=== PATIENT | male | born 1955 | race Caucasian/White ===

== ENCOUNTER → 2018-02-25 | Outpatient (CLI) | payer BC ==
[~2018-02-25] MED LIST: ALBU1AER9 INH; ATV1 PO; CALC-393 PO; CLOP1TAB15 PO; CLR10 PO; COLE1TAB5 PO; DOCU-94 PO; EZET10TA63 PO; FLUT1AER5 INH; LANS30CA12 PO; LOSA1TAB38 PO; MULT-506 PO; NIFE1TAB PO; OMEG10007 PO; PROP1TAB PO; ROSU5TAB PO; RXC5 PO; TRAM-10 PO; VALA500T60 PO
== END | disposition home or self-care (01) ==
LOC: C.RDSM 15:03
PROVIDERS: ATTEND Orthopaedic Surgery Sports Medicine
DX: M25.562 Pain in left knee (principal)

== ENCOUNTER 2021-06-27 05:38 | Observation (INO) ==
--- NOTE | 2021-05-08 14:56 | PAT Medication Instructions ---
Medication Instructions Date of Service May 08, 2021 Home Medications calcium carbonate 500 mg calcium (1,250 mg) tablet 500 mg PO QAM clopidogrel 75 mg tablet (Plavix) 75 mg PO QAM colestipol 1 gram tablet 1 g PO HS tab ezetimibe 10 mg tablet (Zetia) 10 mg PO HS lansoprazole 30 mg capsule,delayed release (Prevacid) 30 mg PO QAM losartan 100 mg tablet (Cozaar) 100 mg PO QAM omega-3 fatty acids 1,000 mg capsule (Fish Oil Concentrate) 1,000 mg PO QAM rosuvastatin 5 mg tablet (Crestor) 5 mg PO HS valacyclovir 500 mg tablet (Valtrex) 500 mg PO QAM albuterol sulfate 90 mcg/actuation aerosol inhaler (Ventolin HFA) 2 puff INHALATION Q4H PRN buspirone 10 mg tablet 10 mg PO BID fluticasone propionate 110 mcg/actuation HFA aerosol inhaler (Flovent HFA) 1 puff INHALATION Q12H hydrochlorothiazide 12.5 mg tablet 12.5 mg PO BID loratadine 10 mg capsule 10 mg PO DAILY PRN mecobalamin (vitamin B12) 1,000 mcg chewable tablet 1,000 mcg PO QAM nifedipine 90 mg tablet,extended release 90 mg PO HS tramadol 50 mg tablet 50 mg PO Q6H PRN propranolol 120 mg capsule,extended release 24 hr 120 mg PO HS ASK your prescriber and surgeon clopidogrel 75 mg tablet (Plavix) 75 mg PO QAM STOP taking 2 weeks before surgery omega-3 fatty acids 1,000 mg capsule (Fish Oil Concentrate) 1,000 mg PO QAM STOP taking 48 hours before surgery colestipol 1 gram tablet 1 g PO HS DO NOT take the morning of surgery calcium carbonate 500 mg calcium (1,250 mg) tablet 500 mg PO QAM losartan 100 mg tablet (Cozaar) 100 mg PO QAM mecobalamin (vitamin B12) 1,000 mcg chewable tablet 1,000 mcg PO QAM hydrochlorothiazide 12.5 mg tablet 12.5 mg PO BID loratadine 10 mg capsule 10 mg PO DAILY PRN Take morning of surgery With a small sip of water, OTHERWISE NOTHING TO EAT OR DRINK AFTER MIDNIGHT: lansoprazole 30 mg capsule,delayed release (Prevacid) 30 mg PO QAM tramadol 50 mg tablet 50 mg PO Q6H PRN (up to 4 hours before surgery) fluticasone propionate 110 mcg/actuation HFA aerosol inhaler (Flovent HFA) 1 puff INHALATION Q12H albuterol sulfate 90 mcg/actuation aerosol inhaler (Ventolin HFA) 2 puff INHALATION Q4H PRN (if needed-bring with you to hospital on day of surgery if able) buspirone 10 mg tablet 10 mg PO BID valacyclovir 500 mg tablet (Valtrex) 500 mg PO QAM Take evening before surgery propranolol 120 mg capsule,extended release 24 hr 120 mg PO HS nifedipine 90 mg tablet,extended release 90 mg PO HS rosuvastatin 5 mg tablet (Crestor) 5 mg PO HS buspirone 10 mg tablet 10 mg PO BID hydrochlorothiazide 12.5 mg tablet 12.5 mg PO BID ezetimibe 10 mg tablet (Zetia) 10 mg PO HS Other Notes If you have any questions please call us at [phone] or [phone] or [phone] or [phone]
--- NOTE | 2021-05-14 11:24 | Anesthesiology Consultation ---
Date of Service May 14, 2021 Assessment & Plan (1) Encounter for pre-operative examination: Chart Review Chart Review: Acceptable Risk for Surgery (pending preop Covid testing results ) and Patient seen in Pre Admission Testing Per PAT appt on 05/14/21, patient denies any recent travel or large group activities. No known Covid positive contacts or Covid related symptoms. No known Covid infection in the past 90 days. Pt is vaccinated for Covid. Preop Covid testing scheduled 05/28/21= will await results. Educated on importance of self quarantining, social distancing and wearing mask in public for the patient one week prior to surgery and after Covid testing done Vascular surgery made aware of upcoming prostatectomy- per vascular surgery response on 05/02/21= "I think it would be reasonable to hold his Plavix for 5-7 days for his procedure. I would suspect that Urology will not allow him to take ASA for the procedure. Should resume Plavix post surgery PRAMOD when Urology deems it safe." Teaching & Discussion Pre-Anesthesia Teaching/Discussion Notes: Instructed NPO after midnight before surgery,except medications with 15 cc of water. Medication instructions provided according to the PAT guidelines. History Surgery Operation Date: 05/30/21 07:30 Proposed Procedures p Laparoscopic Robotic Assisted Radical Retropubic Prostatectomy, Possible Open Possible Pelvic Lymph Node Dissection, Possible Suprapubic Tube Palcement - Ankur Chin, DO Height/Weight Height: 5 ft 10 in Weight: 103.6 kg Allergies Allergy/AdvReac Type Severity Reaction Status Date / Time niacin Allergy upset Verified 05/07/21 11:07 stomach valsartan [From Diovan] Allergy Rash Verified 05/07/21 11:07 hydrocodone AdvReac Mild GI upset Verified 05/14/21 11:22 [id number]-Ntq Reductase AdvReac Mild MYALGIAS Verified 05/07/21 11:07 Inhibitor enalapril AdvReac cough Verified 05/07/21 11:07 fenofibrate AdvReac abdominal Verified 05/07/21 11:07 discomfort gemfibrozil AdvReac abdominal Verified 05/07/21 11:07 discomfort Medications Home Medications Medication Instructions Recorded Confirmed Last Taken calcium carbonate 500 mg calcium 500 mg PO QAM 11/27/20 05/07/21 Unknown (1,250 mg) tablet clopidogrel 75 mg tablet (Plavix) 75 mg PO QAM 11/27/20 05/07/21 Unknown colestipol 1 gram tablet 1 g PO HS tab 11/27/20 05/07/21 Unknown ezetimibe 10 mg tablet (Zetia) 10 mg PO HS 11/27/20 05/07/21 Unknown lansoprazole 30 mg capsule,delayed 30 mg PO QAM 11/27/20 05/07/21 Unknown release (Prevacid) losartan 100 mg tablet (Cozaar) 100 mg PO QAM 11/27/20 05/08/21 Unknown omega-3 fatty acids 1,000 mg 1,000 mg PO QAM 11/27/20 05/07/21 Unknown capsule (Fish Oil Concentrate) rosuvastatin 5 mg tablet (Crestor) 5 mg PO HS 11/27/20 05/07/21 Unknown valacyclovir 500 mg tablet 500 mg PO QAM 11/27/20 05/07/21 Unknown (Valtrex) albuterol sulfate 90 mcg/actuation 2 puff INHALATION Q4H PRN g 04/03/21 05/07/21 Unknown aerosol inhaler (Ventolin HFA) buspirone 10 mg tablet 10 mg PO BID 04/03/21 05/07/21 Unknown fluticasone propionate 110 1 puff INHALATION Q12H 04/03/21 05/07/21 Unknown mcg/actuation HFA aerosol inhaler (Flovent HFA) hydrochlorothiazide 12.5 mg tablet 12.5 mg PO BID 04/03/21 05/07/21 Unknown loratadine 10 mg capsule 10 mg PO DAILY PRN 04/03/21 05/07/21 Unknown mecobalamin (vitamin B12) 1,000 1,000 mcg PO QAM 04/03/21 05/07/21 Unknown mcg chewable tablet nifedipine 90 mg tablet,extended 90 mg PO HS 04/03/21 05/07/21 Unknown release tramadol 50 mg tablet 50 mg PO Q6H PRN 04/03/21 05/07/21 Unknown propranolol 120 mg 120 mg PO HS 05/08/21 05/08/21 Unknown capsule,extended release 24 hr Past Medical History Medical History (Updated 05/14/21 @ 16:24 by Deidre Deleon PA-C) Acid reflux Well controlled and stable Anxiety Asthma Uses albuterol PRN inh 2-3xwk on avg Breathing stable Barretts esophagus Stable Carotid stenosis [facility] Vascular Surgery monitoring- Dr. Anderson Chua S/p left CEA - 2012 (<50% stenosis to left ICA) Right ICA 50-69% stenosis per 02/2020 carotid doppler Chronic anticoagulation Fatty liver History of COVID-19 09/2020; sob, cough, fever, body aches, chills; fully recovered History of TIA (transient ischemic attack) 2012 per records Hypercholesteremia Hypertension Lumbar stenosis with neurogenic claudication PAD (peripheral artery disease) Prediabetes Prostate cancer recently dx Exercise / Class Metabolic Activity II 4-5 Yardwork/Stairs/Walk up hill (one flight of stairs - no chest pain or SOB ) Past Family History Family History Father , 53yo Heart disease Brother Heart disease Status post cardiac surgery Smoker Mother , 62yo Bowel obstruction Sister Accident Sister Diabetes Sister Stroke Daughter No problems noted. Other No family history of adverse response to anesthesia Past Surgical History Surgical History (Updated 05/14/21 @ 11:45 by Deidre Deleon PA-C) H/O adenoidectomy History of endarterectomy Thromboendarterectomy , neck Lt 2012 History of esophagogastroduodenoscopy History of lumbar fusion lumbar hemilaminectomy X 2 History of prostate biopsy Hx of cholecystectomy Hx of colonoscopy Hx of tonsillectomy Past Anesthesia History No Hx of Anesthesia Complications and No Family Hx of Anesthesia Complications History of PONV No Hx of PONV and No Hx of Motion Sickness Social History Smoking Status: Former smoker Smoking cigarettes per day: 1 PPD x 30 yrs Do You Dip or Chew Tobacco: No Smoking End Date: quit 12 years ago Hx Alcohol Use: Yes (6 beers/day;Occasssional wine) Alcohol type: beer alcohol intake frequency: 3 or more drinks per day Hx Substance Use: No substance use type: does not use Review of Systems Occ shortness of breath- weather dependent Hx of snoring- no hx of sleep study Patient denies chest pain, shortness of breath, cough, wheezing, palpitations. No hx of seizures, [place], apnea/snoring. No hx of blood clots or blood transfusions Physical Exam Vital Signs VITALS BP 137/84 P 72 TEMP 97.9 SP02 97% RESP 16 Constitutional no acute distress ENMT Mouth: no TMJ clicking Thyromental Distance: < 3.5 Finger Breadths (3.0) Mallampati Class: II Crowns to molars Neck + limited neck extension (moderate ) Respiratory normal respiratory effort; no respiratory distress Auscultation: lungs clear to auscultation bilaterally and + diminished lung sounds (generalized throughout ); no wheezes Cardiovascular Rate/Rhythm: regular rate and regular rhythm Heart Sounds: no murmur Vessels: no carotid bruit Musculoskeletal Spine: no pain with cervical ROM Extremities: extremities normal to inspection Psychiatric Orientation: alert Lab Results Anesthesia Preop Results Results Anesthesia Widget: WBC 7.12 K/uL (4.8-10.8) 05/14/21 Hgb 14.1 g/dL (14.0-18.0) 05/14/21 Hct 40.6 % (42-52) L 05/14/21 Plt 333 K/uL (130-400) 05/14/21 Na 137 mmol/L (136-145) 05/14/21 K 4.0 mmol/L (3.5-5.1) 05/14/21 Cl 101 mmol/L (98-107) 05/14/21 CO2 29 mmol/L (21-32) 05/14/21 BUN 10 mg/dl (7-18) 05/14/21 Creat 1.01 mg/dl (0.6-1.4) 05/14/21 Glucose Level 127 mg/dl (70-99) H 05/14/21 Blood Type A Positive 05/14/21 Antibody Screen NEGATIVE 05/14/21 Testing Laboratory Results 05/02/21= UA: Negative URINE CULTURE: No growth Electrocardiogram Date: 05/14/21 Findings: + NSR @ (67bpm) and + no change from (from Oct 01, 2015 per cardio ) Normal EKG per cardio. Chest X-Ray Date: 05/14/21 Findings: + NAD Calcified plaque of the thoracic aorta. Mild hyperinflation. No pneumothorax, pleural effusion, airspace consolidation or overt pulmonary edema. Other Testing Carotid doppler 02/21/20= Right carotid artery duplex examination indicates evidence of 50-69% stenosis of the internal carotid artery. Left carotid artery duplex examination indicates evidence of less than 50% stenosis of the internal carotid artery.
[~2021-06-27 05:38] MED LIST changes: -ALBU1AER9 INH; -ATV1 PO; -CALC-393 PO; -CLOP1TAB15 PO; -CLR10 PO; -COLE1TAB5 PO; -DOCU-94 PO; -EZET10TA63 PO; -FLUT1AER5 INH; +HEPARIN SOD 5,000 UNIT/0.5 ML VIAL SQ SCH; +LACTATED RINGER'S 1,000 ML IV SCH; -LANS30CA12 PO; -LOSA1TAB38 PO; -MULT-506 PO; -NIFE1TAB PO; -OMEG10007 PO; -PROP1TAB PO; -ROSU5TAB PO; -RXC5 PO; -TRAM-10 PO; -VALA500T60 PO; +ceFAZolin 2000MG 2,000 MG/15 ML SYR IV SCH
[2021-06-27] MEDS ORDERED: HEPARIN SOD 5,000 UNIT/0.5 ML VIAL SQ SCH (06:00)
[2021-06-27] MEDS ORDERED: ceFAZolin 2000MG 2,000 MG/15 ML SYR IV SCH (06:00)
[2021-06-27] MEDS ORDERED: LACTATED RINGER'S 1,000 ML IV SCH (06:00)
[2021-06-27] MEDS ORDERED: BUPIVACAINE 0.5 % 5 MG/1 ML MPF 30ML VIAL ONE (07:00)
--- NOTE | 2021-06-27 07:04 | History & Physical Report ---
Date of Service June 27, 2021 Assessment & Plan (1) Prostate cancer: Plan: Patient has unfavorable intermediate risk disease with 4+3. Patient is undergone imaging. Prostate MRI had found a lesion abutting the right posterior lateral edge of the prostate. Risks and benefits discussed at length for procedure. These include bleeding, infection, injury to surrounding tissues or organs, and risks associated with anesthesia. Patient states understanding and agrees to proceed. Will sign consent and proceed with Robot Asst Laparoscopic Radical Prostatectomy with bilateral pelvic lymph node dissection History of Present Illness Primary Care Provider: Ryan Woods PA-C Patient here for procedure. No changes in medical issues. No major changes in urinary issues. Continued issues and concerns. No change in pain or discomfort. No severe fevers or chills. No chest pain or shortness of breath. Risks and benefits discussed at length for procedure. These include bleeding, infection, injury to surrounding tissues or organs, and risks associated with anesthesia. Patient and/or family states understanding and agrees to proceed. Consent and supporting information completed. Allergies Allergy/AdvReac Type Severity Reaction Status Date / Time niacin Allergy upset Verified 06/27/21 06:13 stomach valsartan [From Diovan] Allergy Rash Verified 06/27/21 06:13 hydrocodone AdvReac Mild GI upset Verified 06/27/21 06:13 [id number]-CoH Reductase AdvReac Mild MYALGIAS Verified 06/27/21 06:13 Inhibitor [Gmquboz-Rgl-Hld Reductase Inhibitor] enalapril AdvReac cough Verified 06/27/21 06:13 fenofibrate AdvReac abdominal Verified 06/27/21 06:13 discomfort gemfibrozil AdvReac abdominal Verified 06/27/21 06:13 discomfort Home Medications Medication Instructions Recorded Confirmed Type calcium carbonate 500 mg calcium 500 mg PO QAM 11/27/20 06/27/21 History (1,250 mg) tablet clopidogrel 75 mg tablet (Plavix) 75 mg PO QAM 11/27/20 06/27/21 History colestipol 1 gram tablet 1 g PO HS tab 11/27/20 06/27/21 History ezetimibe 10 mg tablet (Zetia) 10 mg PO HS 11/27/20 06/27/21 History lansoprazole 30 mg capsule,delayed 30 mg PO QAM 11/27/20 06/27/21 History release (Prevacid) losartan 100 mg tablet (Cozaar) 100 mg PO QAM 11/27/20 06/27/21 History omega-3 fatty acids 1,000 mg 1,000 mg PO QAM 11/27/20 06/27/21 History capsule (Fish Oil Concentrate) rosuvastatin 5 mg tablet (Crestor) 5 mg PO HS 11/27/20 06/27/21 History valacyclovir 500 mg tablet 500 mg PO QAM 11/27/20 06/27/21 History (Valtrex) albuterol sulfate 90 mcg/actuation 2 puff INHALATION Q4H PRN g 04/03/21 06/27/21 History aerosol inhaler (Ventolin HFA) buspirone 10 mg tablet 10 mg PO BID 04/03/21 06/27/21 History fluticasone propionate 110 1 puff INHALATION Q12H 04/03/21 06/27/21 History mcg/actuation HFA aerosol inhaler (Flovent HFA) hydrochlorothiazide 12.5 mg tablet 12.5 mg PO BID 04/03/21 06/27/21 History loratadine 10 mg capsule 10 mg PO DAILY PRN 04/03/21 06/27/21 History mecobalamin (vitamin B12) 1,000 1,000 mcg PO QAM 04/03/21 06/27/21 History mcg chewable tablet nifedipine 90 mg tablet,extended 90 mg PO HS 04/03/21 06/27/21 History release tramadol 50 mg tablet 50 mg PO Q6H PRN 04/03/21 06/27/21 History propranolol 120 mg 120 mg PO HS 05/08/21 06/27/21 History capsule,extended release 24 hr Past Med/Surg History Medical History Acid reflux Well controlled and stable Anxiety Asthma Uses albuterol PRN inh 2-3xwk on avg Breathing stable Barretts esophagus Stable Carotid stenosis [facility] Vascular Surgery monitoring- Dr. Anderson Chua S/p left CEA - 2012 (<50% stenosis to left ICA) Right ICA 50-69% stenosis per 02/2020 carotid doppler Chronic anticoagulation Fatty liver History of COVID-19 09/2020; sob, cough, fever, body aches, chills; fully recovered History of TIA (transient ischemic attack) 2012 per records Hypercholesteremia Hypertension Lumbar stenosis with neurogenic claudication PAD (peripheral artery disease) Prediabetes Prostate cancer recently dx Surgical History H/O adenoidectomy History of endarterectomy Thromboendarterectomy , neck Lt 2012 History of esophagogastroduodenoscopy History of lumbar fusion lumbar hemilaminectomy X 2 History of prostate biopsy Hx of cholecystectomy Hx of colonoscopy Hx of tonsillectomy Family History Father , 53yo Heart disease Brother Heart disease Status post cardiac surgery Smoker Mother , 62yo Bowel obstruction Sister Accident Sister Diabetes Sister Stroke Daughter No problems noted. Other No family history of adverse response to anesthesia Social History Smoking Status: Former smoker Tobacco Type: Cigarettes Cigarettes Per Day: 1 PPD x 30 yrs; Smoking End Date: quit 12 years ago; Second Hand Exposure: No; Do You Dip or Chew Tobacco: No; Tobacco Cessation Education Requested by Patient: No Hx Alcohol Use: Yes (6 beers/day;Occasssional wine) Alcohol type: beer Hx Substance Use: No Preferred Language: Slovak Communication Ability: Effective Visual Impairment: No Limitations Hearing Ability: Normal Saturation Diver Required: No Beliefs That Will Affect Care: None marital status: Current Living Situation: Spouse current occupational status: employed 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 No Acute illness. . HEENT: Inspection normal. Normal inspection of face. Normal inspection of neck. Psychologic: Normal affect/No change in mentation. Respiratory: No use of accessory muscles. No respiratory changes or exacerbation or changes with tachypnea or dyspnea. Cardiovascular: No tachycardia Skin: [place] and Dry. No new rashes or visible lesions. Abdomen: Normal inspection. No guarding. Results & Data ([facility]) Vital Signs (Past 12 Hours) Vital Signs Temp Pulse Resp BP Pulse Ox 06/27/21 06:25 36.8 C 69 20 192/94 H 96 PG Care Time/CCT Total # of Minutes Spent Total Time Spent with Patient: Total time spent is greater than 50% in coordination of care (as documented) at patient's floor/unit and/or counseling patient: Coding Level of Care Code None Diagnoses Prostate cancer C61
[2021-06-27] MEDS ORDERED: MIDAZOLAM HCL 1 MG/ML 2ML VIAL ONE (07:17)
[2021-06-27] MEDS ORDERED: fentaNYL citrate 100 MCG/2 ML VIAL ONE ×2 (07:17→07:39)
[2021-06-27] MEDS ORDERED: DEXAMETHASONE SOD INJ 4 MG/ML VIAL ONE (08:24)
[2021-06-27] MEDS ORDERED: LARYING-O-JET KIT (LTA) ONE (08:24)
[2021-06-27] MEDS ORDERED: PROPOFOL IV EMULSION 10 MG/ML 20 ML VIAL IV ONE ×3 (08:24→10:31)
[2021-06-27] MEDS ORDERED: NEOSTIGMINE METHYLSULFATE 1 MG/ML 10ML VIAL ONE (08:24)
[2021-06-27] MEDS ORDERED: LIDOCAINE 2% 2 ML VIAL/AMP(20MG/ML) INFIL ONE (08:24)
[2021-06-27] MEDS ORDERED: HYDROmorphone INJ 2 MG/ML SYR/VIAL ONE (08:24)
[2021-06-27] MEDS ORDERED: ROCURONIUM BROMIDE 10 MG/ML 5 ML VIAL IV ONE ×2 (08:24→10:22)
[2021-06-27] MEDS ORDERED: ONDANSETRON INJ 2 MG/ML 2 ML VIAL ONE (08:24)
[2021-06-27] MEDS ORDERED: GLYCOPYRROLATE 0.2 MG/ML VIAL ONE ×2 (08:24→10:24)
[2021-06-27] MEDS ORDERED: ATROPINE SULFATE 0.1 MG/ML 10ML SYR IV PRN (08:47)
[2021-06-27] MEDS ORDERED: ePHEDrine sulfate 50 MG/ML AMP IV PRN (08:47)
[2021-06-27] MEDS ORDERED: FLOSEAL HEMOSTATIC MATRIX 10ML TOP ONE (09:49)
--- NOTE | 2021-06-27 11:05 | Operative Report ---
PG Post Operative Report Pre & Post Diagnosis Operation Date: 06/27/21 07:30 Pre-Op Diagnosis: Prostate Cancer Post-Op Diagnosis: Prostate Cancer I identified the patient and participated in the time-out.: Yes Procedure Operation Date: 06/27/21 07:30 Actual Procedures Laparoscopic Robotic Assisted Radical Retropubic Prostatectomy and bilateral pelvic lymph node dissection Extensive lysis of adhesions - Ankur Chin DO Surgeon Ankur Chin, II, DO Entry Level Sales Consultant Carina ALMANZAR Estimated Blood Loss 20 Findings Consistent with Post-Op Diagnosis Significant adhesions of the sigmoid colon to the pelvic sidewalls. Specimens Prostate and Seminal Vesicle Left Pelvic Lymph Nodes Right Pelvic Lymph Nodes. Drains 18 Silicon Michaud catheter. Anesthesia Type General Complications none Disposition Disposition: Recovery Room Indications Patient with Prostate Cancer. Risk and benefits were discussed at length. Patient elected to undergo robotic assisted laparoscopic Radical Prostatectomy. Description of Procedure The patient was brought to the operative suite and placed under general endotracheal intubation anesthesia in the supine position. The patient was transferred to the dorsal lithotomy position. At this point, the patient prepped and draped in the usual sterile fashion and a timeout was completed. Preoperative antibiotics of Ancef 2 grams had been given. SAMMI's and SCD's were placed on the patient's lower extremities. A catheter was placed using sterile technique. With the time out completed the patient was placed into Trendelenburg and the skin at the umbilicus was anesthetized. A small incision was made superior to the umbilicus. A Varess Needle was placed and confirmed to be in the abdominal cavity. Water drop test passed. The Abdominal cavity was insufflated to 15 mmHG. The camera port was then placed. A laparoscopic camera was placed into the port and the abdominal cavity inspected. No concerning features were noted. At this point, the skin was marked for port placement and 8mm working ports were placed. The skin was anesthetized down to fascia and an approx 1cm incision was made to place the 3 x 8mm ports. A 12 mm and 5 mm electrical assistant ports were also placed in similar fashion under direct visualization. The patient was transferred into steep Trendelenburg position and the legs lowered. The robot was positioned and docked. The camera was placed and all trocars were positioned under direct visualization. Josh ALMANZAR was integral in port placement, camera utilization, and docking procedure. She remained in sterile attire and then proceeded to assist for the majority of the case. Crissy Couch scrubbed in for Barbie Mcdonough for the anastomosis of the urethra to the bladder and assisted with the remainder of the case. At this point, I transitioned to the robotic console. At this point, the sigmoid colon was mobilized superiorly and the pelvis assessed. Adhesions were freed to allow mobilization. Extensive lysis of adhesions with greater than 20 minutes spent lysing these adhesions from the sigmoid colon and the pelvic wall. The peritoneum in the midline was opened between rectum and bladder and the vas deferens and seminal vesicles exposed. These were dissected with blunt technique. The vas was clipped and cut and mobilized. Cautery was used to assist dissection avoiding the tissue posteriorly near the rectum. The tissues lateral to the seminal vesicles were clipped with a hemolock and all bleeding controlled. This was taken as inferior as possible from this position. The medial umbilical ligaments were then identified and the peritoneum directly lateral on the right followed by the left was opened. The tissues were bluntly dissected to free the bladder's lateral attachments. This was taken down to the pubic bone and exposed the endopelvic fascia bilaterally. The medial ligaments were cut and the bladder dropped. The tissues was dissected anterior to the prostate. The endopelvic fascia on each side was then opened and the lateral edges of the prostate dissected. The Dorsal venous complex of the prostate was dissected and assessed. A 2-0 suture was used to ligate the vessels. A suspension stitch was used and clipped. Electrocautery was used to cut the anterior attachments, the puboprostatic ligaments, and venous tissues. The right and left pelvic lymph tissue was identified in relation to the iliac vessels. Distal dissection was taken to the Node of [place]. Inferiorly the obtorator vessels and nerve were identified. Lymphatic tissue within the surround fat tissue was dissected. This packet of tissues were sent for pathologic analysis and lymph node assessment. This was done for each separate side. Hemostatic agent was placed on the exposed vessels. The michaud was manipulated to better visual the bladder neck and dissection was taken using electrocautery. The bladder neck was opened and dissected from the prostate. The UO were identifed and dissection taken in a direction to avoid each side. The vas stump and seminal vesicles were exposed and used to assist in traction to dissect. The prostatic pedicles were better exposed. The posterior prostate was dissected. An attempt was made to limit cautery and utilize cold dissection of the lateral posterior prostate to attempt preservation of the neurovascular bundle bilaterally. Hemolock clips were utilized to clip the prostatic pedicle bilaterally. The dissection was taken to the apex of the prostate. The anterior prostate was released and the urethra exposed. Cold cutting was used to open the anterior portion and expose the catheter. This was removed and the urethra incised. The prostate was further freed and grasped and removed from the field. The entire dissection bed was inspected.Hemostatic agent was placed in the region. No areas of injury or bleeding was noted. Care was taken to examine the perirectal tissues. A probe was placed and no injuries or other issues were observed. At this point, Ceasar agudeloke scrub and the remainder of the case was assisted by Crissy Couch who assisted with all aspects the case until closer of the skin. The bladder neck and urethra were then approximated with a running barbed suture starting at the 5 o'clock position and moving to the 12 o'clock on each side. This was tied at the anterior portion. A leak test was completed without any evidence of issues. The entire dissection space was inspected one final time. No bleeding or injuries or areas of concern were noted. No tumor or other concerning features were noted. At this point, the robot was undocked and moved away from the patient. The patient was taken out of Trendelenberg. The port sites were all assessed laparoscopically. The endoscopic bag was moved into the midline port. The 12 mm port site was closed with the Tyrone Ashley device. The other ports were assessed and no issues observed. The umbilical incision was opened further exposing fascia which was then opened in order to removed the prostate in the bag. The prostate was removed. A running PDS suture was used to close fascia. The skin at each site was closed with yoli. The area was cleaned and glue placed on each incision. The patient was cleaned and bandaged, aroused from anesthesia, and transferred to the pacu in stable condition having tolerated the procedure well with no complications. I was present and participated in all aspects of the procedure. Bharat ALMANZAR was critical in the portions as mentioned above. Will plan to observe postoperatively and monitor. Michaud to be remain in place until followup. We will plan to have yoli removed in approximately week and follow her out in 2 weeks. Can do path review at time of Michaud removal I attest to the content of the Intraoperative Record and any orders documented therein. Any exceptions are noted below.
[2021-06-27] MEDS: fentaNYL citrate 100 MCG/2 ML VIAL IV PRN ×4 (11:10→11:25)
[2021-06-27] MEDS ORDERED: METOCLOPRAMIDE HCL INJ 5 MG/ML 2 ML VIAL IV PRN (11:13)
[2021-06-27] MEDS ORDERED: PROMETHAZINE HCL 12.5 MG in SODIUM CHLORIDE 0.9% 50 ML IV PRN (11:13)
[2021-06-27] MEDS ORDERED: ONDANSETRON INJ 2 MG/ML 2 ML VIAL IV PRN ×2 (11:13→13:04)
[2021-06-27] MEDS ORDERED: METOCLOPRAMIDE HCL INJ 5 MG/ML 2 ML VIAL ONE (11:23)
[2021-06-27] MEDS: HYDROmorphone INJ 2 MG/ML SYR/VIAL IV PRN ×4 (11:33→11:48)
[2021-06-27 11:39] LABS: Basophils # (auto) 0.03 K/uL (0-0.2); Basophils % (auto) 0.2 %; Eosinophils # (auto) 0.07 K/uL (0-0.5); Eosinophils % (auto) 0.5 %; Hematocrit (blood only) 38.8 % (42-52); Hemoglobin 13.3 g/dL (14.0-18.0); Immature Granulocytes # (auto) 0.06 K/uL (0.00-0.02); Immature Granulocytes % (auto) 0.5 %; Lymphocytes % (auto) 6.3 %; Mean Corpuscular Volume 93.5 fL (80-100); Mean Platelet Volume 9.3 fL (7.4-10.4); Monocytes # (auto) 0.47 K/uL (0.11-0.59); Monocytes % (auto) 3.7 %; Neutrophils # (auto) 11.34 K/uL (1.4-6.5); Neutrophils % (auto) 88.8 %; Platelet Count 279 K/uL (130-400); RDW Coefficient of Variation 13.7 % (11.5-14.5); Red Blood Count 4.15 M/uL (4.7-6.1); White Blood Count 12.77 K/uL (4.8-10.8)
[2021-06-27] MEDS ORDERED: PROMETHAZINE HCL INJ 25 MG/ML 1 ML VIAL ONE (11:39)
[2021-06-27] MEDS ORDERED: SODIUM CHLORIDE 0.9% INJ 10 ML VIAL ONE (11:40)
[2021-06-27 11:43] LABS: Mean Corpuscular Hgb Conc 34.3 g/dL (32-36)
[2021-06-27 11:56] LABS: BUN Creatinine Ratio 8.5 (10-20); Calcium 8.9 mg/dl (8.5-10.1); Creatinine Clr Calc Pharmacy 77.1 ml/min; Est GFR (African American) 76.4 ml/min; Potassium 3.9 mmol/L (3.5-5.1)
[2021-06-27] MEDS: LACTATED RINGER'S 1,000 ML IV SCH ×2 (12:55→16:03)
[2021-06-27] MEDS ORDERED: ALBUTEROL HFA 8 GM INHALER INH PRN (13:04)
[2021-06-27] MEDS ORDERED: oxyCODONE HCL IR 5 MG TAB (IMMEDIATE RELEASE) PO PRN ×2 (13:04)
[2021-06-27] MEDS ORDERED: LORATADINE 10 MG TAB PO PRN (13:04)
--- NOTE | 2021-06-27 14:29 | Anesthesiology Progress Note ---
Date of Service June 27, 2021 Anesthesia Post Procedure Vital Signs Vital Signs: Temp Pulse Resp BP Pulse Ox 06/27/21 13:57 36.6 C 100 H 18 140/87 100 06/27/21 13:30 36.5 C 98 H 14 112/79 97 06/27/21 13:00 36.6 C 102 H 16 144/88 H 98 06/27/21 12:15 83 16 112/86 96 06/27/21 12:00 36.4 C L 78 16 117/97 96 06/27/21 11:50 75 16 126/76 99 06/27/21 11:40 84 16 163/82 H 97 06/27/21 11:30 83 16 159/109 H 100 06/27/21 11:20 62 16 179/84 H 98 06/27/21 11:10 78 16 193/95 H 96 06/27/21 11:04 36.3 C L 68 20 182/99 H 96 06/27/21 06:25 36.8 C 69 20 192/94 H 96 Pain Intensity Lower Medial Back: Pain Intensity: 4 Transfer of Care Handoff Completed per policy Notes Mental Status: alert / awake / arousable and participated in evaluation Patient Amnestic to Procedure: Yes Nausea / Vomiting: adequately controlled Pain: adequately controlled Airway Patency, RR, SpO2: stable & adequate BP & HR: stable & adequate Hydration State: stable & adequate Anesthetic Complications: no major complications apparent
[2021-06-27] MEDS: MoRPHine SULFATE 2 MG/ML CARP IV PRN ×3 (14:36→20:33)
[2021-06-27] MEDS: FLUTICASONE HFA 110MCG INHALER INH SCH ×2 (15:29→20:19)
[2021-06-27] MEDS: ceFAZolin 2000MG 2,000 MG/15 ML SYR IV SCH (16:38)
[2021-06-27] MEDS: busPIRone 5 MG TAB PO SCH (20:18)
[2021-06-27] MEDS: HEPARIN SOD 5,000 UNIT/0.5 ML VIAL SQ SCH (20:20)
[2021-06-27] MEDS: hydroCHLOROthiazide 25 MG TAB PO SCH (20:21)
[2021-06-27] MEDS: ACETAMINOPHEN 325 MG TAB PO PRN (20:32)
[2021-06-27] MEDS ORDERED: EZETIMIBE 10 MG TABLET PO SCH (21:00)
[2021-06-27] MEDS ORDERED: PROPRANOLOL HCL 60 MG LA CAP PO SCH (21:00)
[2021-06-27] MEDS ORDERED: NIFEdipine EXTENDED REL 30 MG TABCR PO SCH (21:00)
[2021-06-27] MEDS ORDERED: ROSUVASTATIN CALCIUM 5 MG TAB PO SCH (21:00)
[2021-06-27] MEDS ORDERED: COLESTIPOL HCL 1 GM TAB PO SCH (22:00)
[2021-06-27] MEDS: traMADol HCL 50 MG TABLET PO PRN (22:41)
[2021-06-28] MEDS: ceFAZolin 2000MG 2,000 MG/15 ML SYR IV SCH (00:01)
[2021-06-28] MEDS: MoRPHine SULFATE 2 MG/ML CARP IV PRN ×3 (00:09→08:58)
[2021-06-28] MEDS ORDERED: COUGH DROP (SUGAR FREE) LOZ 24 LOZ/1 BOX BUCCAL ONE (05:31)
[2021-06-28 06:40] LABS: BUN Creatinine Ratio 12.2 (10-20); Calcium 8.3 mg/dl (8.5-10.1); Creatinine Clr Calc Pharmacy 66.3 ml/min; Est GFR (African American) 63.7 ml/min; Potassium 3.6 mmol/L (3.5-5.1)
[2021-06-28 06:53] LABS: Basophils # (auto) 0.02 K/uL (0-0.2); Basophils % (auto) 0.2 %; Eosinophils # (auto) 0.01 K/uL (0-0.5); Eosinophils % (auto) 0.1 %; Hematocrit (blood only) 30.8 % (42-52); Hemoglobin 10.3 g/dL (14.0-18.0); Immature Granulocytes # (auto) 0.03 K/uL (0.00-0.02); Immature Granulocytes % (auto) 0.3 %; Lymphocytes # (auto) 1.37 K/uL (1.2-3.4); Lymphocytes % (auto) 15.6 %; Mean Corpuscular Hemoglobin 31.5 pg (25-34); Mean Corpuscular Hgb Conc 33.4 g/dL (32-36); Mean Corpuscular Volume 94.2 fL (80-100); Mean Platelet Volume 9.6 fL (7.4-10.4); Monocytes # (auto) 1.45 K/uL (0.11-0.59); Monocytes % (auto) 16.5 %; Neutrophils # (auto) 5.89 K/uL (1.4-6.5); Neutrophils % (auto) 67.3 %; Platelet Count 230 K/uL (130-400); RDW Coefficient of Variation 13.9 % (11.5-14.5); RDW Standard Deviation 47.8 fL (36.4-46.3); Red Blood Count 3.27 M/uL (4.7-6.1); White Blood Count 8.77 K/uL (4.8-10.8)
--- NOTE | 2021-06-28 07:58 | Urology Progress Note ---
Date of Service June 28, 2021 Assessment & Plan (1) Prostate cancer: Plan: 65 yo M POD #1 s/p Robotic Laparoscopic-Assisted Radical Retropubic Prostatectomy with Dr. Chin. - Doing well, progressing as expected - Afebrile, post op lab work reviewed and as expected - Tolerating clear liquid diet - advance to full liquids, d/c IV fluids - Encouraged OOB ambulation - Surgical dressing removed - Incisions appropriate - Mejia catheter intact, patent and draining clear concentrated yellow urine - Maintain Mejia catheter upon discharge - Anticipate discharge to home later today if he continues to progress as expected Patient reassessed at 1250. - Ambulated in hallway this am without difficulty - Tolerating diet, no nausea or vomiting - Patient ready for discharge today, will place orders - Home with Mejia catheter - Reviewed with Dr. Chin, patient can resume Plavix tomorrow if urine remains clear to light pink - Expected clinical course reviewed, all questions answered - Follow-up appointments in place Admission and Anticipated Discharge Date Admission Date: June 27, 2021 Subjective Pt POD #1 s/p Laparoscopic Robotic Assisted Radical Retropubic Prostatectomy and bilateral pelvic lymph node dissection Extensive lysis of adhesions with Dr. Chin. Patient seen and examined at bedside this AM. He is awake, alert and sitting up in bed. No acute issues overnight, but reports he did not sleep well. Reports incisional pain, improved with pain medication. Tolerating clear liquid diet, no nausea or vomiting. Has not passed flatus yet. Mejia catheter intact, patent and draining clear concentrated yellow urine. He was out of bed to bedside chair yesterday evening, but has not ambulated yet. No fever or chills. Review of Systems Constitutional: as per Subjective / HPI Gastrointestinal: as per Subjective / HPI Genitourinary: + as per Subjective / HPI Physical Exam Constitutional: well developed and well nourished; no acute distress and not ill appearing Respiratory: normal respiratory effort and able to speak in complete sentences; no respiratory distress and no labored breathing Cardiovascular: Extremities: no pedal edema Gastrointestinal (Abdomen): Inspection/Auscultation: abdomen normal to inspection; abdomen not distended Percussion/Palpation: abdomen soft; abdomen nontender and no guarding Skin: Surgical incisions with dressings C/D/I. Dressings removed. Incisions well approximated with yoli, no surrounding erythema, warmth or drainage. Minimal ecchymosis around midline incision. Neurologic: moves all extremities and awake Psychiatric: Orientation: alert, oriented x 3 and cooperative Genitourinary: Mejia catheter intact, patent and draining clear concentrated yellow urine Results & Data ([facility]) Vital Signs (Past 12 Hours) Vital Signs Temp Pulse Resp BP BP Pulse Ox 06/28/21 07:13 36.8 C 65 16 153/88 H 92 06/28/21 02:14 37.0 C 71 17 147/91 H 96 06/27/21 22:35 36.8 C 79 17 147/85 H 94 PG Care Time/CCT Total # of Minutes Spent Total Time Spent with Patient: Total time spent is greater than 50% in coordination of care (as documented) at patient's floor/unit and/or counseling patient: Coding Level of Care Code 79419 Subseq Hosp Care Lvl 2 Diagnoses Prostate cancer C61
[2021-06-28] MEDS ORDERED: PANTOprazole 40 MG TAB PO SCH (09:00)
[2021-06-28] MEDS ORDERED: CALCIUM CARBONATE 500 MG CHEWABLE TAB PO SCH (09:00)
[2021-06-28] MEDS ORDERED: valACYclovir HCL 500 MG TABLET PO SCH (09:00)
[2021-06-28] MEDS ORDERED: LOSARTAN POTASSIUM 50 MG TAB PO SCH (09:00)
[2021-06-28] MEDS ORDERED: CYANOCOBALAMIN 500 MCG TABLET (VITAMIN B-12) PO SCH (09:00)
[2021-06-28] MEDS: FLUTICASONE HFA 110MCG INHALER INH SCH (09:01)
[2021-06-28] MEDS: hydroCHLOROthiazide 25 MG TAB PO SCH (09:03)
[2021-06-28] MEDS: busPIRone 5 MG TAB PO SCH (09:04)
[2021-06-28] MEDS: HEPARIN SOD 5,000 UNIT/0.5 ML VIAL SQ SCH (09:06)
[2021-06-28] MEDS: traMADol HCL 50 MG TABLET PO PRN (11:22)
[2021-06-28] MEDS: ACETAMINOPHEN 325 MG TAB PO PRN (11:23)
--- NOTE | 2021-07-01 10:20 | Discharge Summary ---
Date of Service July 01, 2021 Admission HPI Per Admitting Provider Patient here for procedure. No changes in medical issues. No major changes in urinary issues. Continued issues and concerns. No change in pain or discomfort. No severe fevers or chills. No chest pain or shortness of breath. Risks and benefits discussed at length for procedure. These include bleeding, infection, injury to surrounding tissues or organs, and risks associated with anesthesia. Patient and/or family states understanding and agrees to proceed. Consent and supporting information completed. Principal Diagnosis Prostate cancer Discharge Exam General: Alert/Arousable. No Acute illness. . HEENT: Inspection normal. Normal inspection of face. Normal inspection of neck. Psychologic: Normal affect/No change in mentation. Respiratory: No use of accessory muscles. No respiratory changes or exacerbation or changes with tachypnea or dyspnea. Cardiovascular: No tachycardia Skin: [place] and Dry. No new rashes or visible lesions. Abdomen: Normal inspection. No guarding. Discharge Data Allergies Allergy/AdvReac Type Severity Reaction Status Date / Time niacin Allergy upset Verified 06/27/21 06:13 stomach valsartan [From Diovan] Allergy Rash Verified 06/27/21 06:13 hydrocodone AdvReac Mild GI upset Verified 06/27/21 06:13 Bolifyv-UAY-KxX Reductase AdvReac Mild MYALGIAS Verified 06/27/21 06:13 Inhibitor [Mqzwkse-Cld-Gul Reductase Inhibitor] enalapril AdvReac cough Verified 06/27/21 06:13 fenofibrate AdvReac abdominal Verified 06/27/21 06:13 discomfort gemfibrozil AdvReac abdominal Verified 06/27/21 06:13 discomfort Procedures Performed Operation Date: 05/30/21 07:30 <No data on this case meets the specified criteria> Operation Date: 06/27/21 07:30 Actual Procedures p Laparoscopic Robotic Assisted Radical Retropubic Prostatectomy with bilateral pelvic lymph node dissection (Not Applicable) - Ankur Chin, Hospital Course (1) Prostate cancer: 65 yo M POD #1 s/p Robotic Laparoscopic-Assisted Radical Retropubic Prostatectomy with Dr. Chin. - Doing well, progressing as expected - Afebrile, post op lab work reviewed and as expected - Tolerating clear liquid diet - advance to full liquids, d/c IV fluids - Encouraged OOB ambulation - Surgical dressing removed - Incisions appropriate - Mejia catheter intact, patent and draining clear concentrated yellow urine - Maintain Mejia catheter upon discharge - Anticipate discharge to home later today if he continues to progress as expected Patient reassessed at 1250. - Ambulated in hallway this am without difficulty - Tolerating diet, no nausea or vomiting - Patient ready for discharge today, will place orders - Home with Mejia catheter - Reviewed with Dr. Chin, patient can resume Plavix tomorrow if urine remains clear to light pink - Expected clinical course reviewed, all questions answered - Follow-up appointments in place Total Time Total Time Spent Total Time Spent (In Minutes): 10 Discharge Plan Discharge Items Patient Disposition: Home - Self-Care Reason For Visit: Prostate Cancer Discharge Diagnosis: Prostate Cancer Activity: Per Instructions section Lifting: No more than 10 pounds Bathing Comment: Okay to shower after discharge, no tub baths or soaking Sexual Activity: Wait until after follow-up appointment Exercise/Sports: Wait until after follow-up appointment Driving/Machine Use: No driving while taking prescription pain medications Non-emergency contact: Surgeon and Urologist Call non-emergency contact if: your symptoms worsen, your pain is not controlled, you have a fever, your temperature is above 101, your wound has increased redness, your wound has increased drainage and your wound pain has increased Follow-up/Referrals: Ankur Chin DO [Physician] - 07/09/21 2:40 pm (Pathology review) Ryan Woods PA-C [Primary Care Provider] - [facility],RN [FAKE FOR SCHEDULES] - 07/03/21 1:00 pm (Staple removal) [facility],Nurse [FAKE FOR SCHEDULES] - 07/09/21 3:00 pm (Catheter removal) Diet: Regular Addtl Attending Provider Instructions: Please take all medications as prescribed and keep all follow-ups as scheduled. Please call our office at [phone] with any questions, concerns or need to reschedule appointments for any reason. We are happy to assist you. We have sent an antibiotic to your pharmacy of choice. Please begin antibiotic as prescribed the day BEFORE your scheduled voiding trial at [facility]. Please continue antibiotic every 12 hours through the day AFTER your voiding trial. *You can resume your Plavix tomorrow if your urine remains clear to clear light pink. Activity: We recommend having someone with you for the first few days after surgery to help care for you. For the first 2 weeks after surgery, we would like you to get up and walk around your house. However, we recommend limit physical activity that would increase your heart rate. This will allow your body to rest and heal. Take naps if you feel tired. Don't lift anything heavier than 10 pounds, mow the law or ride a bicycle until your follow-up appointment. Please avoid long car rides. Home Care: Unless directed otherwise, drink 6 to 8 glasses of water a day (enough to keep your urine light colored). This will also help keep a healthy flow of urine. We recommend using a stool softener for the first two weeks to avoid constipation. Mejia Catheter or Suprapubic Catheter care: Keep the catheter well secured with either a leg back or leg strap with large bag. Empty your bag when it's about half full. You may notice some blood in the bag. This is normal after surgery and while the catheter is in place. Use mild soap (such as Dove or Dial) and water to wash the catheter and the head of your penis daily, or more frequently if needed. Return to your normal diet, we encourage good protein intake to promote healing. You may shower as normal. Please avoid tub baths or soaking until catheter removed and incisions well healed. Wearing sweat pants while you have the catheter is recommended, they will be more comfortable. Follow-up Your follow up appointments for having your catheter removed, and follow up with your physician should already be scheduled. If you have any questions regarding this, please contact our office. Your final pathology report will be discussed at your physician follow-up appointment. Call [facility] at [phone] right away if you have any of the following: Chest pain or trouble breathing (call [phone] or go to the hospital) Fever of 101F or higher, uncontrolled vomiting Heavy bleeding, clots, or bright red blood from the catheter Catheter that falls out or stops draining Foul-smelling discharge from your catheter Redness, swelling, warmth, or increased pain at your incision site Drainage, pus, or bleeding from your incision Pending Studies at Discharge: Yes Studies:: Pathology Stand-Alone Forms: My [facility], Opioid Pain Management, Smoking Cessation Medications and DC Order Prescriptions: New oxycodone-acetaminophen [Percocet] 5-325 mg tablet 1 tab PO TID PRN (Reason: pain) Qty: 10 RF: 0 docusate sodium [Colace] 100 mg capsule 100 mg PO BID Qty: 60 RF: 0 Continued mecobalamin (vitamin B12) 1,000 mcg tablet,chewable 1,000 mcg PO QAM RF: 0 albuterol sulfate [Ventolin HFA] 90 mcg/actuation HFA aerosol inhaler 2 puff inhalation Q4H PRN (Reason: sob) RF: 0 tramadol 50 mg tablet 50 mg PO Q6H PRN (Reason: Pain) RF: 0 hydrochlorothiazide 12.5 mg tablet 12.5 mg PO BID RF: 0 nifedipine 90 mg tablet extended release 90 mg PO HS RF: 0 Flovent HFA 110 mcg/actuation HFA aerosol inhaler 1 puff inhalation Q12H RF: 0 buspirone 10 mg tablet 10 mg PO BID RF: 0 loratadine 10 mg capsule 10 mg PO DAILY PRN (Reason: Allergy Symptoms) RF: 0 calcium carbonate 500 mg calcium (1,250 mg) tablet 500 mg PO QAM RF: 0 clopidogrel [Plavix] 75 mg tablet 75 mg PO QAM RF: 0 colestipol 1 gram tablet 1 g PO HS RF: 0 ezetimibe [Zetia] 10 mg tablet 10 mg PO HS RF: 0 omega-3 fatty acids [Fish Oil Concentrate] 1,000 mg capsule 1,000 mg PO QAM RF: 0 lansoprazole [Prevacid] 30 mg capsule,delayed release(DR/EC) 30 mg PO QAM RF: 0 losartan [Cozaar] 100 mg tablet 100 mg PO QAM RF: 0 rosuvastatin [Crestor] 5 mg tablet 5 mg PO HS RF: 0 valacyclovir [Valtrex] 500 mg tablet 500 mg PO QAM RF: 0 propranolol 120 mg Capsule,Extended Release 24hr 120 mg PO HS RF: 0 Discharge Orders: Discharge Order (Routine); Ordered 06/28/21 Ordered By: Barbie Fuentes/Other Patient Handouts: Emptying and Cleaning Your ..., Indwelling Urinary Catheter Dc, Discharge Instructions Caring for ... Admission Data Admit Date/Time: 06/27/21 10:48 Attending Provider: Ankur Chin Admit Provider: Ankur Chin Primary Care Provider: Ryan Woods Other Interventions: Discharge Summary Assessment (RN) Last Done: 06/28/21 13:40 Coding Level of Care Code D/C DAY MANAGEMENT <30 MINS Diagnoses Prostate cancer C61
== END 2021-06-28 15:25 | disposition home or self-care (01) | DRG 708 ==
LOC: ASU 05:38 → PACUINP 10:48 → INTOOBSV 10:48 → 3E 13:00
DX: Z79.899 Other long term (current) drug therapy; Z79.02 Long term (current) use of antithrombotics/antiplatelets; J45.909 Unspecified asthma, uncomplicated; C61 Malignant neoplasm of prostate; F41.9 Anxiety disorder, unspecified; Z88.8 Allergy status to other drugs, medicaments and biological substances; K66.0 Peritoneal adhesions (postprocedural) (postinfection); Z86.16 Personal history of COVID-19; I10 Essential (primary) hypertension; Z88.5 Allergy status to narcotic agent; Z87.891 Personal history of nicotine dependence; E78.5 Hyperlipidemia, unspecified; Z20.822 Contact with and (suspected) exposure to COVID-19; K21.9 Gastro-esophageal reflux disease without esophagitis; Z79.51 Long term (current) use of inhaled steroids

== ENCOUNTER 2023-01-22 11:03 | Inpatient (IN) ==
[2023-01-22] MEDS ORDERED: ONDANSETRON INJ 2 MG/ML 2 ML VIAL IV STA (11:39)
[2023-01-22] MEDS ORDERED: AMPICILLIN/SULBACTAM SOD 3,000 MG in 0.9 % SODIUM CHLORIDE 100 ML IV STA (11:39)
[2023-01-22] MEDS ORDERED: KETOROLAC TROMETHAMINE 15 MG/ML VIAL IV STA (11:39)
[2023-01-22] MEDS ORDERED: LACTATED RINGER'S 1,000 ML IV ONE (11:39)
[2023-01-22] MEDS ORDERED: ACETAMINOPHEN 1,000 MG/100 ML VIAL IV STA (11:39)
[2023-01-22] MEDS ORDERED: MoRPHine SULFATE 4 MG/ML 1 ML CARP\\VIAL IV STA ×2 (11:39→13:59)
[2023-01-22] MEDS ORDERED: SODIUM CHLORIDE 0.9% 1000ML 1,000 ML IV SCH (11:45)
--- NOTE | 2023-01-22 12:00 | Emergency Department Note ---
Impression & Plan Left sided abdominal pain, ANURADHA (acute kidney injury), Hypokalemia, Dehydration, Failure of outpatient treatment, Hypomagnesemia ED Provider Note NAME: MARIAN ELAINE AGE: 67 SEX: M : 1955 ARRIVES VIA: Walk-In INFORMANT: [Patient] ED PROVIDER(S): [Jacob Patel MD] CHIEF COMPLAINT: Illness HISTORY OF PRESENT ILLNESS: The patient is a 67-year-old male who has had issues for over 2 weeks. He was initially seen at the [facility] on the first of this month, 14 days ag o. He was told that he may have a sigmoid malignancy per the CT reading. The patient then went to see a GI doctor, Dr. Estevez. A colonoscopy was done, there was no malignancy. There was a area of stricture to the sigmoid colon with inflammation and diverticulosis/diverticulitis. Patient was placed on Cipro and Flagyl. He has been on this medication now for 6 days. Today, the patient saw general surgery, Dr. Sifuentes. He was told that he was failing outpatient therapy and that he would require IV hydration, IV antibiotics and admission. He presents for that purpose. The patient does complain of left-sided abdominal pain. He has no appetite, he has lost over 30 pounds in the last few months. He has not noticed a fever, he is still passing stool rectally but a minimal amount. He has not noticed any urinary complaints. He was told by general surgery that he would eventually require surgical resection of this lesion but that antibiotics and control the inflammation was required first. PMHx/PSHx: See Below SOCIAL HISTORY: See Below. PHYSICAL EXAM: GENERAL: Patient is in no acute distress. HEENT: No acute trauma, normocephalic atraumatic, mucous membranes dry, no nasal congestion. NECK: No stridor, no adenopathy, no meningismus, trachea is midline. LUNGS: Clear to auscultation bilaterally, no wheeze, no rhonchi, breath sounds equal. HEART: Without murmurs gallops or rubs, regular rate and rhythm. ABDOMEN: Soft, moderately tender to the left side of the abdomen, bowel sounds positive, no peritonitis. EXTREMITIES: No cyanosis or edema, full range of motion of all the joints without pain or difficulty, no signs for acute trauma. NEUROLOGIC: Oriented x 3, no acute motor or sensory deficits, no focal weakness. SKIN: No rash, no jaundice, no diaphoresis. DIFFERENTIAL DIAGNOSIS: Diverticulitis, colitis, dehydration, electrolyte imbalance, anemia, renal failure, failed outpatient treatment, among others. EMERGENCY DEPARTMENT COURSE/PROCEDURES: Prior/Outside records reviewed: Colonoscopy report, CT imaging report. MEDICAL DECISION MAKING: There is a mild leukocytosis, this would be consistent with infection or possibly just the stress of his presentation. There was a normal hemoglobin. Platelet count slightly elevated. Renal panel testing showed some acute kidney injury with a creatinine of 1.62. There was an anion gap of 14. Potassium is low at 2.8, sodium is low at 133. Magnesium is low at 1.6. No concerning liver enzyme elevation. COVID test returned negative. On exam, the patient did appear dehydrated. He was tender to palpate the left side of the abdomen, no peritonitis. Patient received IV saline, 1 L. He was given 1 L of lactated Ringer's. He received IV Zofran, IV morphine. A second dose of IV morphine was given. He was given IV potassium and IV magnesium. He was given IV Toradol. He received IV Unasyn. He was given IV Tylenol. The patient has acute kidney injury, dehydration, a low potassium. He is failing outpatient treatment for presumed diverticulitis. Hospitalization is indicated. I did speak with the patient and case management, the on-call hospitalist has been consulted. DISPOSITION: Patient presentation and findings warrant a hospital stay. Past Med/Surg History Medical History Acid reflux Well controlled and stable Anxiety Asthma Uses albuterol PRN inh 2-3xwk on avg Breathing stable Barretts esophagus Stable Carotid stenosis [facility] Vascular Surgery monitoring- Dr. Anderson Chua S/p left CEA - 2012 (<50% stenosis to left ICA) Right ICA 50-69% stenosis per 05/28/2021 carotid doppler Chronic anticoagulation Encounter for pre-operative examination Fatty liver History of COVID-19 09/2020; sob, cough, fever, body aches, chills; fully recovered History of TIA (transient ischemic attack) 2012 per records Hypercholesteremia Hypertension Lumbar stenosis with neurogenic claudication PAD (peripheral artery disease) Prediabetes Prostate cancer S/p prostatectomy 05/2021 Surgical History H/O adenoidectomy History of endarterectomy Thromboendarterectomy , neck Lt 2012 History of esophagogastroduodenoscopy History of lumbar fusion lumbar hemilaminectomy X 2 History of prostate biopsy Hx of cholecystectomy Hx of colonoscopy Hx of tonsillectomy Family History Father , 53yo Heart disease Brother Heart disease Status post cardiac surgery Smoker Mother , 62yo Bowel obstruction Sister Accident Sister Diabetes Sister Stroke Daughter No problems noted. Other No family history of adverse response to anesthesia Social History Smoking Status: Former smoker Tobacco Type: Cigarettes Cigarettes Per Day: 1 PPD x 30 yrs; Second Hand Exposure: Yes; Do You Dip or Chew Tobacco: Yes; Hx Alcohol Use: Yes Alcohol type: beer, wine and hard liquor Alcohol Intake Frequency: 4 or More x per/Week Hx Substance Use: No Preferred Language: Israeli Communication Ability: Effective Visual Impairment: No Limitations Hearing Ability: Normal Account Resolution Expert Required: No Beliefs That Will Affect Care: None marital status: Current Living Situation: Spouse current occupational status: employed 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 Feels Safe at Home: Yes Diet: regular caffeine: No during the past year weight has: remained stable Assistive Devices: None Allergies Allergies Allergy/AdvReac Type Severity Reaction Status Date / Time niacin Allergy upset Verified 01/22/23 12:26 stomach valsartan [From Diovan] Allergy Rash Verified 01/22/23 12:26 hydrocodone AdvReac Mild GI upset Verified 01/22/23 12:26 Nogxzub-KIS-ByT Reductase AdvReac Mild MYALGIAS Verified 01/22/23 12:26 Inhibitor [Aouofza-Ujd-Jcn Reductase Inhibitor] enalapril AdvReac cough Verified 01/22/23 12:26 fenofibrate AdvReac abdominal Verified 01/22/23 12:26 discomfort gemfibrozil AdvReac abdominal Verified 01/22/23 12:26 discomfort Home Meds Home Medications Medication Instructions Recorded Confirmed calcium carbonate 500 mg calcium 500 mg PO QAM 11/27/20 01/22/23 (1,250 mg) tablet clopidogrel 75 mg tablet (Plavix) 75 mg PO QAM 11/27/20 01/22/23 colestipol 1 gram tablet 1 g PO HS 11/27/20 01/22/23 ezetimibe 10 mg tablet (Zetia) 10 mg PO HS 11/27/20 01/22/23 lansoprazole 30 mg capsule,delayed 30 mg PO QAM 11/27/20 01/22/23 release (Prevacid) losartan 100 mg tablet (Cozaar) 100 mg PO QAM 11/27/20 01/22/23 omega-3 fatty acids 1,000 mg 1,000 mg PO QAM 11/27/20 01/22/23 capsule (Fish Oil Concentrate) rosuvastatin 5 mg tablet (Crestor) 5 mg PO HS 11/27/20 01/22/23 valacyclovir 500 mg tablet 500 mg PO QAM 11/27/20 01/22/23 (Valtrex) albuterol sulfate 90 mcg/actuation 2 puff inhalation Q4H PRN sob 04/03/21 01/22/23 aerosol inhaler (Ventolin HFA) buspirone 10 mg tablet 10 mg PO BID 04/03/21 01/22/23 fluticasone propionate 110 1 puff inhalation Q12H 04/03/21 01/22/23 mcg/actuation HFA aerosol inhaler (Flovent HFA) loratadine 10 mg capsule 10 mg PO DAILY PRN Allergy Symptoms 04/03/21 01/22/23 mecobalamin (vitamin B12) 1,000 1,000 mcg PO QAM 04/03/21 01/22/23 mcg chewable tablet nifedipine 90 mg tablet,extended 90 mg PO HS 04/03/21 01/22/23 release tramadol 50 mg tablet 50 mg PO Q6H PRN Pain 04/03/21 01/22/23 propranolol 120 mg 120 mg PO HS 05/08/21 01/22/23 capsule,extended release 24 hr ciprofloxacin HCl 500 mg tablet 500 mg PO BID 01/22/23 01/22/23 folic acid 1 mg tablet 1 mg PO QAM 01/22/23 01/22/23 hydrochlorothiazide 25 mg tablet 25 mg PO QAM 01/22/23 01/22/23 metronidazole 500 mg tablet 500 mg PO BID 01/22/23 01/22/23 Previous Rx's Medication Instructions Recorded docusate sodium 100 mg capsule 100 mg PO BID #60 caps 06/28/21 (Colace) Results & Data (ED) Vital Signs Vital Signs - 24 hr 01/22/23 11:05 01/22/23 11:57 Temperature 36.3 C L Temperature Source Oral Pulse Rate 95 H 82 Respiratory Rate 18 Blood Pressure 99/75 L Blood Pressure Mean 83 Pulse Oximetry 97 Oxygen Delivery Method Room Air Sepsis Recent Fever Within 48 Hours No Sepsis New/Unexplained Change in Mental Status No Sepsis Action Taken by Nursing No Action Required Home Medications Current Medication List: was personally reviewed by me Laboratory Data Attestation: I reviewed the patient's lab results. 01/22/23 11:25 01/22/23 11:25 Lab Results 01/22/23 01/22/23 01/22/23 Range/Units 11:25 11:25 12:48 WBC 12.08 H (4.8-10.8) K/ul RBC 4.88 (4.70-6.10) M/uL Hgb 15.2 (14.0-18.0) g/dl Hct 43.4 (42.0-52.0) % MCV 88.9 (80.0-100.0) fL MCH 31.1 (25.0-34.0) pg MCHC 35.0 (32.0-36.0) g/dL RDW Std Deviation 41.7 (36.4-46.3) fL RDW Coeff of Paulette 12.7 (11.5-14.5) % Plt Count 568 H (130-400) K/uL MPV 9.2 L (9.4-12.4) fL Immature Gran % (Auto) 4.2 % Neut % (Auto) 77.6 % Lymph % (Auto) 4.4 % Benton % (Auto) 12.7 % Eos % (Auto) 0.7 % Baso % (Auto) 0.4 % Neut # (Auto) 9.38 H (1.40-6.50) K/uL Lymph # (Auto) 0.53 L (1.2-3.4) K/uL Benton # (Auto) 1.53 H (0.11-0.59) K/uL Eos # (Auto) 0.08 (0-0.50) K/uL Baso # (Auto) 0.05 (0-0.2) K/uL Immature Gran # (Auto) 0.51 H (0.01-0.20) K/uL Sodium 133 L (136-145) mmol/L Potassium 2.8 L (3.5-5.1) mmol/L Chloride 91 L (98-107) mmol/L Carbon Dioxide 28 (21-32) mmol/L Anion Gap 14 H (3-11) BUN 13 (6-23) mg/dl Creatinine 1.62 H (0.6-1.4) mg/dl Est Cr Clr Drug Dosing Not Reportable Est GFR ( Amer) 50.9 ml/min Est GFR (Non-Af Amer) 43.9 ml/min BUN/Creatinine Ratio 8.0 L (10-20) Glucose 138 H (70-99(Fasting)) mg/dl Calcium 9.3 (8.6-10.3) mg/dl Magnesium 1.6 L (1.7-2.4) mg/dl Total Bilirubin 0.6 (0.2-1.0) mg/dl AST 34 (13-39) U/L ALT 27 (7-52) U/L Alkaline Phosphatase 68 (34-104) U/L Total Protein 8.2 (6.0-8.3) gm/dl Albumin 3.7 (3.4-5.0) gm/dl Globulin 4.5 H (2.5-4.0) gm/dl Albumin/Globulin Ratio 0.8 L (0.9-2) SARS-CoV-2, RNA, NAAT NEGATIVE (NEGATIVE) Administered Medications Discontinued Medications Sodium Chloride (Nss 1000ml) 1,000 mls @ 999 mls/hr IV .Q1H1M MIKE Stop: 01/22/23 12:45 Last Infusion: 01/22/23 12:55 Dose: 0 mls/hr Documented By: Admin: 01/22/23 11:53 Dose: 999 mls/hr Documented By: LB Acetaminophen (Ofirmev) 1,000 mg in 100 mls @ 400 mls/hr IV NOW STA Stop: 01/22/23 11:53 Last Infusion: 01/22/23 12:42 Dose: 0 mls/hr Documented By: Admin: 01/22/23 11:53 Dose: 400 mls/hr Documented By: LB Lactated Ringer's (Lr) 1,000 mls @ 999 mls/hr IV .Q1H1M ONE Stop: 01/22/23 12:39 Last Infusion: 01/22/23 12:54 Dose: 0 mls/hr Documented By: Admin: 01/22/23 11:53 Dose: 999 mls/hr Documented By: LB Ampicillin Sodium/Sulbactam Sodium 3,000 mg/ Sodium Chloride 108 mls @ 200 mls/hr IV NOW STA; Protocol Stop: 01/22/23 12:11 Last Infusion: 01/22/23 14:04 Dose: 0 mls/hr Documented By: Admin: 01/22/23 13:15 Dose: 200 mls/hr Documented By: LB Magnesium Sulfate/Dextrose (Magnesium Sulfate / D5w) 1 gm in 100 mls @ 100 mls/hr IV NOW STA Stop: 01/22/23 13:25 Last Infusion: 01/22/23 13:57 Dose: 0 mls/hr Documented By: Admin: 01/22/23 12:55 Dose: 100 mls/hr Documented By: LB Potassium Chloride (K Simone / Wtr) 10 meq in 100 mls @ 100 mls/hr IV Q1H MIKE Stop: 01/22/23 14:29 Last Infusion: 01/22/23 15:05 Dose: 0 mls/hr Documented By: Admin: 01/22/23 14:05 Dose: 100 mls/hr Documented By: Infusion: 01/22/23 13:57 Dose: 0 mls/hr Documented By: Admin: 01/22/23 12:55 Dose: 100 mls/hr Documented By: LB Ketorolac Tromethamine (Ketorolac Tromethamine 15 Mg/Ml Vial) 15 mg IV NOW STA Stop: 01/22/23 11:40 Last Admin: 01/22/23 11:53 Dose: 15 mg Documented By: LB Morphine Sulfate (Morphine Sulfate 4 Mg/Ml 1 Ml Carp\Vial) 4 mg IV NOW STA Stop: 01/22/23 11:40 Last Admin: 01/22/23 11:52 Dose: 4 mg Documented By: LB Morphine Sulfate (Morphine Sulfate 4 Mg/Ml 1 Ml Carp\Vial) 4 mg IV NOW STA Stop: 01/22/23 14:00 Last Admin: 01/22/23 14:05 Dose: 4 mg Documented By: LB Ondansetron HCl (Ondansetron Inj 2 Mg/Ml 2 Ml Vial) 4 mg IV NOW STA Stop: 01/22/23 11:40 Last Admin: 01/22/23 11:53 Dose: 4 mg Documented By: LB Discharge Plan Visit Data Chief Complaint: Illness Stated Complaint: DIVERTICULITIS, DEHYDRATION ED Provider: Jacob Patel Discharge Problem: Left sided abdominal pain, ANURADHA (acute kidney injury), Hypokalemia, Dehydration, Failure of outpatient treatment, Hypomagnesemia Patient Disposition: Admitted As Inpatient Condition: Fair Forms Stand Alone Forms: [facility] [employer] Prescriptions Prescriptions: No Action mecobalamin (vitamin B12) 1,000 mcg tablet,chewable 1,000 mcg PO QAM albuterol sulfate [Ventolin HFA] 90 mcg/actuation HFA aerosol inhaler 2 puff inhalation Q4H PRN (Reason: sob) tramadol 50 mg tablet 50 mg PO Q6H PRN (Reason: Pain) nifedipine 90 mg tablet extended release 90 mg PO HS Flovent HFA 110 mcg/actuation HFA aerosol inhaler 1 puff inhalation Q12H buspirone 10 mg tablet 10 mg PO BID loratadine 10 mg capsule 10 mg PO DAILY PRN (Reason: Allergy Symptoms) calcium carbonate 500 mg calcium (1,250 mg) tablet 500 mg PO QAM clopidogrel [Plavix] 75 mg tablet 75 mg PO QAM colestipol 1 gram tablet 1 g PO HS ezetimibe [Zetia] 10 mg tablet 10 mg PO HS omega-3 fatty acids [Fish Oil Concentrate] 1,000 mg capsule 1,000 mg PO QAM lansoprazole [Prevacid] 30 mg capsule,delayed release(DR/EC) 30 mg PO QAM losartan [Cozaar] 100 mg tablet 100 mg PO QAM rosuvastatin [Crestor] 5 mg tablet 5 mg PO HS valacyclovir [Valtrex] 500 mg tablet 500 mg PO QAM metronidazole 500 mg tablet 500 mg PO BID ciprofloxacin HCl 500 mg tablet 500 mg PO BID folic acid 1 mg tablet 1 mg PO QAM hydrochlorothiazide 25 mg tablet 25 mg PO QAM propranolol 120 mg Capsule,Extended Release 24hr 120 mg PO HS docusate sodium [Colace] 100 mg capsule 100 mg PO BID Qty: 60 0RF Rx Instructions: Take twice daily for 2 weeks, then as needed for constipation. Referrals Referrals: Ryan Woods PA-C [Primary Care Provider] -
[2023-01-22 12:09] LABS: Basophils # (auto) 0.05 K/uL (0-0.2); Basophils % (auto) 0.4 %; Eosinophils # (auto) 0.08 K/uL (0-0.50); Eosinophils % (auto) 0.7 %; Hematocrit (blood only) 43.4 % (42.0-52.0); Hemoglobin 15.2 g/dl (14.0-18.0); Immature Granulocytes # (auto) 0.51 K/uL (0.01-0.20); Immature Granulocytes % (auto) 4.2 %; Lymphocytes # (auto) 0.53 K/uL (1.2-3.4); Lymphocytes % (auto) 4.4 %; Mean Corpuscular Hemoglobin 31.1 pg (25.0-34.0); Mean Corpuscular Volume 88.9 fL (80.0-100.0); Mean Platelet Volume 9.2 fL (9.4-12.4); Monocytes # (auto) 1.53 K/uL (0.11-0.59); Monocytes % (auto) 12.7 %; Neutrophils # (auto) 9.38 K/uL (1.40-6.50); Neutrophils % (auto) 77.6 %; Platelet Count 568 K/uL (130-400); RDW Coefficient of Variation 12.7 % (11.5-14.5); RDW Standard Deviation 41.7 fL (36.4-46.3); Red Blood Count 4.88 M/uL (4.70-6.10); White Blood Count 12.08 K/ul (4.8-10.8)
[2023-01-22 12:18] LABS: Alanine Aminotransferase 27 U/L (7-52); Albumin Globulin Ratio 0.8 (0.9-2); Albumin Level 3.7 gm/dl (3.4-5.0); Alkaline Phosphatase 68 U/L (34-104); Anion Gap 14 (3-11); Aspartate Aminotransferase 34 U/L (13-39); Bilirubin,Total 0.6 mg/dl (0.2-1.0); Blood Urea Nitrogen 13 mg/dl (6-23); Calcium 9.3 mg/dl (8.6-10.3); Carbon Dioxide 28 mmol/L (21-32); Chloride 91 mmol/L (98-107); Est GFR (African American) 50.9 ml/min; Est GFR (Non-African American) 43.9 ml/min; Globulin 4.5 gm/dl (2.5-4.0); Glucose 138 mg/dl (70-99(Fasting)); Magnesium 1.6 mg/dl (1.7-2.4); Potassium 2.8 mmol/L (3.5-5.1); Sodium 133 mmol/L (136-145); Total Protein 8.2 gm/dl (6.0-8.3)
[2023-01-22] MEDS ORDERED: MAGNESIUM SULFATE / D5W 1 GM/100 ML BAG IV STA (12:26)
[2023-01-22] MEDS: POTASSIUM CHLORIDE / WTR 10 MEQ/100 ML PLCT IV SCH ×2 (12:55→14:05)
[2023-01-22] MEDS ORDERED: ENOXAPARIN INJ 40 MG/0.4 ML SYR SQ SCH (13:00)
--- NOTE | 2023-01-22 15:36 | Surgery Consultation ---
Date of Consultation January 22, 2023 Assessment & Plan (1) Acute radiation colitis: (2) Diverticulitis: Plan 67-year-old gentleman appears to have combination of acute radiation colitis versus severe diverticulitis. He just finished radiation therapy 3 weeks ago. He is on Coumadin. He will be admitted to the hospital. I recommend fluid resuscitation and IV antibioticsZosyn. He may benefit from TPN as he has not been able to tolerate food for a few weeks according to him and his . He is currently passing flatus and having liquid stools, so he is not obstructed. Coumadin will need to be held for possible surgical intervention. I recommend repeating his CT scan for reevaluation of the phlegmon in his sigmoid colon. certainly he is high risk for surgery, and we will try to avoid surgery at this time if possible. If he were to need surgery, he would require a sigmoid colectomy with end colostomy, Melchor's procedure. We will order the CT scan, and follow along while he is in the hospital. History of Present Illness Reason for Consultation: sigmoid stricture/radiation colitis/diverticulitis Requesting Physician: ED Physician Attending Physician: ED Physician History of Present Illness 67-year-old gentleman presents with a 2-month history of abdominal pain, weight loss, diarrhea. He has a history of prostate cancer status post prostatectomy 2 years ago. He recently completed a full course of pelvic radiation for the prostate cancer. This was completed 12/30/2022. On January 08, he was seen in the emergency department at [facility] with severe abdominal pain. At that time he was noted to have a 12 cm mass/phlegmon of his sigmoid colon. There is no evidence of abscess at that time. The read was suggestive of sigmoid colon cancer. He had undergone a colonoscopy in October 2022 which was negative except for severe diverticulosis in the sigmoid colon. He was sent home from the emergency department to follow-up with an outpatient sigmoidoscopy/colonoscopy. This was done 4 days ago. Severe inflammation and ulceration was found in the sigmoid colon. The sigmoid colon could not be traversed with the colonoscope. He was placed on oral antibiotics and sent to general surgery. I saw him in my office this morning. He has lost 30 to 40 pounds over the last few months. He has not been able to eat. His states that he fell the other night due to dizziness. He does state that his abdomen has felt slightly better with the oral antibiotics, but no significant change. He denies fevers or chills. Allergies Allergy/AdvReac Type Severity Reaction Status Date / Time niacin Allergy upset Verified 01/22/23 12:26 stomach valsartan [From Diovan] Allergy Rash Verified 01/22/23 12:26 hydrocodone AdvReac Mild GI upset Verified 01/22/23 12:26 Oiwpuef-WHF-NiR Reductase AdvReac Mild MYALGIAS Verified 01/22/23 12:26 Inhibitor [Vcsxwxb-Qir-Slm Reductase Inhibitor] enalapril AdvReac cough Verified 01/22/23 12:26 fenofibrate AdvReac abdominal Verified 01/22/23 12:26 discomfort gemfibrozil AdvReac abdominal Verified 01/22/23 12:26 discomfort Home Medications Medication Instructions Recorded Confirmed Type calcium carbonate 500 mg calcium 500 mg PO QAM 11/27/20 01/22/23 History (1,250 mg) tablet clopidogrel 75 mg tablet (Plavix) 75 mg PO QAM 11/27/20 01/22/23 History colestipol 1 gram tablet 1 g PO HS 11/27/20 01/22/23 History ezetimibe 10 mg tablet (Zetia) 10 mg PO HS 11/27/20 01/22/23 History lansoprazole 30 mg capsule,delayed 30 mg PO QAM 11/27/20 01/22/23 History release (Prevacid) losartan 100 mg tablet (Cozaar) 100 mg PO QAM 11/27/20 01/22/23 History omega-3 fatty acids 1,000 mg 1,000 mg PO QAM 11/27/20 01/22/23 History capsule (Fish Oil Concentrate) rosuvastatin 5 mg tablet (Crestor) 5 mg PO HS 11/27/20 01/22/23 History valacyclovir 500 mg tablet 500 mg PO QAM 11/27/20 01/22/23 History (Valtrex) albuterol sulfate 90 mcg/actuation 2 puff inhalation Q4H PRN sob 04/03/21 01/22/23 History aerosol inhaler (Ventolin HFA) buspirone 10 mg tablet 10 mg PO BID 04/03/21 01/22/23 History fluticasone propionate 110 1 puff inhalation Q12H 04/03/21 01/22/23 History mcg/actuation HFA aerosol inhaler (Flovent HFA) loratadine 10 mg capsule 10 mg PO DAILY PRN Allergy Symptoms 04/03/21 01/22/23 History mecobalamin (vitamin B12) 1,000 1,000 mcg PO QAM 04/03/21 01/22/23 History mcg chewable tablet nifedipine 90 mg tablet,extended 90 mg PO HS 04/03/21 01/22/23 History release tramadol 50 mg tablet 50 mg PO Q6H PRN Pain 04/03/21 01/22/23 History propranolol 120 mg 120 mg PO HS 05/08/21 01/22/23 History capsule,extended release 24 hr docusate sodium 100 mg capsule 100 mg PO BID #60 caps 06/28/21 01/22/23 Rx (Colace) ciprofloxacin HCl 500 mg tablet 500 mg PO BID 01/22/23 01/22/23 History folic acid 1 mg tablet 1 mg PO QAM 01/22/23 01/22/23 History hydrochlorothiazide 25 mg tablet 25 mg PO QAM 01/22/23 01/22/23 History metronidazole 500 mg tablet 500 mg PO BID 01/22/23 01/22/23 History Patient History Medical History Acid reflux Well controlled and stable Anxiety Asthma Uses albuterol PRN inh 2-3xwk on avg Breathing stable Barretts esophagus Stable Carotid stenosis [facility] Vascular Surgery monitoring- Dr. Anderson Chua S/p left CEA - 2012 (<50% stenosis to left ICA) Right ICA 50-69% stenosis per 05/28/2021 carotid doppler Chronic anticoagulation Encounter for pre-operative examination Fatty liver History of COVID-19 09/2020; sob, cough, fever, body aches, chills; fully recovered History of TIA (transient ischemic attack) 2012 per records Hypercholesteremia Hypertension Lumbar stenosis with neurogenic claudication PAD (peripheral artery disease) Prediabetes Prostate cancer S/p prostatectomy 05/2021 Surgical History H/O adenoidectomy History of endarterectomy Thromboendarterectomy , neck Lt 2012 History of esophagogastroduodenoscopy History of lumbar fusion lumbar hemilaminectomy X 2 History of prostate biopsy Hx of cholecystectomy Hx of colonoscopy Hx of tonsillectomy Family History Father , 53yo Heart disease Brother Heart disease Status post cardiac surgery Smoker Mother , 62yo Bowel obstruction Sister Accident Sister Diabetes Sister Stroke Daughter No problems noted. Other No family history of adverse response to anesthesia Social History Smoking Status: Former smoker Tobacco Type: Cigarettes Cigarettes Per Day: 1 PPD x 30 yrs; Second Hand Exposure: Yes; Do You Dip or Chew Tobacco: Yes; Hx Alcohol Use: Yes Alcohol type: beer, wine and hard liquor Alcohol Intake Frequency: 4 or More x per/Week Hx Substance Use: No Preferred Language: Georgian Communication Ability: Effective Visual Impairment: No Limitations Hearing Ability: Normal Substation Electrician Supervisor Required: No Beliefs That Will Affect Care: None marital status: Current Living Situation: Spouse current occupational status: employed 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 Feels Safe at Home: Yes Diet: regular caffeine: No during the past year weight has: remained stable Assistive Devices: None Review of Systems Review of Systems: All systems reviewed & are unremarkable except as noted in HPI & below Physical Exam Constitutional: well developed and + ill appearing; + not appropriately hydrated Eyes: PERRL, conjunctivae normal, anicteric sclerae Neck: trachea midline, no thyromegaly Respiratory: normal respiratory effort, lungs clear to auscultation Cardiovascular: RRR, no murmur, no edema Gastrointestinal (Abdomen): Inspection/Auscultation: abdomen normal to inspection and + abdomen distended ( Mild) Percussion/Palpation: + abdomen tender ( left lower quadrant, suprapubic region) and abdomen soft; no guarding and abdomen not rigid Skin: no rashes, warm and dry Psychiatric: A+Ox3, euthymic affect Results & Data Vital Signs (Past 12 Hours) Vital Signs Temp Pulse Resp BP Pulse Ox O2 Del Method 01/22/23 11:57 82 01/22/23 11:05 36.3 C L 95 H 18 99/75 L 97 Room Air Laboratory Results 01/22/23 01/22/23 01/22/23 Range/Units 12:48 11:25 11:25 WBC 12.08 H (4.8-10.8) K/ul RBC 4.88 (4.70-6.10) M/uL Hgb 15.2 (14.0-18.0) g/dl Hct 43.4 (42.0-52.0) % MCV 88.9 (80.0-100.0) fL MCH 31.1 (25.0-34.0) pg MCHC 35.0 (32.0-36.0) g/dL RDW Std Deviation 41.7 (36.4-46.3) fL RDW Coeff of Paulette 12.7 (11.5-14.5) % Plt Count 568 H (130-400) K/uL MPV 9.2 L (9.4-12.4) fL Immature Gran % (Auto) 4.2 % Neut % (Auto) 77.6 % Lymph % (Auto) 4.4 % [place] % (Auto) 12.7 % Eos % (Auto) 0.7 % Baso % (Auto) 0.4 % Neut # (Auto) 9.38 H (1.40-6.50) K/uL Lymph # (Auto) 0.53 L (1.2-3.4) K/uL Ceiba # (Auto) 1.53 H (0.11-0.59) K/uL Eos # (Auto) 0.08 (0-0.50) K/uL Baso # (Auto) 0.05 (0-0.2) K/uL Immature Gran # (Auto) 0.51 H (0.01-0.20) K/uL Sodium 133 L (136-145) mmol/L Potassium 2.8 L (3.5-5.1) mmol/L Chloride 91 L (98-107) mmol/L Carbon Dioxide 28 (21-32) mmol/L Anion Gap 14 H (3-11) BUN 13 (6-23) mg/dl Creatinine 1.62 H (0.6-1.4) mg/dl Est Cr Clr Drug Dosing Not Reportable Est GFR ( Amer) 50.9 ml/min Est GFR (Non-Af Amer) 43.9 ml/min BUN/Creatinine Ratio 8.0 L (10-20) Glucose 138 H (70-99(Fasting)) mg/dl Calcium 9.3 (8.6-10.3) mg/dl Magnesium 1.6 L (1.7-2.4) mg/dl Total Bilirubin 0.6 (0.2-1.0) mg/dl AST 34 (13-39) U/L ALT 27 (7-52) U/L Alkaline Phosphatase 68 (34-104) U/L Total Protein 8.2 (6.0-8.3) gm/dl Albumin 3.7 (3.4-5.0) gm/dl Globulin 4.5 H (2.5-4.0) gm/dl Albumin/Globulin Ratio 0.8 L (0.9-2) SARS-CoV-2, RNA, NAAT NEGATIVE (NEGATIVE)
--- NOTE | 2023-01-22 15:50 | History & Physical Report ---
Date of Service January 22, 2023 Assessment & Plan (1) Left sided abdominal pain: (2) ANURADHA (acute kidney injury): (3) Hypokalemia: (4) Failure of outpatient treatment: (5) Hypomagnesemia: (6) Diverticulitis: (7) Acute radiation colitis: (8) Prostate cancer: (9) HLD (hyperlipidemia): (10) DDD (degenerative disc disease), cervical: (11) Chronic alcohol use: Plan This is a 67yoM with a PMhx of prostate cancer s/p radical prostatectomy with pelvic lymph node dissection in 2020 (recently completed radiation treatments on December 30), HTN, HLD, Anxiety, Asthma, DDD, GERD, chronic alcohol use and Carotid stenosis s/p endarterectomy. He presented from his general surgeon's off ice for hospital admission for suspected chronic diverticulitis vs. occult mass or radiation related changes of the sigmoid colon. EPIC CT (01/08/23) and colonoscopy (01/16/23) results reviewed. 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 Pt had a colonoscopy 3 months prior that did not show any abnormalities. Colonoscopy was repeated by GI on 01/16 with biopsy of the concerning area. The repeat colonoscopy did not show a mass but showed severe inflammation and stricture. The c- scope could not pass through the area of concern, though the pt was passing gas and had been having bowel movements. GI's differential included "chronic diverticulitis, post radiation changes or occult mass". Biopsy results did not show dysplasia but showed a "hyperplastic colonic mucosa with mild inflammation". Pt was treated with PO cipro and flagyl, states he completed 6 days of it. He had his General surgery visit today for consideration of surgically removing the affected colon, and was advised to go to the hospital for IV antibiotics after being deemed to have failed outpatient treatment. Received a dose of Unasyn in the ED, will continue with IV Zosyn. IV fluids, NPO except for medications, IV zofran prn for nausea Tylenol for mild pain, continue home tramadol as needed for moderate pain, IV morphine ordered for severe pain Consult GI and General surgery Hypokalemia Potassium 2.8 on admission Received 2 bags of potassium 10mEq in the ED PO KCl 40mEq ordered NSS w/KCl 20meQ ordered @80 Repeat BMP in AM Hypomagnesemia Mag of 1.7 Repleted in the ED Repeat Mag level ordered for AM ANURADHA Cr elevated at 1.6, was 1.2 about a year ago NSS w/KCl as above Hold home losartan and HCTZ Continue to monitor Prostate cancer- follows with urology, radiation oncology. HTN- on losartan, propanolol, nifedipine and hctz. BP on softer side. Holding losartan and HCTZ as noted above. HLD-continue home statin Asthma-continue home inhalers Anxiety- continue home buspar DDD- continue home tramadol prn Chronic alcohol use- continue home folate and thiamine. Pt states his last drink was a week ago, states he does not drink everyday anymore. Denies withdrawal symptoms if he is without alcohol for the extended periods he notes. GERD- continue home ppi Carotid stenosis- continue home plavix. Consider discontinuing based on the need for surgery. Diet: NPO DVT prophylaxis: Lovenox SQ CODE STATUS: Full code Dispo: Med/Surg History of Present Illness Chief Complaint: abdominal pain Primary Care Provider: Ryan Woods PA-C Pt presents with his . History obtained from both. They state that he completed radiation on December 30, and developed chronic abdominal pain with BRBPR. Presented to [place] [facility] and had a CT abd/pelvis done on 01/08 that showed a possible 12cm sigmoid colon mass. The CT was read as "probable sigmoid carcinoma with metastatic lymphadenopathy". They note that they did not believe that as he had a colonoscopy done 3 months prior that did not show any abnormalities. He subsequently had a repeat colonoscopy that was repeated by GI on 01/16 with biopsy of the concerning area. The colonoscopy did not show a mass but showed severe inflammation and stricture. The c-scope could not pass through the area of concern, though the pt was passing gas and had been having bowel movements. They state he was prescribed cipro and flagyl which he took with no issues but was seen by General Surgery today in the outpatient setting. They state they were told that he failed outpt therapy and were advised to present to the ED for admission for IV antibiotics. Allergies Allergy/AdvReac Type Severity Reaction Status Date / Time niacin Allergy upset Verified 01/22/23 12:26 stomach valsartan [From [facility]] Allergy Rash Verified 01/22/23 12:26 hydrocodone AdvReac Mild GI upset Verified 01/22/23 12:26 Pobizmv-XVE-ZpI Reductase AdvReac Mild MYALGIAS Verified 01/22/23 12:26 Inhibitor [Kobrdid-Nfm-Dfa Reductase Inhibitor] enalapril AdvReac cough Verified 01/22/23 12:26 fenofibrate AdvReac abdominal Verified 01/22/23 12:26 discomfort gemfibrozil AdvReac abdominal Verified 01/22/23 12:26 discomfort Home Medications Medication Instructions Recorded Confirmed Type calcium carbonate 500 mg calcium 500 mg PO QAM 11/27/20 01/22/23 History (1,250 mg) tablet clopidogrel 75 mg tablet (Plavix) 75 mg PO QAM 11/27/20 01/22/23 History colestipol 1 gram tablet 1 g PO HS 11/27/20 01/22/23 History ezetimibe 10 mg tablet (Zetia) 10 mg PO HS 11/27/20 01/22/23 History lansoprazole 30 mg capsule,delayed 30 mg PO QAM 11/27/20 01/22/23 History release (Prevacid) losartan 100 mg tablet (Cozaar) 100 mg PO QAM 11/27/20 01/22/23 History omega-3 fatty acids 1,000 mg 1,000 mg PO QAM 11/27/20 01/22/23 History capsule (Fish Oil Concentrate) rosuvastatin 5 mg tablet (Crestor) 5 mg PO HS 11/27/20 01/22/23 History valacyclovir 500 mg tablet 500 mg PO QAM 11/27/20 01/22/23 History (Valtrex) albuterol sulfate 90 mcg/actuation 2 puff inhalation Q4H PRN sob 04/03/21 01/22/23 History aerosol inhaler (Ventolin HFA) buspirone 10 mg tablet 10 mg PO BID 04/03/21 01/22/23 History fluticasone propionate 110 1 puff inhalation Q12H 04/03/21 01/22/23 History mcg/actuation HFA aerosol inhaler (Flovent HFA) loratadine 10 mg capsule 10 mg PO DAILY PRN Allergy Symptoms 04/03/21 01/22/23 History mecobalamin (vitamin B12) 1,000 1,000 mcg PO QAM 04/03/21 01/22/23 History mcg chewable tablet nifedipine 90 mg tablet,extended 90 mg PO HS 04/03/21 01/22/23 History release tramadol 50 mg tablet 50 mg PO Q6H PRN Pain 04/03/21 01/22/23 History propranolol 120 mg 120 mg PO HS 05/08/21 01/22/23 History capsule,extended release 24 hr docusate sodium 100 mg capsule 100 mg PO BID #60 caps 06/28/21 01/22/23 Rx (Colace) ciprofloxacin HCl 500 mg tablet 500 mg PO BID 01/22/23 01/22/23 History folic acid 1 mg tablet 1 mg PO QAM 01/22/23 01/22/23 History hydrochlorothiazide 25 mg tablet 25 mg PO QAM 01/22/23 01/22/23 History metronidazole 500 mg tablet 500 mg PO BID 01/22/23 01/22/23 History Past Med/Surg History Medical History Acid reflux Well controlled and stable Anxiety Asthma Uses albuterol PRN inh 2-3xwk on avg Breathing stable Barretts esophagus Stable Carotid stenosis [facility] Vascular Surgery monitoring- Dr. Anderson Chua S/p left CEA - 2012 (<50% stenosis to left ICA) Right ICA 50-69% stenosis per 05/28/2021 carotid doppler Chronic anticoagulation Encounter for pre-operative examination Fatty liver History of COVID-19 09/2020; sob, cough, fever, body aches, chills; fully recovered History of TIA (transient ischemic attack) 2012 per records Hypercholesteremia Hypertension Lumbar stenosis with neurogenic claudication PAD (peripheral artery disease) Prediabetes Prostate cancer S/p prostatectomy 05/2021 Surgical History H/O adenoidectomy History of endarterectomy Thromboendarterectomy , neck Lt 2012 History of esophagogastroduodenoscopy History of lumbar fusion lumbar hemilaminectomy X 2 History of prostate biopsy Hx of cholecystectomy Hx of colonoscopy Hx of tonsillectomy Family History Father , 53yo Heart disease Brother Heart disease Status post cardiac surgery Smoker Mother , 62yo Bowel obstruction Sister Accident Sister Diabetes Sister Stroke Daughter No problems noted. Other No family history of adverse response to anesthesia Social History Smoking Status: Former smoker Tobacco Type: Cigarettes Cigarettes Per Day: 1 PPD x 30 yrs; Second Hand Exposure: Yes; Do You Dip or Chew Tobacco: Yes; Hx Alcohol Use: Yes Alcohol type: beer, wine and hard liquor Alcohol Intake Frequency: 4 or More x per/Week Hx Substance Use: No Preferred Language: German Communication Ability: Effective Visual Impairment: No Limitations Hearing Ability: Normal Unit Clerk Required: No Beliefs That Will Affect Care: None marital status: Current Living Situation: Spouse current occupational status: employed 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 No acute distress, laying in bed Skin: No noted rashes or bruises Psych: Appropriate mood and affect Neuro: No gross deficits HEENT: NC/AT CV: RRR, Normal s1, s2. No murmurs appreciated Resp: Breath sounds clear bilaterally, no increased effort of breathing. Abdomen: Soft, tender diffusely but especially in upper quadrants, nondistended. Extremities: No edema in lower extremities bilaterally. Results & Data Results & Data Vital Signs (Past 12 Hours) Vital Signs Temp Pulse Resp BP Pulse Ox O2 Del Method 01/22/23 11:57 82 01/22/23 11:05 36.3 C L 95 H 18 99/75 L 97 Room Air Code Status & VTE Plan VTE Prophylaxis Plan VTE Prophylaxis will be ordered: Yes
[2023-01-22] MEDS ORDERED: ALBUTEROL HFA 8 GM INHALER INH PRN (16:55)
[2023-01-22] MEDS ORDERED: ONDANSETRON INJ 2 MG/ML 2 ML VIAL IV PRN (16:55)
[2023-01-22] MEDS: ACETAMINOPHEN 500 MG TAB PO SCH (18:08)
[2023-01-22] MEDS ORDERED: POTASSIUM CHLORIDE CRTAB 20 MEQ TABCR PO STA (18:10)
[2023-01-22] MEDS: NSS + 20MEQ KCL 20 MEQ/1,000 ML BAG IV SCH (18:29)
[2023-01-22] MEDS: PIPERACILLIN/TAZOBACTAM 4.5 GM in DEXTROSE 5% 100 ML IV SCH (18:51)
[2023-01-22] MEDS: MoRPHine SULFATE 2 MG/ML CARP IV PRN (19:39)
[2023-01-22] MEDS: ENOXAPARIN INJ 40 MG/0.4 ML SYR SQ SCH (19:41)
[2023-01-22] MEDS ORDERED: OPTIRAY 320 100ml IV ONE (19:56)
[2023-01-22] MEDS: busPIRone 5 MG TAB PO SCH (20:20)
[2023-01-22] MEDS: COLESTIPOL HCL 1 GM TAB PO SCH (20:20)
[2023-01-22] MEDS: ROSUVASTATIN CALCIUM 5 MG TAB PO SCH (20:20)
[2023-01-22] MEDS: DOCUSATE SODIUM 100 MG CAP PO SCH (20:20)
[2023-01-22] MEDS: PROPRANOLOL HCL 60 MG LA CAP PO SCH (20:20)
[2023-01-22] MEDS: EZETIMIBE 10 MG TABLET PO SCH (20:20)
--- NOTE | 2023-01-22 21:38 | CT Scan Report ---
Exam(s): CT ABDOMEN + PELVIS With Contrast Oral - High Density Amt: gastrografin 30 ml, IV Amt: 92 ml optiray 320 EXAM: CT Abdomen and Pelvis With Intravenous Contrast CLINICAL HISTORY: Reason for exam: diverticulitis/radiation colitis,. TECHNIQUE: Axial computed tomography images of the abdomen and pelvis with intravenous contrast. Automated exposure control was utilized for the study. A dose lowering technique was utilized adhering to the principles of ALARA. CONTRAST: Patient received gastrografin 30 ml of Oral - High Density and 92 ml optiray 320 of IV contrast COMPARISON: No relevant prior studies available. FINDINGS: Lung bases: Unremarkable. No mass. No consolidation. ABDOMEN: Liver: Unremarkable. No mass. Gallbladder and bile ducts: Cholecystectomy. No ductal dilation. Pancreas: Unremarkable. No mass. No ductal dilation. Spleen: Unremarkable. No splenomegaly. Adrenals: Unremarkable. No mass. Kidneys and ureters: Bilateral renal cysts. No hydronephrosis. Stomach and bowel: Severe wall thickening of the sigmoid colon, which measures up to 2.6 cm in thickness. Mild pericolonic fat stranding. Correlate for colitis. Note, underlying colon neoplasm cannot be excluded. Surgical evaluation recommended. Diverticulosis, without focal peridiverticular inflammation. No obstruction. PELVIS: Appendix: No findings to suggest acute appendicitis. Bladder: Unremarkable. No mass. Reproductive: Unremarkable as visualized. ABDOMEN and PELVIS: Intraperitoneal space: Unremarkable. No free air. No significant fluid collection. Bones/joints: Degenerative changes of the spine. Posterior lumbar fusion L4-S1. No acute fracture. No dislocation. Soft tissues: Unremarkable. Vasculature: Atherosclerotic changes of the aorta. No abdominal aortic aneurysm. Lymph nodes: Unremarkable. No enlarged lymph nodes. IMPRESSION: Severe wall thickening of the sigmoid colon, which measures up to 2.6 cm in thickness. Mild pericolonic fat stranding. Correlate for colitis. Note, underlying colon neoplasm cannot be excluded. Surgical evaluation recommended. Electronically signed by: Jonas Cuellar MD 01/22/23 21:36 PM
[2023-01-22] MEDS ORDERED: traZODone HCL 50 MG TAB PO ONE (21:51)
[2023-01-23] MEDS: ACETAMINOPHEN 500 MG TAB PO SCH ×3 (00:17→18:16)
[2023-01-23] MEDS: PIPERACILLIN/TAZOBACTAM 4.5 GM in DEXTROSE 5% 100 ML IV SCH ×3 (02:19→18:17)
[2023-01-23 06:37] LABS: Basophils # (auto) 0.03 K/uL (0-0.2); Basophils % (auto) 0.5 %; Eosinophils # (auto) 0.27 K/uL (0-0.50); Eosinophils % (auto) 4.5 %; Hematocrit (blood only) 29.9 % (42.0-52.0); Hemoglobin 10.2 g/dl (14.0-18.0); Immature Granulocytes # (auto) 0.19 K/uL (0.01-0.20); Immature Granulocytes % (auto) 3.2 %; Lymphocytes # (auto) 0.22 K/uL (1.2-3.4); Lymphocytes % (auto) 3.7 %; Mean Corpuscular Hemoglobin 30.6 pg (25.0-34.0); Mean Corpuscular Hgb Conc 34.1 g/dL (32.0-36.0); Mean Corpuscular Volume 89.8 fL (80.0-100.0); Mean Platelet Volume 9.2 fL (9.4-12.4); Monocytes # (auto) 1.02 K/uL (0.11-0.59); Neutrophils # (auto) 4.27 K/uL (1.40-6.50); Neutrophils % (auto) 71.1 %; Platelet Count 377 K/uL (130-400); RDW Coefficient of Variation 12.8 % (11.5-14.5); RDW Standard Deviation 41.9 fL (36.4-46.3); Red Blood Count 3.33 M/uL (4.70-6.10)
[2023-01-23 06:39] LABS: Albumin Globulin Ratio 0.9 (0.9-2); Albumin Level 2.5 gm/dl (3.4-5.0); BUN Creatinine Ratio 8.1 (10-20); Bilirubin,Total 0.6 mg/dl (0.2-1.0); Calcium 7.8 mg/dl (8.6-10.3); Creatinine Clr Calc Pharmacy 56.4 ml/min; Est GFR (African American) 56.7 ml/min; Globulin 2.8 gm/dl (2.5-4.0); Magnesium 1.7 mg/dl (1.7-2.4); Potassium 2.7 mmol/L (3.5-5.1); Total Protein 5.3 gm/dl (6.0-8.3)
[2023-01-23] MEDS ORDERED: POTASSIUM CHLORIDE CRTAB 20 MEQ TABCR PO STA (07:02)
[2023-01-23] MEDS ORDERED: TPN/PPN CONSULT PHARMACY PRN (07:13)
[2023-01-23] MEDS: NSS + 20MEQ KCL 20 MEQ/1,000 ML BAG IV SCH (07:26)
[2023-01-23] MEDS: MoRPHine SULFATE 2 MG/ML CARP IV PRN ×2 (07:48→22:00)
[2023-01-23 08:18] LABS: Phosphorus 3.3 mg/dl (2.5-4.9)
--- NOTE | 2023-01-23 08:26 | Gastrointestinal Consultation ---
Date of Consultation January 23, 2023 Assessment & Plan (1) Left sided abdominal pain: Plan 67 year old male with history of T2DM, dyslipidemia, asthma, HTN, PAD, carotid stenosis, TIA, GERD, fatty liver, obesity, anticoagulated on coumadin, prostate CA s/p radiation and others below admitted w/ abd pain x 1 month and dehydration. Recent colonoscopy w/ severe inflammation and stricture of the sigmoid colon, referred to general surgery for management. Radiation colitis vs diverticultis vs other Agree with IV ABX Defer diet to general surgery Primary management per general surgery No indication for endoscopic evaluation Thank you for allowing us to participate in the care of this patient. Please call with any acute changes, questions or concerns. Please see addendum below with additional recommendation from my supervising physician. Supervising Physician Co-Signing Physician Notes Attending attestation I have seen, examined this patient, and agree with the findings and above by our mid-level provider YOHAN Reilly, with the following additions: Patient presented for colonoscopy last week, during that examination he was found to have deep ulcerations of the sigmoid colon that could not safely pass through, biopsies revealed inflammation. Placed on oral abx and sent home, doing well early this week wtih passing of air and loose stool. Sent back to hospital from Surgery clinic for IV abx Doing better today, agree with conservative care with IV abx, but will need to determine if surgery will be needed on this admission based upon clinical course Call with questions History of Present Illness Reason for Consultation: diverticulitis Requesting Physician: Irena Attending Physician: Alex Osborn MD History of Present Illness 67 year old male with history of T2DM, dyslipidemia, asthma, HTN, PAD, carotid stenosis, TIA, GERD, fatty liver, obesity, anticoagulated on coumadin, prostate CA s/p radiation and others below admitted w/ abd pain and dehydration - GI asked to evaluate for abnormal imaging, ? diverticulitis. Notes chronic, unchanged LLQ pain x 1 month. Associated with decreased appetite, nausea and weight loss. Notes loose stools, but no black or bloody stools. Was seen by general surgery yesterday - referred to the ED. CTAP 01/2023: Severe wall thickening of the sigmoid colon, which measures up to 2.6cm in thickness. Mild pericolonic fat stranding. Correlate for colitis.Note, underlying colon neoplasm cannot be excluded. Surgical evaluationrecommended. 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 Extensive diverticulosis in the sigmoid colon with wall thickening. This is similar in appearance to prostate MRI performed in February 2021. Recommend correlation with prior imaging and colonoscopy history to exclude malignancy. Bx 2022: Superficial hyperplastic colonic mucosa with mild inflammation; no evidence of dysplasia identified in material examined. Colonoscopy 2022: Preparation of the colon was poor. - Stricture in the distal sigmoid colon. Biopsied. Colonoscopy 2022: Severe diverticulosis in the sigmoid colon and in the descending colon. - Three 8 to 10 mm polyps in the descending colon, removed with a hot snare. Resected and retrieved. - Internal hemorrhoids. - The examination was otherwise normal. Allergies Allergy/AdvReac Type Severity Reaction Status Date / Time niacin Allergy upset Verified 01/22/23 12:26 stomach valsartan [From Diovan] Allergy Rash Verified 01/22/23 12:26 hydrocodone AdvReac Mild GI upset Verified 01/22/23 12:26 [id number] Reductase AdvReac Mild MYALGIAS Verified 01/22/23 12:26 Inhibitor [Pwkipbn-Xlc-Xmy Reductase Inhibitor] enalapril AdvReac cough Verified 01/22/23 12:26 fenofibrate AdvReac abdominal Verified 01/22/23 12:26 discomfort gemfibrozil AdvReac abdominal Verified 01/22/23 12:26 discomfort Home Medications Medication Instructions Recorded Confirmed Type calcium carbonate 500 mg calcium 500 mg PO QAM 11/27/20 01/22/23 History (1,250 mg) tablet clopidogrel 75 mg tablet (Plavix) 75 mg PO QAM 11/27/20 01/22/23 History colestipol 1 gram tablet 1 g PO HS 11/27/20 01/22/23 History ezetimibe 10 mg tablet (Zetia) 10 mg PO HS 11/27/20 01/22/23 History lansoprazole 30 mg capsule,delayed 30 mg PO QAM 11/27/20 01/22/23 History release (Prevacid) losartan 100 mg tablet (Cozaar) 100 mg PO QAM 11/27/20 01/22/23 History omega-3 fatty acids 1,000 mg 1,000 mg PO QAM 11/27/20 01/22/23 History capsule (Fish Oil Concentrate) rosuvastatin 5 mg tablet (Crestor) 5 mg PO HS 11/27/20 01/22/23 History valacyclovir 500 mg tablet 500 mg PO QAM 11/27/20 01/22/23 History (Valtrex) albuterol sulfate 90 mcg/actuation 2 puff inhalation Q4H PRN sob 04/03/21 0 01/22/23 History aerosol inhaler (Ventolin HFA) buspirone 10 mg tablet 10 mg PO BID 04/03/21 01/22/23 History fluticasone propionate 110 1 puff inhalation Q12H 04/03/21 01/22/23 History mcg/actuation HFA aerosol inhaler (Flovent HFA) loratadine 10 mg capsule 10 mg PO DAILY PRN Allergy Symptoms 04/03/21 01/22/23 History mecobalamin (vitamin B12) 1,000 1,000 mcg PO QAM 04/03/21 01/22/23 History mcg chewable tablet nifedipine 90 mg tablet,extended 90 mg PO HS 04/03/21 01/22/23 History release tramadol 50 mg tablet 50 mg PO Q6H PRN Pain 04/03/21 01/22/23 History propranolol 120 mg 120 mg PO HS 05/08/21 01/22/23 History capsule,extended release 24 hr docusate sodium 100 mg capsule 100 mg PO BID #60 caps 06/28/21 01/22/23 Rx (Colace) ciprofloxacin HCl 500 mg tablet 500 mg PO BID 01/22/23 01/22/23 History folic acid 1 mg tablet 1 mg PO QAM 01/22/23 01/22/23 History hydrochlorothiazide 25 mg tablet 25 mg PO QAM 01/22/23 01/22/23 History metronidazole 500 mg tablet 500 mg PO BID 01/22/23 01/22/23 History Patient History Medical History Acid reflux Well controlled and stable Anxiety Asthma Uses albuterol PRN inh 2-3xwk on avg Breathing stable Barretts esophagus Stable Carotid stenosis S Vascular Surgery monitoring- Dr. Anderson Chua S/p left CEA - 2012 (<50% stenosis to left ICA) Right ICA 50-69% stenosis per 05/28/2021 carotid doppler Chronic anticoagulation Encounter for pre-operative examination Fatty liver History of COVID-19 09/2020; sob, cough, fever, body aches, chills; fully recovered History of TIA (transient ischemic attack) 2012 per records Hypercholesteremia Hypertension Lumbar stenosis with neurogenic claudication PAD (peripheral artery disease) Prediabetes Prostate cancer S/p prostatectomy 05/2021 Surgical History H/O adenoidectomy History of endarterectomy Thromboendarterectomy , neck Lt 2012 History of esophagogastroduodenoscopy History of lumbar fusion lumbar hemilaminectomy X 2 History of prostate biopsy Hx of cholecystectomy Hx of colonoscopy Hx of tonsillectomy Family History Father , 53yo Heart disease Brother Heart disease Status post cardiac surgery Smoker Mother , 62yo Bowel obstruction Sister Accident Sister Diabetes Sister Stroke Daughter No problems noted. 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 [employer]quisition Required: No Beliefs That Will Affect Care: None marital status: Current Living Situation: Spouse current occupational status: employed 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 Other Information That Helps Us Care for You: No Feels Safe at Home: Yes Safety Concerns: Feels Safe At This Time Diet: regular caffeine: No during the past year weight has: remained stable Assistive Devices: None Review of Systems Review of Systems: All systems reviewed & are unremarkable except as noted in HPI & below Physical Exam Constitutional: WD/WN, vitals as above Respiratory: normal respiratory effort Cardiovascular: Rate/Rhythm: regular rate and regular rhythm Gastrointestinal (Abdomen): Inspection/Auscultation: normal bowel sounds Percussion/Palpation: + abdomen tender and abdomen soft; no guarding and abdomen not rigid Skin: no rashes, warm and dry Results & Data Vital Signs (Past 12 Hours) Vital Signs Temp Pulse Resp BP Pulse Ox O2 Del Method 01/23/23 07:15 36.4 C L 59 L 16 101/64 97 Room Air 01/23/23 07:33 36.5 C 60 17 103/66 96 Room Air 01/22/23 20:38 36.6 C 68 18 90/56 L 97 Room Air Laboratory Results 01/23/23 01/23/23 01/23/23 Range/Units 09:00 05:27 05:27 WBC 6.00 (4.8-10.8) K/ul RBC 3.33 L (4.70-6.10) M/uL Hgb 10.2 L D (14.0-18.0) g/dl Hct 29.9 L (42.0-52.0) % MCV 89.8 (80.0-100.0) fL MCH 30.6 (25.0-34.0) pg MCHC 34.1 (32.0-36.0) g/dL RDW Std Deviation 41.9 (36.4-46.3) fL RDW Coeff of [place] 12.8 (11.5-14.5) % Plt Count 377 (130-400) K/uL MPV 9.2 L (9.4-12.4) fL Immature Gran % (Auto) 3.2 % Neut % (Auto) 71.1 % Lymph % (Auto) 3.7 % [place] % (Auto) 17.0 % Eos % (Auto) 4.5 % Baso % (Auto) 0.5 % Neut # (Auto) 4.27 (1.40-6.50) K/uL Lymph # (Auto) 0.22 L (1.2-3.4) K/uL [place] # (Auto) 1.02 H (0.11-0.59) K/uL Eos # (Auto) 0.27 (0-0.50) K/uL Baso # (Auto) 0.03 (0-0.2) K/uL Immature Gran # (Auto) 0.19 (0.01-0.20) K/uL Sodium 133 L (136-145) mmol/L Potassium 2.7 L (3.5-5.1) mmol/L Chloride 99 (98-107) mmol/L Carbon Dioxide 27 (21-32) mmol/L Anion Gap 7 (3-11) BUN 12 (6-23) mg/dl Creatinine 1.48 H (0.6-1.4) mg/dl Est Cr Clr Drug Dosing 56.4 Est GFR ( Amer) 56.7 ml/min Est GFR (Non-Af Amer) 49.0 ml/min BUN/Creatinine Ratio 8.1 L (10-20) Glucose 121 H (70-99(Fasting)) mg/dl Calcium 7.8 L (8.6-10.3) mg/dl Phosphorus 3.3 (2.5-4.9) mg/dl Magnesium 1.7 (1.7-2.4) mg/dl Total Bilirubin 0.6 (0.2-1.0) mg/dl AST 54 H (13-39) U/L ALT 32 (7-52) U/L Alkaline Phosphatase 149 H D (34-104) U/L Total Protein 5.3 L D (6.0-8.3) gm/dl Albumin 2.5 L (3.4-5.0) gm/dl Globulin 2.8 (2.5-4.0) gm/dl Albumin/Globulin Ratio 0.9 (0.9-2) Urine Color Yellow Urine Appearance Clear (Clear) Urine pH 6.5 (4.5-7.5) Ur Specific [place] 1.021 (1.000-1.030) Urine Protein Negative (Negative) Urine Glucose (UA) Negative (Negative) Urine Ketones Negative (Negative) Urine Blood Negative (Negative) Urine Nitrite Negative (Negative) Urine Bilirubin Negative (Negative) Urine Urobilinogen Negative (Negative) Ur Leukocyte Esterase Negative (Negative) SARS-CoV-2, RNA, NAAT (NEGATIVE) 01/22/23 01/22/23 01/22/23 Range/Units 12:48 11:25 11:25 WBC 12.08 H (4.8-10.8) K/ul RBC 4.88 (4.70-6.10) M/uL Hgb 15.2 (14.0-18.0) g/dl Hct 43.4 (42.0-52.0) % MCV 88.9 (80.0-100.0) fL MCH 31.1 (25.0-34.0) pg MCHC 35.0 (32.0-36.0) g/dL RDW Std Deviation 41.7 (36.4-46.3) fL RDW Coeff of Paulette 12.7 (11.5-14.5) % Plt Count 568 H (130-400) K/uL MPV 9.2 L (9.4-12.4) fL Immature Gran % (Auto) 4.2 % Neut % (Auto) 77.6 % Lymph % (Auto) 4.4 % [place] % (Auto) 12.7 % Eos % (Auto) 0.7 % Baso % (Auto) 0.4 % Neut # (Auto) 9.38 H (1.40-6.50) K/uL Lymph # (Auto) 0.53 L (1.2-3.4) K/uL [place] # (Auto) 1.53 H (0.11-0.59) K/uL Eos # (Auto) 0.08 (0-0.50) K/uL Baso # (Auto) 0.05 (0-0.2) K/uL Immature Gran # (Auto) 0.51 H (0.01-0.20) K/uL Sodium 133 L (136-145) mmol/L Potassium 2.8 L (3.5-5.1) mmol/L Chloride 91 L (98-107) mmol/L Carbon Dioxide 28 (21-32) mmol/L Anion Gap 14 H (3-11) BUN 13 (6-23) mg/dl Creatinine 1.62 H (0.6-1.4) mg/dl Est Cr Clr Drug Dosing Not Reportable Est GFR ( Amer) 50.9 ml/min Est GFR (Non-Af Amer) 43.9 ml/min BUN/Creatinine Ratio 8.0 L (10-20) Glucose 138 H (70-99(Fasting)) mg/dl Calcium 9.3 (8.6-10.3) mg/dl Phosphorus (2.5-4.9) mg/dl Magnesium 1.6 L (1.7-2.4) mg/dl Total Bilirubin 0.6 (0.2-1.0) mg/dl AST 34 (13-39) U/L ALT 27 (7-52) U/L Alkaline Phosphatase 68 (34-104) U/L Total Protein 8.2 (6.0-8.3) gm/dl Albumin 3.7 (3.4-5.0) gm/dl Globulin 4.5 H (2.5-4.0) gm/dl Albumin/Globulin Ratio 0.8 L (0.9-2) Urine Color Urine Appearance (Clear) Urine pH (4.5-7.5) Ur Specific [place] (1.000-1.030) Urine Protein (Negative) Urine Glucose (UA) (Negative) Urine Ketones (Negative) Urine Blood (Negative) Urine Nitrite (Negative) Urine Bilirubin (Negative) Urine Urobilinogen (Negative) Ur Leukocyte Esterase (Negative) SARS-CoV-2, RNA, NAAT NEGATIVE (NEGATIVE)
[2023-01-23] MEDS: POTASSIUM CHLORIDE / WTR 10 MEQ/100 ML PLCT IV SCH ×4 (08:50→13:12)
[2023-01-23] MEDS: CYANOCOBALAMIN (B-12) 500 MCG TABLET PO SCH (08:58)
[2023-01-23] MEDS: FOLIC ACID 1 MG TAB PO SCH (08:59)
[2023-01-23] MEDS: busPIRone 5 MG TAB PO SCH ×2 (08:59→19:53)
[2023-01-23] MEDS: PANTOprazole 40 MG TAB PO SCH (08:59)
[2023-01-23] MEDS ORDERED: CLOPIDOGREL BISULFATE 75 MG TAB PO SCH (09:00)
[2023-01-23] MEDS ORDERED: LOSARTAN POTASSIUM 50 MG TAB PO SCH (09:00)
[2023-01-23] MEDS ORDERED: hydroCHLOROthiazide 25 MG TAB PO SCH (09:00)
[2023-01-23] MEDS: DOCUSATE SODIUM 100 MG CAP PO SCH ×2 (09:03→19:48)
[2023-01-23] MEDS: FLUTICASONE FUROATE 100MCG 14 PUFFS/INHALER INH SCH (09:03)
[2023-01-23] MEDS: valACYclovir HCL 500 MG TABLET PO SCH (09:03)
[2023-01-23 09:20] LABS: Appearance Urine Clear (Clear); Bilirubin Urine Negative (Negative); Blood Urine Negative (Negative); Color Urine Yellow; Glucose Urine UA Negative (Negative); Ketones Urine Negative (Negative); Leukocyte Esterase Urine Negative (Negative); Nitrite Urine Negative (Negative); Protein Urine Negative (Negative); Specific Gravity Urine 1.021 (1.000-1.030); Urobilinogen Urine Negative (Negative); pH Urine 6.5 (4.5-7.5)
--- NOTE | 2023-01-23 09:52 | Surgery Progress Note ---
Date of Service January 23, 2023 Assessment & Plan (1) Acute radiation colitis: (2) Diverticulitis: Plan 67-year-old gentleman appears to have combination of acute radiation colitis versus severe diverticulitis. He just finished radiation therapy 3 weeks ago. avss leukocytosis resolved moderate lower abdominal pain, stable, controlled repeat ct scan with contrast IV and Oral showing severe sigmoid thickening measuring 2.6 cm however no abscess, perforation or obstruction. + bowel function Plan: Continue conservative measures: NPO for bowel rest given severe colonic thickening, IV antibiotics, IV fluids, pain management and antiemetics as needed. Will likely require 3-4 days of IV antibiotics given severe inflammation and failure of outpatient oral antibiotics. Parental nutrition to start today would recommend holding Plavix in case of need for surgical intervention. Per patient, he has stopped his Plavix before without any issues. Lovenox already ordered. continue current medical management ambulate hallway replace potassium repeat am labs while npo Discussed with Dr. Sifuentes who agrees with above. Admission and Anticipated Discharge Date Admission Date: January 22, 2023 Subjective feeling about the same as yesterday, not worse abdominal pain in lower abdomen prior and after bowel movements loose bowel movements this am , no blood in stools mild nausea, no vomiting no fevers, chills, sweats no chest pain or shortness of breath Physical Exam Constitutional: WD/WN, vitals as above cooperative and comfortable; no acute distress, not ill appearing and not in distress Respiratory: normal respiratory effort, lungs clear to auscultation Cardiovascular: RRR, no murmur, no edema Gastrointestinal (Abdomen): Inspection/Auscultation: abdomen normal to inspection, + abdominal surgical scar (laparoscopic scars) and + hypoactive bowel sounds; abdomen not distended and + abnormal bowel sounds Percussion/Palpation: + abdomen tender (lower abdomen bilaterally) and abdomen soft; no guarding, abdomen not rigid and abdomen not firm Skin: no rashes, warm and dry Psychiatric: A+Ox3, euthymic affect Results & Data Vital Signs (Past 12 Hours) Vital Signs Temp Pulse Resp BP Pulse Ox O2 Del Method 01/23/23 07:15 36.4 C L 59 L 16 101/64 97 Room Air 01/23/23 07:33 36.5 C 60 17 103/66 96 Room Air Laboratory Results 01/23/23 01/23/23 01/23/23 Range/Units 09:00 05:27 05:27 WBC 6.00 (4.8-10.8) K/ul RBC 3.33 L (4.70-6.10) M/uL Hgb 10.2 L D (14.0-18.0) g/dl Hct 29.9 L (42.0-52.0) % MCV 89.8 (80.0-100.0) fL MCH 30.6 (25.0-34.0) pg MCHC 34.1 (32.0-36.0) g/dL RDW Std Deviation 41.9 (36.4-46.3) fL RDW Coeff of Paulette 12.8 (11.5-14.5) % Plt Count 377 (130-400) K/uL MPV 9.2 L (9.4-12.4) fL Immature Gran % (Auto) 3.2 % Neut % (Auto) 71.1 % Lymph % (Auto) 3.7 % [place] % (Auto) 17.0 % Eos % (Auto) 4.5 % Baso % (Auto) 0.5 % Neut # (Auto) 4.27 (1.40-6.50) K/uL Lymph # (Auto) 0.22 L (1.2-3.4) K/uL [place] # (Auto) 1.02 H (0.11-0.59) K/uL Eos # (Auto) 0.27 (0-0.50) K/uL Baso # (Auto) 0.03 (0-0.2) K/uL Immature Gran # (Auto) 0.19 (0.01-0.20) K/uL Sodium 133 L (136-145) mmol/L Potassium 2.7 L (3.5-5.1) mmol/L Chloride 99 (98-107) mmol/L Carbon Dioxide 27 (21-32) mmol/L Anion Gap 7 (3-11) BUN 12 (6-23) mg/dl Creatinine 1.48 H (0.6-1.4) mg/dl Est Cr Clr Drug Dosing 56.4 Est GFR ( Amer) 56.7 ml/min Est GFR (Non-Af Amer) 49.0 ml/min BUN/Creatinine Ratio 8.1 L (10-20) Glucose 121 H (70-99(Fasting)) mg/dl Calcium 7.8 L (8.6-10.3) mg/dl Phosphorus 3.3 (2.5-4.9) mg/dl Magnesium 1.7 (1.7-2.4) mg/dl Total Bilirubin 0.6 (0.2-1.0) mg/dl AST 54 H (13-39) U/L ALT 32 (7-52) U/L Alkaline Phosphatase 149 H D (34-104) U/L Total Protein 5.3 L D (6.0-8.3) gm/dl Albumin 2.5 L (3.4-5.0) gm/dl Globulin 2.8 (2.5-4.0) gm/dl Albumin/Globulin Ratio 0.9 (0.9-2) Urine Color Yellow Urine Appearance Clear (Clear) Urine pH 6.5 (4.5-7.5) Ur Specific [place] 1.021 (1.000-1.030) Urine Protein Negative (Negative) Urine Glucose (UA) Negative (Negative) Urine Ketones Negative (Negative) Urine Blood Negative (Negative) Urine Nitrite Negative (Negative) Urine Bilirubin Negative (Negative) Urine Urobilinogen Negative (Negative) Ur Leukocyte Esterase Negative (Negative) SARS-CoV-2, RNA, NAAT (NEGATIVE) 01/22/23 01/22/23 01/22/23 Range/Units 12:48 11:25 11:25 WBC 12.08 H (4.8-10.8) K/ul RBC 4.88 (4.70-6.10) M/uL Hgb 15.2 (14.0-18.0) g/dl Hct 43.4 (42.0-52.0) % MCV 88.9 (80.0-100.0) fL MCH 31.1 (25.0-34.0) pg MCHC 35.0 (32.0-36.0) g/dL RDW Std Deviation 41.7 (36.4-46.3) fL RDW Coeff of Paulette 12.7 (11.5-14.5) % Plt Count 568 H (130-400) K/uL MPV 9.2 L (9.4-12.4) fL Immature Gran % (Auto) 4.2 % Neut % (Auto) 77.6 % Lymph % (Auto) 4.4 % [place] % (Auto) 12.7 % Eos % (Auto) 0.7 % Baso % (Auto) 0.4 % Neut # (Auto) 9.38 H (1.40-6.50) K/uL Lymph # (Auto) 0.53 L (1.2-3.4) K/uL [place] # (Auto) 1.53 H (0.11-0.59) K/uL Eos # (Auto) 0.08 (0-0.50) K/uL Baso # (Auto) 0.05 (0-0.2) K/uL Immature Gran # (Auto) 0.51 H (0.01-0.20) K/uL Sodium 133 L (136-145) mmol/L Potassium 2.8 L (3.5-5.1) mmol/L Chloride 91 L (98-107) mmol/L Carbon Dioxide 28 (21-32) mmol/L Anion Gap 14 H (3-11) BUN 13 (6-23) mg/dl Creatinine 1.62 H (0.6-1.4) mg/dl Est Cr Clr Drug Dosing Not Reportable Est GFR ( Amer) 50.9 ml/min Est GFR (Non-Af Amer) 43.9 ml/min BUN/Creatinine Ratio 8.0 L (10-20) Glucose 138 H (70-99(Fasting)) mg/dl Calcium 9.3 (8.6-10.3) mg/dl Phosphorus (2.5-4.9) mg/dl Magnesium 1.6 L (1.7-2.4) mg/dl Total Bilirubin 0.6 (0.2-1.0) mg/dl AST 34 (13-39) U/L ALT 27 (7-52) U/L Alkaline Phosphatase 68 (34-104) U/L Total Protein 8.2 (6.0-8.3) gm/dl Albumin 3.7 (3.4-5.0) gm/dl Globulin 4.5 H (2.5-4.0) gm/dl Albumin/Globulin Ratio 0.8 L (0.9-2) Urine Color Urine Appearance (Clear) Urine pH (4.5-7.5) Ur Specific [place] (1.000-1.030) Urine Protein (Negative) Urine Glucose (UA) (Negative) Urine Ketones (Negative) Urine Blood (Negative) Urine Nitrite (Negative) Urine Bilirubin (Negative) Urine Urobilinogen (Negative) Ur Leukocyte Esterase (Negative) SARS-CoV-2, RNA, NAAT NEGATIVE (NEGATIVE) Diagnostic Findings Exam(s): CT ABDOMEN + PELVIS With Contrast Oral - High Density Amt: gastrografin 30 ml, IV Amt: 92 ml optiray 320 EXAM: CT Abdomen and Pelvis With Intravenous Contrast CLINICAL HISTORY: Reason for exam: diverticulitis/radiation colitis,. TECHNIQUE: Axial computed tomography images of the abdomen and pelvis with intravenous contrast. Automated exposure control was utilized for the study. A dose lowering technique was utilized adhering to the principles of ALARA. CONTRAST: Patient received gastrografin 30 ml of Oral - High Density and 92 ml optiray 320 of IV contrast COMPARISON: No relevant prior studies available. FINDINGS: Lung bases: Unremarkable. No mass. No consolidation. ABDOMEN: Liver: Unremarkable. No mass. Gallbladder and bile ducts: Cholecystectomy. No ductal dilation. Pancreas: Unremarkable. No mass. No ductal dilation. Spleen: Unremarkable. No splenomegaly. Adrenals: Unremarkable. No mass. Kidneys and ureters: Bilateral renal cysts. No hydronephrosis. Stomach and bowel: Severe wall thickening of the sigmoid colon, which measures up to 2.6 cm in thickness. Mild pericolonic fat stranding. Correlate for colitis. Note, underlying colon neoplasm cannot be excluded. Surgical evaluation recommended. Diverticulosis, without focal peridiverticular inflammation. No obstruction. PELVIS: Appendix: No findings to suggest acute appendicitis. Bladder: Unremarkable. No mass. Reproductive: Unremarkable as visualized. ABDOMEN and PELVIS: Intraperitoneal space: Unremarkable. No free air. No significant fluid collection. Bones/joints: Degenerative changes of the spine. Posterior lumbar fusion L4-S1. No acute fracture. No dislocation. Soft tissues: Unremarkable. Vasculature: Atherosclerotic changes of the aorta. No abdominal aortic aneurysm. Lymph nodes: Unremarkable. No enlarged lymph nodes. IMPRESSION: Severe wall thickening of the sigmoid colon, which measures up to 2.6 cm in thickness. Mild pericolonic fat stranding. Correlate for colitis. Note, underlying colon neoplasm cannot be excluded. Surgical evaluation recommended.
[2023-01-23] MEDS: traMADol HCL 50 MG TABLET PO PRN ×2 (11:05→19:54)
--- NOTE | 2023-01-23 12:41 | Hospitalist Progress Note ---
Date of Service January 23, 2023 Assessment & Plan (1) Left sided abdominal pain: (2) ANURADHA (acute kidney injury): (3) Hypokalemia: (4) Failure of outpatient treatment: (5) Hypomagnesemia: (6) Diverticulitis: (7) Acute radiation colitis: (8) Prostate cancer: (9) HLD (hyperlipidemia): (10) DDD (degenerative disc disease), cervical: (11) Chronic alcohol use: Plan per admitting service notes with addendum: This is a 67yoM with a PMhx of prostate cancer s/p radical prostatectomy with pelvic lymph node dissection in 2020 (recently completed radiation treatments on December 30), HTN, HLD, Anxiety, Asthma, DDD, GERD, chronic alcohol use and Carotid stenosis s/p endarterectomy. He presented from his general surgeon's office for hospital admission for suspected chronic diverticulitis vs. occult mass or radiation related changes of the sigmoid colon. EPIC CT (01/08/23) and colonoscopy (01/16/23) results reviewed. Abdominal pain/chronic diverticulitis/radiation related changes of the sigmoid colon Pt completed radiation on December 30, and developed chronic abdominal pain with BRBPR Was seen in the [facility] ED and had a CT scan done on 01/08 that showed a possible 12cm sigmoid colon mass that was read as "probable sigmoid carcinoma with metastatic lymphadenopathy". Pt had a colonoscopy 3 months prior that did not show any abnormalities. Colonoscopy was repeated by GI on 01/16 with biopsy of the concerning area. The repeat colonoscopy did not show a mass but showed severe inflammation and stricture. The c- scope could not pass through the area of concern, though the pt was passing gas and had been having bowel movements. GI's differential included "chronic diverticulitis, post radiation changes or occult mass". Biopsy results did not show dysplasia but showed a "hyperplastic colonic mucosa with mild inflammation". Pt was treated with PO cipro and flagyl, states he completed 6 days of it. He had his General surgery visit today for consideration of surgically removing the affected colon, and was advised to go to the hospital for IV antibiotics after being deemed to have failed outpatient treatment. Received a dose of Unasyn in the ED, will continue with IV Zosyn. IV fluids, NPO except for medications, IV zofran prn for nausea Tylenol for mild pain, continue home tramadol as needed for moderate pain, IV morphine ordered for severe pain Consult GI and General surgery 01/23 CT abd/pelvis: Severe wall thickening of the sigmoid colon, which measures up to 2.6 cm in thickness. Mild pericolonic fat stranding. Correlate for colitis. discussed with Gen Surg NPO for now hold Plavix IV Zosyn Hypokalemia Potassium 2.8 on admission Received 2 bags of potassium 10mEq in the ED PO KCl 40mEq ordered NSS w/KCl 20meQ ordered @80 Repeat BMP in AM 01/23 IV and PO K replacement repeat K at 5 pm Hypomagnesemia Mag of 1.7 Repleted in the ED 01/23 replaced Moderate malnutrition will need PPN discussed with Pharmacist, recommend to hold off on PPN until K is normalized to prevent refeeding syndrome ANURADHA Cr elevated at 1.6, was 1.2 about a year ago NSS w/KCl as above Hold home losartan and HCTZ Continue to monitor 01/23 crea 1.6 to 1.4 continue IV fluids Prostate cancer- follows with urology, radiation oncology. HTN- on losartan, propanolol, nifedipine and hctz. BP on softer side. Holding losartan and HCTZ as noted above. HLD-continue home statin Asthma-continue home inhalers Anxiety- continue home buspar DDD- continue home tramadol prn Chronic alcohol use- continue home folate and thiamine. Pt states his last drink was a week ago, states he does not drink everyday anymore. Denies withdrawal symptoms if he is without alcohol for the extended periods he notes. GERD- continue home ppi Carotid stenosis- hold Plavix in case patient would need urgent surgery Diet: NPO DVT prophylaxis: Lovenox SQ CODE STATUS: Full code Dispo: Med/Surg plan of care discussed with patient in detail and at length all questions answered he is understanding, agreeable, comfortable with the plan of care Admission and Anticipated Discharge Date Admission Date: January 22, 2023 Subjective ff up for sigmoid stricture, etc seen resting in bed, not in distress states he is still having LLQ pain, relieved by pain medication worse with BM, having some liquid stools feels on the weak side no other symptoms Review of Systems Review of Systems: all noted and negative except for above Physical Exam Physical Exam: General- oriented x 3, not in distress, speaks in sentences with no effort or accessory muscle use Head- atraumatic Eyes- PERRL, EOMI, anicteric ENT- oropharynx clear Neck- supple, no JVD, no adenopathy, no thyromegaly; carotids +2/2, no bruits appreciated Lungs- clear to auscultation bilaterally, no rales/wheezes Heart- normal rate, regular rhythm; no murmur, no gallop, no rub appreciated Abdomen- normal bowel sounds, nondistended, soft, mild LLQ tenderness, no masses or hepatosplenomegaly Extremities- no pretibial edema, no calf tenderness; peripheral pulses intact Neuro- alert, oriented x 3; CN 2-12 grossly intact; motor 5/5 bilaterally;sensation 100% on all extremities; no other gross focal neurologic deficits Skin- warm & dry Results & Data Results & Data Vital Signs (Past 12 Hours) Vital Signs Temp Pulse Resp BP Pulse Ox O2 Del Method 01/23/23 07:15 36.4 C L 59 L 16 101/64 97 Room Air 01/23/23 07:33 36.5 C 60 17 103/66 96 Room Air all noted and reviewed including below
[2023-01-23] MEDS: D5NSS + 20MEQ KCL 20 MEQ/1,000 ML BAG IV SCH (14:45)
[2023-01-23] MEDS: ENOXAPARIN INJ 40 MG/0.4 ML SYR SQ SCH (19:49)
[2023-01-23] MEDS: ROSUVASTATIN CALCIUM 5 MG TAB PO SCH (19:52)
[2023-01-23] MEDS: PROPRANOLOL HCL 60 MG LA CAP PO SCH (19:52)
[2023-01-23] MEDS: NIFEdipine EXTENDED REL 30 MG TABCR PO SCH (19:52)
[2023-01-23] MEDS: EZETIMIBE 10 MG TABLET PO SCH (19:53)
[2023-01-23] MEDS: COLESTIPOL HCL 1 GM TAB PO SCH (19:53)
[2023-01-23] MEDS ORDERED: Nursing to Pharmacy Communication SCH (20:00)
[2023-01-24] MEDS: ACETAMINOPHEN 500 MG TAB PO SCH ×3 (00:59→16:49)
[2023-01-24] MEDS: D5NSS + 20MEQ KCL 20 MEQ/1,000 ML BAG IV SCH ×2 (01:00→11:38)
[2023-01-24] MEDS: PIPERACILLIN/TAZOBACTAM 4.5 GM in DEXTROSE 5% 100 ML IV SCH ×2 (02:00→12:44)
[2023-01-24] MEDS: MoRPHine SULFATE 2 MG/ML CARP IV PRN ×3 (05:23→21:31)
[2023-01-24] MEDS ORDERED: POTASSIUM CHLORIDE CRTAB 20 MEQ TABCR PO ONE (06:00)
[2023-01-24 06:44] LABS: Basophils # (auto) 0.04 K/uL (0-0.2); Basophils % (auto) 0.5 %; Eosinophils # (auto) 0.26 K/uL (0-0.50); Eosinophils % (auto) 3.4 %; Hematocrit (blood only) 31.1 % (42.0-52.0); Hemoglobin 10.6 g/dl (14.0-18.0); Immature Granulocytes # (auto) 0.11 K/uL (0.01-0.20); Immature Granulocytes % (auto) 1.4 %; Lymphocytes # (auto) 0.23 K/uL (1.2-3.4); Mean Corpuscular Hgb Conc 34.1 g/dL (32.0-36.0); Mean Corpuscular Volume 90.9 fL (80.0-100.0); Mean Platelet Volume 9.2 fL (9.4-12.4); Monocytes # (auto) 1.05 K/uL (0.11-0.59); Monocytes % (auto) 13.8 %; Neutrophils # (auto) 5.93 K/uL (1.40-6.50); Neutrophils % (auto) 77.9 %; Platelet Count 357 K/uL (130-400); RDW Standard Deviation 42.8 fL (36.4-46.3); Red Blood Count 3.42 M/uL (4.70-6.10); White Blood Count 7.62 K/ul (4.8-10.8)
[2023-01-24 07:15] LABS: Albumin Level 2.6 gm/dl (3.4-5.0); BUN Creatinine Ratio 7.1 (10-20); Bilirubin,Total 0.4 mg/dl (0.2-1.0); Creatinine Clr Calc Pharmacy 84.3 ml/min; Est GFR (African American) 92.2 ml/min; Est GFR (Non-African American) 79.6 ml/min; Globulin 2.7 gm/dl (2.5-4.0); Magnesium 1.4 mg/dl (1.7-2.4); Phosphorus 2.8 mg/dl (2.5-4.9); Potassium 2.9 mmol/L (3.5-5.1); Total Protein 5.3 gm/dl (6.0-8.3)
[2023-01-24] MEDS ORDERED: POTASSIUM CHLORIDE CRTAB 20 MEQ TABCR PO STA (07:21)
[2023-01-24] MEDS: MAGNESIUM SULFATE / D5W 1 GM/100 ML BAG IV SCH ×2 (07:57→09:39)
[2023-01-24] MEDS: traMADol HCL 50 MG TABLET PO PRN ×2 (08:01→20:22)
--- NOTE | 2023-01-24 09:25 | Gastroenterology Progress Note ---
Date of Service January 24, 2023 Assessment & Plan (1) Left sided abdominal pain: Plan 67 year old male with history of T2DM, dyslipidemia, asthma, HTN, PAD, carotid stenosis, TIA, GERD, fatty liver, obesity, anticoagulated on coumadin, prostate CA s/p radiation and others below admitted w/ abd pain x 1 month and dehydration. Recent colonoscopy w/ severe inflammation and stricture of the sigmoid colon, referred to general surgery for management. Radiation colitis vs diverticultis vs other Agree with IV ABX Defer diet to general surgery Primary management per general surgery No indication for endoscopic evaluation Send C-diff today Admission and Anticipated Discharge Date Admission Date: January 22, 2023 Subjective Had diarrhea overnight, pain is less, passing air, overall mildy improved Physical Exam Physical Exam: General- oriented x 3, not in distress, speaks in sentences with no effort or accessory muscle use Head- atraumatic Eyes- PERRL, EOMI, anicteric ENT- oropharynx clear Neck- supple, no JVD, no adenopathy, no thyromegaly; carotids +2/2, no bruits appreciated Lungs- clear to auscultation bilaterally, no rales/wheezes Heart- normal rate, regular rhythm; no murmur, no gallop, no rub appreciated Abdomen- normal bowel sounds, nondistended, soft, mild LLQ tenderness, no masses or hepatosplenomegaly Extremities- no pretibial edema, no calf tenderness; peripheral pulses intact Neuro- alert, oriented x 3; CN 2-12 grossly intact; motor 5/5 bilaterally;sensation 100% on all extremities; no other gross focal neurologic deficits Skin- warm & dry Results & Data Vital Signs (Past 12 Hours) Vital Signs Temp Pulse Resp BP Pulse Ox O2 Del Method 01/24/23 07:59 36.5 C 72 16 114/73 95 Room Air
[2023-01-24] MEDS: FOLIC ACID 1 MG TAB PO SCH (09:27)
[2023-01-24] MEDS: POTASSIUM CHLORIDE / WTR 10 MEQ/100 ML PLCT IV SCH ×2 (09:27→10:40)
[2023-01-24] MEDS: CYANOCOBALAMIN (B-12) 500 MCG TABLET PO SCH (09:27)
[2023-01-24] MEDS: PANTOprazole 40 MG TAB PO SCH (09:28)
[2023-01-24] MEDS: valACYclovir HCL 500 MG TABLET PO SCH (09:28)
[2023-01-24] MEDS: busPIRone 5 MG TAB PO SCH ×2 (09:28→20:21)
[2023-01-24] MEDS: DOCUSATE SODIUM 100 MG CAP PO SCH (09:28)
[2023-01-24] MEDS: FLUTICASONE FUROATE 100MCG 14 PUFFS/INHALER INH SCH (09:29)
--- NOTE | 2023-01-24 09:57 | Surgery Progress Note ---
Date of Service January 24, 2023 Assessment & Plan (1) Diverticulitis: Plan: afebrile WBC normal still with pain con't IV abx await access and TPN likely will need attention to stricture but will delay as long as possible with recent XRT Present on Admission?: Yes Admission and Anticipated Discharge Date Admission Date: January 22, 2023 Subjective some pain last night but better this AM no chills passing liquid BMs Review of Systems Constitutional: no fever and no chills Respiratory: no cough and no dyspnea Cardiovascular: no chest pain Gastrointestinal: + abdominal pain, + change in bowel habits and + diarrhea/loose stools; no nausea and no vomiting Genitourinary: no dysuria Musculoskeletal: no back pain Integumentary: no problem reported Neurologic: no localized weakness and no generalized weakness Psychiatric: no behavioral changes Physical Exam Constitutional: WD/WN, vitals as above Eyes: PERRL, conjunctivae normal, anicteric sclerae Neck: trachea midline Respiratory: normal respiratory effort, lungs clear to auscultation Cardiovascular: RRR, no murmur, no edema Gastrointestinal (Abdomen): Inspection/Auscultation: abdomen normal to inspection and normal bowel sounds; abdomen not distended Percussion/Palpation: + abdomen tender and abdomen soft; no guarding and abdomen not rigid Musculoskeletal: Head/Neck/Chest: normocephalic and head atraumatic Skin: no rashes, warm and dry Results & Data Vital Signs (Past 12 Hours) Vital Signs Temp Pulse Resp BP Pulse Ox O2 Del Method 01/24/23 07:59 36.5 C 72 16 114/73 95 Room Air
[2023-01-24] MEDS ORDERED: DEXTROSE 10% 1,000 ML IV PRN (13:16)
--- NOTE | 2023-01-24 14:04 | Pharmacy Report ---
Pharmacy PN Initial Consult - Date of Service January 24, 2023 - Scope Pharmacy has been consulted to manage parenteral nutrition orders and order appropriate labs. As part of the Nutrition Support Team guidelines, pharmacy will work in conjunction with dietary when determining the patients caloric needs. - Subjective The patient is a 67 year old M admitted on 01/22/23 13:00 for ABDOMINAL PAIN/CHRONIC DIVERTICULITIS. Patient is to receive parenteral nutrition for prolonged poor PO intake secondary to colonic stricture. Possible radiation colitis vs. diverticulitis. - Objective Height: 5 ft 10 in Weight: 90.9 kg Intake & Output (Last 24Hrs): Intake & Output 01/22/23 01/23/23 01/24/23 01/25/23 06:59 06:59 06:59 06:59 Intake Total 2628 / 2628 2880 / 2880 1385 / 1385 Output Total 5 / Balance 2628 / 2628 2875 / 2875 1385 / 1385 Weight 90.9 kg 90.9 kg Laboratory Data (Last 24 Hrs):: 01/23/23 01/24/23 01/24/23 16:51 06:17 11:51 Sodium 136 Potassium 3.1 L 2.9 L 3.6 D Chloride 105 Carbon Dioxide 25 BUN 7 Creatinine 0.99 D Glucose 134 H Calcium 8.0 L Phosphorus 2.8 Magnesium 1.4 L Total Bilirubin 0.4 AST 22 ALT 23 Alkaline Phosphatase 114 H Albumin 2.6 L Nutrition Assessment:: Please refer to the Notes section of the EMR for the most recent quill skinner note. - Assessment * AM is a 67 year old male ordered TPN due to prolonged poor PO intake secondary to colonic stricture. Patient has history of prostate cancer, s/p radiation. * Plan was originally for TPN to start yesterday, but this was deferred in order to replete potassium. Potassium of 2.9 mmol/L this morning, but 3.6 mmol/L after further repletion today. Discussed with hospitalist and will start TPN today. * PICC line placed today * Magnesium level at 1.4 this morning, repleted with 2 g of IV magnesium sulfate this morning and will add to PN today * Macronutrient recs provided by dietary, will start at ~50% of goal today to limit initial dextrose-load. Will add thiamine to bag. * Elected to use full 2 L bag of PPN formulation today (to be administered via PICC line) -> will advance to central formulation tomorrow - Plan For day 1 of PN administration, the following will be ordered: Macronutrients Amino acids 85 grams/day Dextrose 100 grams/day Lipids 50 grams/day Micronutrients Combined electrolytes 20 mL - contains 35 mEq Na, 20 meq K, 4.5 mEq Ca, 5 mEq Mg, 35 mEq Cl, 29.5 mEq acetate per 20 mL Sodium chloride 30 mEq Sodium acetate 100 mEq Potassium phosphate 30 mMol Potassium chloride 60 mEq Magnesium sulfate 8.12 mEq Multivitamins 10 mL Trace Elements 10 mL Additional additives: thiamine 100 mg Total volume 2136 mL to be infused over 24 hrs will provide 1180 kcal/day Final osmolarity 906 mOsm/L (maximum for PPN is 900 mOsm/L) -> formulation to be administered via PICC line (confirmed this with RN and updated protocol comments) Labs to be ordered per PN order protocol Pharmacy will follow and adjust parenteral nutrition orders on a daily basis. Thank you.
--- NOTE | 2023-01-24 15:52 | Hospitalist Progress Note ---
Date of Service January 24, 2023 Assessment & Plan (1) Left sided abdominal pain: (2) ANURADHA (acute kidney injury): (3) Hypokalemia: (4) Failure of outpatient treatment: (5) Hypomagnesemia: (6) Diverticulitis: (7) Acute radiation colitis: (8) Prostate cancer: (9) HLD (hyperlipidemia): (10) DDD (degenerative disc disease), cervical: (11) Chronic alcohol use: Plan per admitting service notes with addendum: This is a 67yoM with a PMhx of prostate cancer s/p radical prostatectomy with pelvic lymph node dissection in 2020 (recently completed radiation treatments on December 30), HTN, HLD, Anxiety, Asthma, DDD, GERD, chronic alcohol use and Carotid stenosis s/p endarterectomy. He presented from his general surgeon's office for hospital admission for suspected chronic diverticulitis vs. occult mass or radiation related changes of the sigmoid colon. EPIC CT (01/08/23) and colonoscopy (01/16/23) results reviewed. Abdominal pain/chronic diverticulitis/radiation related changes of the sigmoid colon Pt completed radiation on December 30, and developed chronic abdominal pain with BRBPR Was seen in the [facility] ED and had a CT scan done on 01/08 that showed a possible 12cm sigmoid colon mass that was read as "probable sigmoid carcinoma with metastatic lymphadenopathy". Pt had a colonoscopy 3 months prior that did not show any abnormalities. Colonoscopy was repeated by GI on 01/16 with biopsy of the concerning area. The repeat colonoscopy did not show a mass but showed severe inflammation and stricture. The c- scope could not pass through the area of concern, though the pt was passing gas and had been having bowel movements. GI's differential included "chronic diverticulitis, post radiation changes or occult mass". Biopsy results did not show dysplasia but showed a "hyperplastic colonic mucosa with mild inflammation". Pt was treated with PO cipro and flagyl, states he completed 6 days of it. He had his General surgery visit today for consideration of surgically removing the affected colon, and was advised to go to the hospital for IV antibiotics after being deemed to have failed outpatient treatment. Received a dose of Unasyn in the ED, will continue with IV Zosyn. IV fluids, NPO except for medications, IV zofran prn for nausea Tylenol for mild pain, continue home tramadol as needed for moderate pain, IV morphine ordered for severe pain Consult GI and General surgery 01/23 CT abd/pelvis: Severe wall thickening of the sigmoid colon, which measures up to 2.6 cm in thickness. Mild pericolonic fat stranding. Correlate for colitis. discussed with Gen Surg NPO for now hold Plavix IV Zosyn 01/24 Abdominal pain seems to be improving Continue IV Zosyn for now per general surgery, trying to avoid surgical intervention in light of recent radiation therapy Check stool for C. difficile: Negative Send for stool PCR as well Hypokalemia Potassium 2.8 on admission Received 2 bags of potassium 10mEq in the ED PO KCl 40mEq ordered NSS w/KCl 20meQ ordered @80 Repeat BMP in AM 01/23 IV and PO K replacement repeat K at 5 pm 01/24 Secondary to poor oral intake, diarrhea IV n.p.o. potassium given, now 3.6 Hypomagnesemia Mag of 1.7 Repleted in the ED 01/24 IV magnesium ordered Moderate malnutrition will need PPN discussed with Pharmacist, recommend to hold off on PPN until K is normalized to prevent refeeding syndrome 01/24 PICC line placed Discussed with pharmacist, will start PPN today ANURADHA Cr elevated at 1.6, was 1.2 about a year ago NSS w/KCl as above Hold home losartan and HCTZ Continue to monitor 01/23 crea 1.6 to 1.4 continue IV fluids 01/24 Resolved Prostate cancer- follows with urology, radiation oncology. HTN- on losartan, propanolol, nifedipine and hctz. BP on softer side. Holding losartan and HCTZ as noted above. HLD-continue home statin Asthma-continue home inhalers Anxiety- continue home buspar DDD- continue home tramadol prn Chronic alcohol use- continue home folate and thiamine. Pt states his last drink was a week ago, states he does not drink everyday anymore. Denies withdrawal symptoms if he is without alcohol for the extended periods he notes. GERD- continue home ppi Carotid stenosis- hold Plavix in case patient would need urgent surgery Diet: NPO DVT prophylaxis: Lovenox held in light of possible surgery CODE STATUS: Full code Dispo: Lives at home with family plan of care discussed with patient in detail and at length all questions answered he is understanding, agreeable, comfortable with the plan of care Admission and Anticipated Discharge Date Admission Date: January 22, 2023 Subjective Follow-up for sigmoid stricture, etc. Seen resting in bed, sitting up, not in distress, comfortable States he had a rough night, had multiple episodes of loose bowel movements Mostly brown but this morning had noticed tinge of blood Left lower quadrant pain somewhat improved today No nausea or vomiting no chest pain, dyspnea, palpitations, dizziness No other symptoms Review of Systems Review of Systems: all noted and negative except for above Physical Exam Physical Exam: General- oriented x 3, not in distress, speaks in sentences with no effort or accessory muscle use Eyes- anicteric Neck- no JVD Lungs- clear breath sounds bilaterally, no rales/wheezes Heart- normal rate, regular rhythm; no murmurs Abdomen- normal bowel sounds, nondistended, soft, minimal left lower quadrant tenderness Extremities- no pretibial edema, no calf tenderness Neuro- alert, oriented x 3; no gross focal neurologic deficits Skin- warm & dry Results & Data Results & Data Vital Signs (Past 12 Hours) Vital Signs Temp Pulse Resp BP Pulse Ox O2 Del Method 01/24/23 15:22 36.6 C 68 18 114/76 97 Room Air 01/24/23 10:47 Room Air 01/24/23 07:59 36.5 C 72 16 114/73 95 Room Air all noted and reviewed including below
[2023-01-24] MEDS ORDERED: [UNRECOGNIZED DRUG - OTHER] IV SCH (16:00)
[2023-01-24] MEDS ORDERED: PERIPHERAL TPN IV SCH (16:00)
[2023-01-24] MEDS ORDERED: CLINOLIPID 20% IV FAT EMULSION 250 ML IV SCH (16:00)
[2023-01-24] MEDS ORDERED: [UNRECOGNIZED DRUG - REMARK] ONE (16:00)
[2023-01-24] MEDS ORDERED: Nursing to Pharmacy Communication SCH (18:15)
[2023-01-24] MEDS: COLESTIPOL HCL 1 GM TAB PO SCH (20:21)
[2023-01-24] MEDS: NIFEdipine EXTENDED REL 30 MG TABCR PO SCH (20:21)
[2023-01-24] MEDS: ENOXAPARIN INJ 40 MG/0.4 ML SYR SQ SCH (20:21)
[2023-01-24] MEDS: PROPRANOLOL HCL 60 MG LA CAP PO SCH (20:22)
[2023-01-24] MEDS: ROSUVASTATIN CALCIUM 5 MG TAB PO SCH (20:22)
[2023-01-24 20:35] LABS: Adenovirus F 40/41 PCR Not Detected (NotDetected); Astrovirus PCR Not Detected (NotDetected); Campylobacter PCR Not Detected (NotDetected); Cryptosporidium PCR Not Detected (NotDetected); Cyclospora cayetanensis PCR Not Detected (NotDetected); Entamoeba histolytica PCR Not Detected (NotDetected); Enteroaggregative E.coli(EAEC) Not Detected (NotDetected); Enteropathogenic E.coli (EPEC) Not Detected (NotDetected); Enterotoxigenic E.coli (ETEC) Not Detected (NotDetected); Giardia lamblia PCR Not Detected (NotDetected); Norovirus GI/GII PCR Not Detected (NotDetected); Plesiomonas shigelloides PCR Not Detected (NotDetected); Rotavirus A PCR Not Detected (NotDetected); Salmonella PCR Not Detected (NotDetected); Sapovirus PCR Not Detected (NotDetected); Shiga-like Toxin E.coli (STEC) Not Detected (NotDetected); Shigella/Enteroinvasive E.coli Not Detected (NotDetected); Vibrio cholerae PCR Not Detected (NotDetected); Vibrio species PCR Not Detected (NotDetected); Yersinia enterocolitica PCR Not Detected (NotDetected)
[2023-01-24] MEDS ORDERED: STOP CLINOLIPID SCH (22:00)
[2023-01-25] MEDS: ACETAMINOPHEN 500 MG TAB PO SCH ×3 (00:29→16:27)
[2023-01-25] MEDS: PIPERACILLIN/TAZOBACTAM 4.5 GM in DEXTROSE 5% 100 ML IV SCH ×3 (00:30→16:27)
[2023-01-25] MEDS: MoRPHine SULFATE 2 MG/ML CARP IV PRN ×3 (03:40→20:32)
[2023-01-25] MEDS: traMADol HCL 50 MG TABLET PO PRN ×3 (04:47→22:23)
[2023-01-25 06:20] LABS: Basophils # (auto) 0.04 K/uL (0-0.2); Basophils % (auto) 0.7 %; Eosinophils # (auto) 0.25 K/uL (0-0.50); Eosinophils % (auto) 4.3 %; Hematocrit (blood only) 28.7 % (42.0-52.0); Hemoglobin 9.3 g/dl (14.0-18.0); Immature Granulocytes # (auto) 0.09 K/uL (0.01-0.20); Immature Granulocytes % (auto) 1.6 %; Lymphocytes # (auto) 0.27 K/uL (1.2-3.4); Lymphocytes % (auto) 4.7 %; Mean Corpuscular Hemoglobin 30.8 pg (25.0-34.0); Mean Corpuscular Hgb Conc 32.4 g/dL (32.0-36.0); Mean Platelet Volume 9.5 fL (9.4-12.4); Monocytes # (auto) 0.74 K/uL (0.11-0.59); Monocytes % (auto) 12.8 %; Neutrophils # (auto) 4.38 K/uL (1.40-6.50); Neutrophils % (auto) 75.9 %; Platelet Count 339 K/uL (130-400); RDW Coefficient of Variation 13.4 % (11.5-14.5); Red Blood Count 3.02 M/uL (4.70-6.10); White Blood Count 5.77 K/ul (4.8-10.8)
[2023-01-25 07:22] LABS: Albumin Globulin Ratio 0.8 (0.9-2); Albumin Level 2.7 gm/dl (3.4-5.0); Bilirubin,Total 0.4 mg/dl (0.2-1.0); Calcium 8.6 mg/dl (8.6-10.3); Creatinine Clr Calc Pharmacy 97.1 ml/min; Est GFR (African American) 105.5 ml/min; Globulin 3.2 gm/dl (2.5-4.0); Magnesium 1.6 mg/dl (1.7-2.4); Phosphorus 3.5 mg/dl (2.5-4.9); Potassium 3.6 mmol/L (3.5-5.1); Total Protein 5.9 gm/dl (6.0-8.3)
[2023-01-25] MEDS ORDERED: MAGNESIUM SULFATE / D5W 1 GM/100 ML BAG IV ONE (07:30)
[2023-01-25] MEDS: valACYclovir HCL 500 MG TABLET PO SCH (08:07)
[2023-01-25] MEDS: CYANOCOBALAMIN (B-12) 500 MCG TABLET PO SCH (08:07)
[2023-01-25] MEDS: FOLIC ACID 1 MG TAB PO SCH (08:08)
[2023-01-25] MEDS: PANTOprazole 40 MG TAB PO SCH (08:08)
[2023-01-25] MEDS: busPIRone 5 MG TAB PO SCH ×2 (08:08→20:33)
[2023-01-25] MEDS: FLUTICASONE FUROATE 100MCG 14 PUFFS/INHALER INH SCH (08:08)
--- NOTE | 2023-01-25 10:09 | Surgery Progress Note ---
Date of Service January 25, 2023 Assessment & Plan (1) Diverticulitis: Plan: on TPN some clears sparingly con't IV abx Admission and Anticipated Discharge Date Admission Date: January 22, 2023 Subjective feels better less pain afebrile hungry passing liquid stool Review of Systems Constitutional: no fever and no chills Respiratory: no cough and no dyspnea Cardiovascular: no chest pain Gastrointestinal: + abdominal pain and + change in bowel habits; no nausea and no vomiting Genitourinary: no dysuria Musculoskeletal: no back pain Integumentary: no problem reported Neurologic: no localized weakness and no generalized weakness Psychiatric: no behavioral changes Hematologic / Lymphatic: no easy bleeding and no easy bruising Physical Exam Constitutional: WD/WN, vitals as above Eyes: PERRL, conjunctivae normal, anicteric sclerae ENMT: external ear and nose normal, oropharynx normal Neck: trachea midline Respiratory: normal respiratory effort, lungs clear to auscultation Cardiovascular: RRR, no murmur, no edema Gastrointestinal (Abdomen): Inspection/Auscultation: abdomen normal to inspection and normal bowel sounds; abdomen not distended Percussion/Palpation: + abdomen tender and abdomen soft; no guarding and abdomen not rigid Musculoskeletal: Head/Neck/Chest: normocephalic and head atraumatic Skin: no rashes, warm and dry Results & Data Vital Signs (Past 12 Hours) Vital Signs Temp Pulse Resp BP Pulse Ox O2 Del Method 01/25/23 07:58 36.4 C L 70 20 128/80 96 Room Air
--- NOTE | 2023-01-25 10:32 | Gastroenterology Progress Note ---
Date of Service January 25, 2023 Assessment & Plan (1) Left sided abdominal pain: Plan 67 year old male with history of T2DM, dyslipidemia, asthma, HTN, PAD, carotid stenosis, TIA, GERD, fatty liver, obesity, anticoagulated on coumadin, prostate CA s/p radiation and others below admitted w/ abd pain x 1 month and dehydration. Recent colonoscopy w/ severe inflammation and stricture of the sigmoid colon, referred to general surgery for management. Radiation colitis vs diverticultis vs other Agree with IV ABX Defer diet to general surgery Primary management per general surgery No indication for endoscopic evaluation GI will sign off this for surgery should have repeat outpatient colonoscopy in 4 to 6 weeks however, I do not think that in this case surgery will be able to be avoided. Admission and Anticipated Discharge Date Admission Date: January 22, 2023 Subjective Feels better less diarrhea C. difficile was negative Physical Exam Physical Exam: General- oriented x 3, not in distress, speaks in sentences with no effort or accessory muscle use Head- atraumatic Eyes- PERRL, EOMI, anicteric ENT- oropharynx clear Neck- supple, no JVD, no adenopathy, no thyromegaly; carotids +2/2, no bruits appreciated Lungs- clear to auscultation bilaterally, no rales/wheezes Heart- normal rate, regular rhythm; no murmur, no gallop, no rub appreciated Abdomen- normal bowel sounds, nondistended, soft, mild LLQ tenderness, no masses or hepatosplenomegaly Extremities- no pretibial edema, no calf tenderness; peripheral pulses intact Neuro- alert, oriented x 3; CN 2-12 grossly intact; motor 5/5 bilaterally;sensation 100% on all extremities; no other gross focal neurologic deficits Skin- warm & dry Results & Data Vital Signs (Past 12 Hours) Vital Signs Temp Pulse Resp BP Pulse Ox O2 Del Method 01/25/23 07:58 36.4 C L 70 20 128/80 96 Room Air
--- NOTE | 2023-01-25 10:46 | Hospitalist Progress Note ---
Date of Service January 25, 2023 Assessment & Plan (1) Left sided abdominal pain: (2) ANURADHA (acute kidney injury): (3) Hypokalemia: (4) Failure of outpatient treatment: (5) Hypomagnesemia: (6) Diverticulitis: (7) Acute radiation colitis: (8) Prostate cancer: (9) HLD (hyperlipidemia): (10) DDD (degenerative disc disease), cervical: (11) Chronic alcohol use: Plan per admitting service notes with addendum: This is a 67yoM with a PMhx of prostate cancer s/p radical prostatectomy with pelvic lymph node dissection in 2020 (recently completed radiation treatments on December 30), HTN, HLD, Anxiety, Asthma, DDD, GERD, chronic alcohol use and Carotid stenosis s/p endarterectomy. He presented from his general surgeon's office for hospital admission for suspected chronic diverticulitis vs. occult mass or radiation related changes of the sigmoid colon. EPIC CT (01/08/23) and colonoscopy (01/16/23) results reviewed. Abdominal pain/chronic diverticulitis/radiation related changes of the sigmoid colon Pt completed radiation on December 30, and developed chronic abdominal pain with BRBPR Was seen in the [place] ED and had a CT scan done on 01/08 that showed a possible 12cm sigmoid colon mass that was read as "probable sigmoid carcinoma with metastatic lymphadenopathy". Pt had a colonoscopy 3 months prior that did not show any abnormalities. Colonoscopy was repeated by GI on 01/16 with biopsy of the concerning area. The repeat colonoscopy did not show a mass but showed severe inflammation and stricture. The c- scope could not pass through the area of concern, though the pt was passing gas and had been having bowel movements. GI's differential included "chronic diverticulitis, post radiation changes or occult mass". Biopsy results did not show dysplasia but showed a "hyperplastic colonic mucosa with mild inflammation". Pt was treated with PO cipro and flagyl, states he completed 6 days of it. He had his General surgery visit today for consideration of surgically removing the affected colon, and was advised to go to the hospital for IV antibiotics after being deemed to have failed outpatient treatment. Received a dose of Unasyn in the ED, will continue with IV Zosyn. IV fluids, NPO except for medications, IV zofran prn for nausea Tylenol for mild pain, continue home tramadol as needed for moderate pain, IV morphine ordered for severe pain Consult GI and General surgery 01/23 CT abd/pelvis: Severe wall thickening of the sigmoid colon, which measures up to 2.6 cm in thickness. Mild pericolonic fat stranding. Correlate for colitis. discussed with Gen Surg NPO for now hold Plavix IV Zosyn 01/24 Abdominal pain seems to be improving Continue IV Zosyn for now per general surgery, trying to avoid surgical intervention in light of recent radiation therapy Check stool for C. difficile: Negative Send for stool PCR as well 01/25 abdominal pain continues to improve continue Zosyn clear liquids Hypokalemia Potassium 2.8 on admission Received 2 bags of potassium 10mEq in the ED PO KCl 40mEq ordered NSS w/KCl 20meQ ordered @80 Repeat BMP in AM 01/23 IV and PO K replacement repeat K at 5 pm 01/24 Secondary to poor oral intake, diarrhea IV n.p.o. potassium given, now 3.6 01/25 resolved Hypomagnesemia Mag of 1.7 Repleted in the ED 01/25 IV magnesium ordered Moderate malnutrition will need PPN discussed with Pharmacist, recommend to hold off on PPN until K is normalized to prevent refeeding syndrome 01/24 PICC line placed Discussed with pharmacist, will start PPN today 01/25 tolerating PPN well ANURADHA Cr elevated at 1.6, was 1.2 about a year ago NSS w/KCl as above Hold home losartan and HCTZ Continue to monitor 01/23 crea 1.6 to 1.4 continue IV fluids 01/24 Resolved 01/25 resolved Prostate cancer- follows with urology, radiation oncology. HTN- on losartan, propanolol, nifedipine and hctz. BP on softer side. Holding losartan and HCTZ as noted above. HLD-continue home statin Asthma-continue home inhalers Anxiety- continue home buspar DDD- continue home tramadol prn Chronic alcohol use- continue home folate and thiamine. Pt states his last drink was a week ago, states he does not drink everyday anymore. Denies withdrawal symptoms if he is without alcohol for the extended periods he notes. GERD- continue home ppi Carotid stenosis- hold Plavix in case patient would need urgent surgery Diet: clear liquids DVT prophylaxis: Lovenox held in light of possible surgery SCD CODE STATUS: Full code Dispo: Lives at home with family plan of care discussed with patient in detail and at length all questions answered he is understanding, agreeable, comfortable with the plan of care Admission and Anticipated Discharge Date Admission Date: January 22, 2023 Subjective ff up for sigmoid stricture, etc seen resting in bed, comfortable states LLQ pain is improving gradually diarrhea resolving no nausea no fever/chills no other symptoms Review of Systems Review of Systems: all noted and negative except for above Physical Exam Physical Exam: General- oriented x 3, not in distress, speaks in sentences with no effort or accessory muscle use Eyes- anicteric Neck- no JVD Lungs- clear breath sounds bilaterally, no rales/wheezes Heart- normal rate, regular rhythm; no murmurs Abdomen- normal bowel sounds, nondistended, soft,mild LLQ tenderness Extremities- no pretibial edema, no calf tenderness Neuro- alert, oriented x 3; no gross focal neurologic deficits Skin- warm & dry Results & Data Results & Data Vital Signs (Past 12 Hours) Vital Signs Temp Pulse Resp BP Pulse Ox O2 Del Method 01/25/23 07:58 36.4 C L 70 20 128/80 96 Room Air all noted and reviewed including below
[2023-01-25] MEDS ORDERED: [UNRECOGNIZED DRUG - OTHER] IV SCH (16:00)
[2023-01-25] MEDS ORDERED: CENTRAL TPN IV SCH ×2 (16:00)
[2023-01-25] MEDS ORDERED: CLINOLIPID 20% IV FAT EMULSION 250 ML IV SCH (16:00)
[2023-01-25] MEDS ORDERED: [UNRECOGNIZED DRUG - OTHER] IV SCH (16:00)
[2023-01-25] MEDS: ENOXAPARIN INJ 40 MG/0.4 ML SYR SQ SCH (20:30)
[2023-01-25] MEDS: NIFEdipine EXTENDED REL 30 MG TABCR PO SCH (20:32)
[2023-01-25] MEDS: COLESTIPOL HCL 1 GM TAB PO SCH (20:33)
[2023-01-25] MEDS: ROSUVASTATIN CALCIUM 5 MG TAB PO SCH (20:33)
[2023-01-25] MEDS: PROPRANOLOL HCL 60 MG LA CAP PO SCH (20:33)
[2023-01-25] MEDS: STOP CLINOLIPID SCH (22:08)
[2023-01-26] MEDS: PIPERACILLIN/TAZOBACTAM 4.5 GM in DEXTROSE 5% 100 ML IV SCH ×3 (00:30→16:12)
[2023-01-26] MEDS: ACETAMINOPHEN 500 MG TAB PO SCH ×3 (00:31→16:13)
[2023-01-26] MEDS: traMADol HCL 50 MG TABLET PO PRN ×2 (07:20→20:37)
--- NOTE | 2023-01-26 07:39 | Surgery Progress Note ---
Date of Service January 26, 2023 Assessment & Plan (1) Diverticulitis: Plan: on TPN advance to fulls con't IV abx Admission and Anticipated Discharge Date Admission Date: January 22, 2023 Subjective improving. tolerating clears. on TPN. no n/v. positive BMs and flatus. feels hungry. no fevers Physical Exam Physical Exam: AFVSS NAD, A&Ox3 Abd soft, nondistended mild TTP in lower abdomen Results & Data Vital Signs (Past 12 Hours) Vital Signs Temp Pulse Resp BP Pulse Ox O2 Del Method 01/26/23 07:02 36.5 C 70 16 115/74 98 Room Air 01/25/23 20:22 36.6 C 94 H 18 144/82 H 98 Room Air
[2023-01-26] MEDS: FOLIC ACID 1 MG TAB PO SCH (08:04)
[2023-01-26] MEDS: valACYclovir HCL 500 MG TABLET PO SCH (08:04)
[2023-01-26] MEDS: PANTOprazole 40 MG TAB PO SCH (08:04)
[2023-01-26] MEDS: busPIRone 5 MG TAB PO SCH ×2 (08:05→20:35)
[2023-01-26] MEDS: FLUTICASONE FUROATE 100MCG 14 PUFFS/INHALER INH SCH (08:06)
[2023-01-26] MEDS: CYANOCOBALAMIN (B-12) 500 MCG TABLET PO SCH (08:06)
[2023-01-26 08:12] LABS: BUN Creatinine Ratio 11.5 (10-20); Calcium 8.7 mg/dl (8.6-10.3); Creatinine Clr Calc Pharmacy 107.1 ml/min; Est GFR (African American) 109.8 ml/min; Est GFR (Non-African American) 94.7 ml/min; Magnesium 1.6 mg/dl (1.7-2.4); Phosphorus 3.3 mg/dl (2.5-4.9); Potassium 3.7 mmol/L (3.5-5.1)
[2023-01-26] MEDS: MAGNESIUM SULFATE / D5W 1 GM/100 ML BAG IV SCH ×2 (09:26→11:26)
--- NOTE | 2023-01-26 12:37 | Hospitalist Progress Note ---
Date of Service January 26, 2023 Assessment & Plan (1) Left sided abdominal pain: (2) ANURADHA (acute kidney injury): (3) Hypokalemia: (4) Failure of outpatient treatment: (5) Hypomagnesemia: (6) Diverticulitis: (7) Acute radiation colitis: (8) Prostate cancer: (9) HLD (hyperlipidemia): (10) DDD (degenerative disc disease), cervical: (11) Chronic alcohol use: Plan per admitting service notes with addendum: This is a 67yoM with a PMhx of prostate cancer s/p radical prostatectomy with pelvic lymph node dissection in 2020 (recently completed radiation treatments on December 30), HTN, HLD, Anxiety, Asthma, DDD, GERD, chronic alcohol use and Carotid stenosis s/p endarterectomy. He presented from his general surgeon's office for hospital admission for suspected chronic diverticulitis vs. occult mass or radiation related changes of the sigmoid colon. EPIC CT (01/08/23) and colonoscopy (01/16/23) results reviewed. Abdominal pain/chronic diverticulitis/radiation related changes of the sigmoid colon Pt completed radiation on December 30, and developed chronic abdominal pain with BRBPR Was seen in the [place] ED and had a CT scan done on 01/08 that showed a possible 12cm sigmoid colon mass that was read as "probable sigmoid carcinoma with metastatic lymphadenopathy". Pt had a colonoscopy 3 months prior that did not show any abnormalities. Colonoscopy was repeated by GI on 01/16 with biopsy of the concerning area. The repeat colonoscopy did not show a mass but showed severe inflammation and stricture. The c- scope could not pass through the area of concern, though the pt was passing gas and had been having bowel movements. GI's differential included "chronic diverticulitis, post radiation changes or occult mass". Biopsy results did not show dysplasia but showed a "hyperplastic colonic mucosa with mild inflammation". Pt was treated with PO cipro and flagyl, states he completed 6 days of it. He had his General surgery visit today for consideration of surgically removing the affected colon, and was advised to go to the hospital for IV antibiotics after being deemed to have failed outpatient treatment. Received a dose of Unasyn in the ED, will continue with IV Zosyn. IV fluids, NPO except for medications, IV zofran prn for nausea Tylenol for mild pain, continue home tramadol as needed for moderate pain, IV morphine ordered for severe pain Consult GI and General surgery 01/23 CT abd/pelvis: Severe wall thickening of the sigmoid colon, which measures up to 2.6 cm in thickness. Mild pericolonic fat stranding. Correlate for colitis. discussed with Gen Surg NPO for now hold Plavix IV Zosyn 01/24 Abdominal pain seems to be improving Continue IV Zosyn for now per general surgery, trying to avoid surgical intervention in light of recent radiation therapy Check stool for C. difficile: Negative Send for stool PCR as well 01/25 abdominal pain continues to improve continue Zosyn clear liquids 01/26 improving gradually continue Zosyn advance to full iquids Hypokalemia Potassium 2.8 on admission Received 2 bags of potassium 10mEq in the ED PO KCl 40mEq ordered NSS w/KCl 20meQ ordered @80 Repeat BMP in AM 01/23 IV and PO K replacement repeat K at 5 pm 01/24 Secondary to poor oral intake, diarrhea IV n.p.o. potassium given, now 3.6 resolved Hypomagnesemia Mag of 1.7 Repleted in the ED 01/26 IV magnesium ordered Moderate malnutrition will need PPN discussed with Pharmacist, recommend to hold off on PPN until K is normalized to prevent refeeding syndrome 01/24 PICC line placed Discussed with pharmacist, will start PPN today 01/26 tolerating PPN well ANURADHA Cr elevated at 1.6, was 1.2 about a year ago NSS w/KCl as above Hold home losartan and HCTZ Continue to monitor 01/23 crea 1.6 to 1.4 continue IV fluids 01/24 Resolved 01/26 resolved Prostate cancer- follows with urology, radiation oncology. HTN- on losartan, propanolol, nifedipine and hctz. BP on softer side. Holding losartan and HCTZ as noted above. HLD-continue home statin Asthma-continue home inhalers Anxiety- continue home buspar DDD- continue home tramadol prn Chronic alcohol use- continue home folate and thiamine. Pt states his last drink was a week ago, states he does not drink everyday anymore. Denies withdrawal symptoms if he is without alcohol for the extended periods he notes. GERD- continue home ppi Carotid stenosis- hold Plavix in case patient would need urgent surgery Diet: clear liquids DVT prophylaxis: Lovenox held in light of possible surgery SCD CODE STATUS: Full code Dispo: Lives at home with family plan of care discussed with patient in detail and at length all questions answered he is understanding, agreeable, comfortable with the plan of care Admission and Anticipated Discharge Date Admission Date: January 22, 2023 Subjective Follow-up for sigmoid stricture, etc seen resting in bed, sitting up comfortable states LLQ continues to improve slowly still having loose BM, less frequent no fever/chills no other new symptoms Review of Systems Review of Systems: all noted and negative except for above Physical Exam Physical Exam: General- oriented x 2, not in distress, speaks in sentences with no effort or accessory muscle use Eyes- anicteric Neck- no JVD Lungs- clear breath sounds BL no rales/wheezing Heart- normal rate, regular rhythm; no murmurs Abdomen- normal bowel sounds, nondistended, soft, nontender Extremities- no pretibial edema, no calf tenderness Neuro- alert, oriented x 3; no gross focal neurologic deficits Skin- warm & dry Results & Data Results & Data Vital Signs (Past 12 Hours) Vital Signs Temp Pulse Resp BP Pulse Ox O2 Del Method 01/26/23 07:43 Room Air 01/26/23 07:02 36.5 C 70 16 115/74 98 Room Air all noted and reviewed including below
[2023-01-26] MEDS ORDERED: [UNRECOGNIZED DRUG - OTHER] IV SCH (16:00)
[2023-01-26] MEDS ORDERED: CLINOLIPID 20% IV FAT EMULSION 250 ML IV SCH (16:00)
[2023-01-26] MEDS ORDERED: CENTRAL TPN IV SCH (16:00)
[2023-01-26] MEDS: MoRPHine SULFATE 2 MG/ML CARP IV PRN ×2 (16:01→22:20)
[2023-01-26] MEDS: PROPRANOLOL HCL 60 MG LA CAP PO SCH (20:35)
[2023-01-26] MEDS: COLESTIPOL HCL 1 GM TAB PO SCH (20:35)
[2023-01-26] MEDS: ENOXAPARIN INJ 40 MG/0.4 ML SYR SQ SCH (20:35)
[2023-01-26] MEDS: ROSUVASTATIN CALCIUM 5 MG TAB PO SCH (20:35)
[2023-01-26] MEDS: NIFEdipine EXTENDED REL 30 MG TABCR PO SCH (20:35)
[2023-01-26] MEDS: STOP CLINOLIPID SCH (22:03)
[2023-01-27] MEDS: PIPERACILLIN/TAZOBACTAM 4.5 GM in DEXTROSE 5% 100 ML IV SCH ×3 (00:20→16:22)
[2023-01-27] MEDS: ACETAMINOPHEN 500 MG TAB PO SCH ×3 (00:22→17:46)
[2023-01-27 07:35] LABS: BUN Creatinine Ratio 13.3 (10-20); Calcium 8.7 mg/dl (8.6-10.3); Creatinine Clr Calc Pharmacy 111.3 ml/min; Est GFR (African American) 111.6 ml/min; Est GFR (Non-African American) 96.3 ml/min; Magnesium 1.7 mg/dl (1.7-2.4); Potassium 4.2 mmol/L (3.5-5.1)
[2023-01-27] MEDS: PANTOprazole 40 MG TAB PO SCH (08:20)
[2023-01-27] MEDS: traMADol HCL 50 MG TABLET PO PRN ×2 (08:20→22:03)
[2023-01-27] MEDS: FOLIC ACID 1 MG TAB PO SCH (08:20)
[2023-01-27] MEDS: CYANOCOBALAMIN (B-12) 500 MCG TABLET PO SCH (08:21)
[2023-01-27] MEDS: valACYclovir HCL 500 MG TABLET PO SCH (08:21)
[2023-01-27] MEDS: busPIRone 5 MG TAB PO SCH ×2 (08:21→20:31)
[2023-01-27] MEDS: FLUTICASONE FUROATE 100MCG 14 PUFFS/INHALER INH SCH (08:21)
--- NOTE | 2023-01-27 10:42 | Surgery Progress Note ---
Date of Service January 27, 2023 Assessment & Plan (1) Diverticulitis: Plan: afebrile, vss pain improving slowly +bowel function Plan: on TPN advance to soft diet for lunch, advised to go very slow continue IV abx (today is 4 days of IV zosyn) continue pain management as needed Discussed with Dr. Sifuentes who agrees with above. Admission and Anticipated Discharge Date Admission Date: January 22, 2023 Supervising Physician Co-Signing Physician Notes I have seen and examined the patient personally and agree with the above assessment and plan. he is slowly improving; tolerating diet; having BMs and flatus. continue IV antibiotics; advance diet as tolerated. will continue to follow. Subjective feeling slowly better, pain not as severe pain still with and after bowel movements still passing gas and liquid stool tolerated some full liquids, not eating much about 50% of tray no n,v no fevers or chills slightly worried about advancing diet and having pain with bowel movements Physical Exam Constitutional: WD/WN, vitals as above cooperative and comfortable; no acute distress and not ill appearing Respiratory: normal respiratory effort; no respiratory distress Gastrointestinal (Abdomen): Inspection/Auscultation: abdomen normal to inspection and + hypoactive bowel sounds; abdomen not distended and + abnormal bowel sounds Percussion/Palpation: + abdomen tender (Left lower abdomen on deep palpation, mild) and abdomen soft; no guarding, abdomen not rigid and abdomen not firm Skin: no rashes, warm and dry Psychiatric: A+Ox3, euthymic affect Results & Data Vital Signs (Past 12 Hours) Vital Signs Temp Pulse Resp BP Pulse Ox O2 Del Method 01/27/23 06:53 36.8 C 70 16 122/74 98 Room Air Laboratory Results 01/27/23 01/27/23 01/27/23 Range/Units 06:34 06:16 00:19 Sodium 135 L (136-145) mmol/L Potassium 4.2 (3.5-5.1) mmol/L Chloride 103 (98-107) mmol/L Carbon Dioxide 29 (21-32) mmol/L Anion Gap 3 (3-11) BUN 10 (6-23) mg/dl Creatinine 0.75 (0.6-1.4) mg/dl Est Cr Clr Drug Dosing 111.3 ml/min Est GFR ( Amer) 111.6 ml/min Est GFR (Non-Af Amer) 96.3 ml/min BUN/Creatinine Ratio 13.3 (10-20) Glucose 122 H (70-99(Fasting)) mg/dl POC Glucose 129 H 136 H (70-99) mg/dl Calcium 8.7 (8.6-10.3) mg/dl Phosphorus 3.0 (2.5-4.9) mg/dl Magnesium 1.7 (1.7-2.4) mg/dl Triglycerides 190 H (0-150) mg/dl 01/26/23 01/26/23 Range/Units 18:02 11:53 Sodium (136-145) mmol/L Potassium (3.5-5.1) mmol/L Chloride (98-107) mmol/L Carbon Dioxide (21-32) mmol/L Anion Gap (3-11) BUN (6-23) mg/dl Creatinine (0.6-1.4) mg/dl Est Cr Clr Drug Dosing ml/min Est GFR ( Amer) ml/min Est GFR (Non-Af Amer) ml/min BUN/Creatinine Ratio (10-20) Glucose (70-99(Fasting)) mg/dl POC Glucose 145 H 105 H (70-99) mg/dl Calcium (8.6-10.3) mg/dl Phosphorus (2.5-4.9) mg/dl Magnesium (1.7-2.4) mg/dl Triglycerides (0-150) mg/dl
[2023-01-27] MEDS: MoRPHine SULFATE 2 MG/ML CARP IV PRN ×2 (14:22→20:31)
[2023-01-27] MEDS ORDERED: CLINOLIPID 20% IV FAT EMULSION 250 ML IV SCH (16:00)
[2023-01-27] MEDS ORDERED: CENTRAL TPN IV SCH (16:00)
[2023-01-27] MEDS ORDERED: [UNRECOGNIZED DRUG - OTHER] IV SCH (16:00)
--- NOTE | 2023-01-27 16:37 | Hospitalist Progress Note ---
Date of Service January 27, 2023 Assessment & Plan (1) Left sided abdominal pain: (2) ANURADHA (acute kidney injury): (3) Hypokalemia: (4) Failure of outpatient treatment: (5) Hypomagnesemia: (6) Diverticulitis: (7) Acute radiation colitis: (8) Prostate cancer: (9) HLD (hyperlipidemia): (10) DDD (degenerative disc disease), cervical: (11) Chronic alcohol use: Plan per admitting service notes with addendum: This is a 67yoM with a PMhx of prostate cancer s/p radical prostatectomy with pelvic lymph node dissection in 2020 (recently completed radiation treatments on December 30), HTN, HLD, Anxiety, Asthma, DDD, GERD, chronic alcohol use and Carotid stenosis s/p endarterectomy. He presented from his general surgeon's office for hospital admission for suspected chronic diverticulitis vs. occult mass or radiation related changes of the sigmoid colon. EPIC CT (01/08/23) and colonoscopy (01/16/23) results reviewed. Sigmoid stricture possible radiation colitis vs. diverticulitis Pt completed radiation for prostate CA on December 30, and developed chronic abdominal pain with BRBPR Was seen in the [place] ED and had a CT scan done on 01/08 that showed a possible 12cm sigmoid colon mass that was read as "probable sigmoid carcinoma with metastatic lymphadenopathy". Pt had a colonoscopy 3 months prior that did not show any abnormalities. Colonoscopy was repeated by GI on 01/16 with biopsy of the concerning area. The repeat colonoscopy did not show a mass but showed severe inflammation and stricture. The c- scope could not pass through the area of concern, though the pt was passing gas and had been having bowel movements. GI's differential included "chronic diverticulitis, post radiation changes or occult mass". Biopsy results did not show dysplasia but showed a "hyperplastic colonic mucosa with mild inflammation". Pt was treated with PO cipro and flagyl, states he completed 6 days of it. He had his General surgery visit today for consideration of surgically removing the affected colon, and was advised to go to the hospital for IV antibiotics after being deemed to have failed outpatient treatment. CT abd/pelvis: Severe wall thickening of the sigmoid colon, which measures up to 2.6 cm in thickness. Mild pericolonic fat stranding. Correlate for colitis. 01/27 improving gradually General surgery consulted- would like to avoid surgery as much as possible due to recent radiation GI also consulted given Zosyn - day #5 seems to be responding to IV abx, abdominal pain improving diet gradually advanced- now on low fiber Hypokalemia replaced Hypomagnesemia replaced Moderate malnutrition secondary to poor oral intake > 3 weeks PICC line placed tolerating PPN well ANURADHA losartan and HCTZ- held BP stable 01/27 resolved Prostate cancer- follows with urology, radiation oncology. HTN- on losartan, propanolol, nifedipine and hctz. BP on softer side. Holding losartan and HCTZ as noted above. HLD-continue home statin Asthma-continue home inhalers Anxiety- continue home buspar DDD- continue home tramadol prn Chronic alcohol use- continue home folate and thiamine. Pt states his last drink was a week ago, states he does not drink everyday anymore. Denies withdrawal symptoms if he is without alcohol for the extended periods he notes. GERD- continue home ppi Carotid stenosis- hold Plavix in case patient would need urgent surgery Diet: clear liquids DVT prophylaxis: Lovenox CODE STATUS: Full code Dispo: Anticipate discharge to home medically stable plan of care discussed with patient in detail and at length all questions answered he is understanding, agreeable, comfortable with the plan of care Admission and Anticipated Discharge Date Admission Date: January 22, 2023 Subjective ff up for sigmoid stricture, etc seen resting in bed, comfortable states LLQ pain is gradually improving appetite coming back still has some abdominal cramping with bowel movement no fever/chills no other symptoms Review of Systems Review of Systems: all noted and negative except for above Physical Exam Physical Exam: General- oriented x 3, not in distress, speaks in sentences with no effort or accessory muscle use Eyes- anicteric Neck- no JVD Lungs- clear breath sounds bilaterally Heart- normal rate, regular rhythm; no murmurs Abdomen- normal bowel sounds, nondistended, soft, mild lower quadrant tenderness Extremities- no pretibial edema, no calf tenderness Neuro- alert, oriented x 3; no gross focal neurologic deficits Skin- warm & dry Results & Data Results & Data Vital Signs (Past 12 Hours) Vital Signs Temp Pulse Resp BP Pulse Ox O2 Del Method 01/27/23 14:15 36.7 C 70 16 118/74 98 Room Air 01/27/23 06:53 36.8 C 70 16 122/74 98 Room Air all noted and reviewed including below
[2023-01-27] MEDS: ROSUVASTATIN CALCIUM 5 MG TAB PO SCH (20:31)
[2023-01-27] MEDS: PROPRANOLOL HCL 60 MG LA CAP PO SCH (20:31)
[2023-01-27] MEDS: COLESTIPOL HCL 1 GM TAB PO SCH (20:31)
[2023-01-27] MEDS: NIFEdipine EXTENDED REL 30 MG TABCR PO SCH (20:31)
[2023-01-27] MEDS: ENOXAPARIN INJ 40 MG/0.4 ML SYR SQ SCH (20:31)
[2023-01-27] MEDS: STOP CLINOLIPID SCH (22:03)
[2023-01-28] MEDS: PIPERACILLIN/TAZOBACTAM 4.5 GM in DEXTROSE 5% 100 ML IV SCH ×2 (00:25→09:04)
[2023-01-28] MEDS: ACETAMINOPHEN 500 MG TAB PO SCH ×2 (00:26→08:58)
[2023-01-28] MEDS: MoRPHine SULFATE 2 MG/ML CARP IV PRN ×2 (04:33→13:13)
[2023-01-28 07:15] LABS: BUN Creatinine Ratio 19.4 (10-20); Calcium 8.8 mg/dl (8.6-10.3); Creatinine Clr Calc Pharmacy 118.4 ml/min; Est GFR (African American) 113.5 ml/min; Est GFR (Non-African American) 97.9 ml/min; Magnesium 1.8 mg/dl (1.7-2.4); Phosphorus 3.4 mg/dl (2.5-4.9); Potassium 4.2 mmol/L (3.5-5.1)
[2023-01-28] MEDS: traMADol HCL 50 MG TABLET PO PRN (07:20)
[2023-01-28] MEDS: FOLIC ACID 1 MG TAB PO SCH (08:58)
[2023-01-28] MEDS: CYANOCOBALAMIN (B-12) 500 MCG TABLET PO SCH (08:58)
[2023-01-28] MEDS: PANTOprazole 40 MG TAB PO SCH (08:59)
[2023-01-28] MEDS: busPIRone 5 MG TAB PO SCH (08:59)
[2023-01-28] MEDS: FLUTICASONE FUROATE 100MCG 14 PUFFS/INHALER INH SCH (08:59)
[2023-01-28] MEDS: valACYclovir HCL 500 MG TABLET PO SCH (08:59)
--- NOTE | 2023-01-28 10:27 | Surgery Progress Note ---
Date of Service January 28, 2023 Assessment & Plan (1) Diverticulitis: Plan: afebrile, vss pain improving slowly +bowel function Plan: on TPN continue soft diet continue IV abx while admitted (today is 5 days of IV zosyn) continue pain management as needed okay from surgical standpoint for discharge today with low fiber diet for at least 4 weeks and about 10 days of oral antibiotics, will discuss with hospitalist team will need follow-up with Dr. Sifuentes in surgery office in 2-[address] Sifuentes who agrees with above. Admission and Anticipated Discharge Date Admission Date: January 22, 2023 Subjective feeling well tolerating soft diet so far no n,v liquid stools and passing gas some cramping pain with bowel movements still Physical Exam Constitutional: WD/WN, vitals as above cooperative and comfortable; no acute distress and not ill appearing Respiratory: normal respiratory effort; no respiratory distress and no labored breathing Gastrointestinal (Abdomen): Inspection/Auscultation: abdomen normal to inspection and + abdominal surgical scar (laparoscopic scars); abdomen not distended Percussion/Palpation: + abdomen tender (very mild on deep palpation of LLQ) and abdomen soft; no guarding, abdomen not rigid and abdomen not firm Skin: no rashes, warm and dry Psychiatric: A+Ox3, euthymic affect Results & Data Vital Signs (Past 12 Hours) Vital Signs Temp Pulse Resp BP Pulse Ox O2 Del Method 01/28/23 07:08 36.6 C 69 16 123/63 98 Room Air Laboratory Results 01/28/23 01/28/23 01/27/23 Range/Units 06:20 00:28 18:12 Sodium 135 L (136-145) mmol/L Potassium 4.2 (3.5-5.1) mmol/L Chloride 103 (98-107) mmol/L Carbon Dioxide 27 (21-32) mmol/L Anion Gap 5 (3-11) BUN 14 (6-23) mg/dl Creatinine 0.72 (0.6-1.4) mg/dl Est Cr Clr Drug Dosing 118.4 ml/min Est GFR ( Amer) 113.5 ml/min Est GFR (Non-Af Amer) 97.9 ml/min BUN/Creatinine Ratio 19.4 (10-20) Glucose 116 H (70-99(Fasting)) mg/dl POC Glucose 127 H 124 H (70-99) mg/dl Calcium 8.8 (8.6-10.3) mg/dl Phosphorus 3.4 (2.5-4.9) mg/dl Magnesium 1.8 (1.7-2.4) mg/dl 01/27/23 Range/Units 12:19 Sodium (136-145) mmol/L Potassium (3.5-5.1) mmol/L Chloride (98-107) mmol/L Carbon Dioxide (21-32) mmol/L Anion Gap (3-11) BUN (6-23) mg/dl Creatinine (0.6-1.4) mg/dl Est Cr Clr Drug Dosing ml/min Est GFR ( Amer) ml/min Est GFR (Non-Af Amer) ml/min BUN/Creatinine Ratio (10-20) Glucose (70-99(Fasting)) mg/dl POC Glucose 101 H (70-99) mg/dl Calcium (8.6-10.3) mg/dl Phosphorus (2.5-4.9) mg/dl Magnesium (1.7-2.4) mg/dl
--- NOTE | 2023-01-28 14:01 | Discharge Summary ---
Date of Service January 28, 2023 Admission HPI Per Admitting Provider Pt presents with his . History obtained from both. They state that he completed radiation on December 30, and developed chronic abdominal pain with BRBPR. Presented to [facility] and had a CT abd/pelvis done on 01/08 that showed a possible 12cm sigmoid colon mass. The CT was read as "probable sigmoid carcinoma with metastatic lymphadenopathy". They note that they did not believe that as he had a colonoscopy done 3 months prior that did not show any abnormalities. He subsequently had a repeat colonoscopy that was repeated by GI on 01/16 with biopsy of the concerning area. The colonoscopy did not show a mass but showed severe inflammation and stricture. The c-scope could not pass through the area of concern, though the pt was passing gas and had been having bowel movements. They state he was prescribed cipro and flagyl which he took with no issues but was seen by General Surgery today in the outpatient setting. They state they were told that he failed outpt therapy and were advised to present to the ED for admission for IV antibiotics. Principal Diagnosis Sigmoid colitis ANURADHA Hypokalemia Hypomagnesemia Moderate malnutrition Discharge Exam Patient feels well. Appears comfortable, pleasant. Tolerating a low fiber diet. Passing gas and having small soft BM Breathing on room air, no wheezing/rhonchi/rales Heart is regular rate and rhythm Abdomen is soft, non tender Discharge Data Allergies Allergy/AdvReac Type Severity Reaction Status Date / Time niacin Allergy upset Verified 01/22/23 12:26 stomach valsartan [From Diovan] Allergy Rash Verified 01/22/23 12:26 hydrocodone AdvReac Mild GI upset Verified 01/22/23 12:26 Exdcenr-YVT-VxG Reductase AdvReac Mild MYALGIAS Verified 01/22/23 12:26 Inhibitor [Tjivmht-Myx-Icm Reductase Inhibitor] enalapril AdvReac cough Verified 01/22/23 12:26 fenofibrate AdvReac abdominal Verified 01/22/23 12:26 discomfort gemfibrozil AdvReac abdominal Verified 01/22/23 12:26 discomfort Consultations 01/22/23 11:50 ED Decision to Admit Stat 01/22/23 16:55 Consult Gastroenterology Routine Consult General Surgery Routine Ordered Studies 01/22/23 15:37 CT Abd and Pelvis [CT abd pelvis oral and IV con] Urgent Hospital Course (1) Left sided abdominal pain: (2) ANURADHA (acute kidney injury): (3) Hypokalemia: (4) Failure of outpatient treatment: (5) Hypomagnesemia: (6) Diverticulitis: (7) Acute radiation colitis: (8) Prostate cancer: (9) HLD (hyperlipidemia): (10) DDD (degenerative disc disease), cervical: (11) Chronic alcohol use: Plan Mr Chai Almonte is a 67 year old man with a PMhx of prostate cancer s/p radical prostatectomy with pelvic lymph node dissection in 2020 and recently completed radiation treatments on December 2022, history also of HTN, HLD, Anxiety, Asthma, DDD, GERD, chronic alcohol use and Carotid stenosis s/p endarterectomy. He presents from his general surgeon's office for hospital admission for suspected chronic diverticulitis vs. occult mass or radiation related changes of the sigmoid colon. Sigmoid stricture possible radiation colitis vs. diverticulitis Pt completed radiation for prostate CA on December 30, and developed chronic abdominal pain with BRBPR Was seen in the [facility] and had a CT scan done on 01/08 that showed a possible 12cm sigmoid colon mass that was read as "probable sigmoid carcinoma with metastatic lymphadenopathy". Pt had a colonoscopy 3 months prior that did not show any abnormalities. Colonoscopy was repeated by GI on 01/16 with biopsy of the concerning area. The repeat colonoscopy did not show a mass but showed severe inflammation and stricture. The c- scope could not pass through the area of concern, though the patient was passing gas and had been having bowel movements. GI's differential included "chronic diverticulitis, post radiation changes or occult mass". Biopsy results did not show dysplasia but showed a "hyperplastic colonic mucosa with mild inflammation". Pt was treated with oral ciprofloxacin and flagyl, states he completed 6 days of it. He had his General surgery visit 01/22 for consideration of surgically removing the affected colon, and was advised to go to the hospital for IV anti biotics after being deemed to have failed outpatient treatment. CT abd/pelvi 01/22/2023 Severe wall thickening of the sigmoid colon, which measures up to 2.6 cm in thickness. Mild pericolonic fat stranding. Correlate for colitis. While here, he was received 5 days of zosyn and will be on Augmentin for another 5 days after discharge to complete 10 day course. He was previously on cip rofloxacin and flagyl but complained of "metabolic taste" and difficulty swallowing these pills.. He was initially on bowel rest and diet was advanced slowly by surgery. At the time of discharge, he was tolerating a low fiber diet. He was passing gas and having small soft bowel movements. He was cleared by surgery for discharge and with plan to see his surgeon in 2-3 weeks. He received PPN while here for malnutrition and electrolyte derangements. Hypokalemia resolved Hypomagnesemia resolved Moderate malnutrition secondary to poor oral intake > 3 weeks received PPN while here. Tolerating a low fiber diet at time of discharge ANURADHA -Cr normalized. HCTZ continued to be held, BP has been normal off this medication. Patient will follow up with his PCP to determine if it should be restarted Total Time Total Time Spent Total Time Spent (In Minutes): 35 Discharge Plan Discharge Items Patient Disposition: Home - Self-Care Reason For Visit: ABDOMINAL PAIN/CHRONIC DIVERTICULITIS Discharge Diagnosis: Sigmoid colitis Condition on Discharge: Fair Activity: Resume your previous activity Non-emergency contact: Primary Care Provider Call non-emergency contact if: you have any medication questions Follow-up/Referrals: Ankur Sifuentes MD [Physician] - (follow-up 2-3 weeks from hospital discharge) Ryan Woods PA-C [Primary Care Provider] - Diet: Low Fiber Diet Comment: Low fiber for next 4 weeks Addtl Attending Provider Instructions: Please adhere to a low fiber diet for the next 4 weeks Please follow up with Dr Sifuentes You were placed on zosyn (IV) in the hospital for 5 days and at discharge will be on Augmentin for another 5 days. If you have worsening abdominal pain, nausea/vomiting, fever/chills, please call your doctor or return to ER Your Hydrochlorothiazide (HCTZ) which you take for blood pressure was held here due to dehydration. Your blood pressure has been controlled off this medication. Please follow up with your primary care doctor in 2 weeks to decide if this medicine should be resumed Pending Studies at Discharge: No Stand-Alone Forms: [facility] [employer] Surgical, Smoking Cessation Medications and DC Order Prescriptions: New amoxicillin-pot clavulanate 875-125 mg tablet 1 tab PO BID Qty: 10 0RF acetaminophen [Tylenol Extra Strength] 500 mg Tablet 1,000 mg PO Q8H PRN (Reason: pain) 4 Days Qty: 30 0RF Continued mecobalamin (vitamin B12) 1,000 mcg tablet,chewable 1,000 mcg PO QAM albuterol sulfate [Ventolin HFA] 90 mcg/actuation HFA aerosol inhaler 2 puff inhalation Q4H PRN (Reason: sob) tramadol 50 mg tablet 50 mg PO Q6H PRN (Reason: Pain) nifedipine 90 mg tablet extended release 90 mg PO HS Flovent HFA 110 mcg/actuation HFA aerosol inhaler 1 puff inhalation Q12H buspirone 10 mg tablet 10 mg PO BID loratadine 10 mg capsule 10 mg PO DAILY PRN (Reason: Allergy Symptoms) calcium carbonate 500 mg calcium (1,250 mg) tablet 500 mg PO QAM clopidogrel [Plavix] 75 mg tablet 75 mg PO QAM colestipol 1 gram tablet 1 g PO HS ezetimibe [Zetia] 10 mg tablet 10 mg PO HS omega-3 fatty acids [Fish Oil Concentrate] 1,000 mg capsule 1,000 mg PO QAM lansoprazole [Prevacid] 30 mg capsule,delayed release(DR/EC) 30 mg PO QAM losartan [Cozaar] 100 mg tablet 100 mg PO QAM rosuvastatin [Crestor] 5 mg tablet 5 mg PO HS valacyclovir [Valtrex] 500 mg tablet 500 mg PO QAM folic acid 1 mg tablet 1 mg PO QAM propranolol 120 mg Capsule,Extended Release 24hr 120 mg PO HS docusate sodium [Colace] 100 mg capsule 100 mg PO BID Qty: 60 0RF Rx Instructions: Take twice daily for 2 weeks, then as needed for constipation. Discontinued metronidazole 500 mg tablet 500 mg PO BID ciprofloxacin HCl 500 mg tablet 500 mg PO BID hydrochlorothiazide 25 mg tablet 25 mg PO QAM Discharge Orders: Discharge Order (Routine); Ordered 01/28/23 Ordered By: Deuce Fajardo Admission Data Admit Date/Time: 01/22/23 13:00 Attending Provider: Deuce Fajardo Admit Provider: Deisy Mckoy Primary Care Provider: Ryan Woods Other Providers: Deisy Mckoy ; Jose E Rivas ; Darrion Ramirez ; Alex Osborn
== END 2023-01-28 18:05 | disposition home or self-care (01) | DRG 394 ==
LOC: ED 11:03 → SUATTDRO 13:00 → EDINP 13:00 → 3N 17:26
DX: E87.6 Hypokalemia; Z88.5 Allergy status to narcotic agent; E44.0 Moderate protein-calorie malnutrition; E83.42 Hypomagnesemia; M50.30 Other cervical disc degeneration, unspecified cervical region; K21.9 Gastro-esophageal reflux disease without esophagitis; K76.0 Fatty (change of) liver, not elsewhere classified; J45.909 Unspecified asthma, uncomplicated; E78.5 Hyperlipidemia, unspecified; Z68.30 Body mass index [BMI] 30.0-30.9, adult; F10.90 Alcohol use, unspecified, uncomplicated; N17.9 Acute kidney failure, unspecified; F41.9 Anxiety disorder, unspecified; Z87.891 Personal history of nicotine dependence; I10 Essential (primary) hypertension; Z88.8 Allergy status to other drugs, medicaments and biological substances; Z79.891 Long term (current) use of opiate analgesic; Z79.02 Long term (current) use of antithrombotics/antiplatelets; E66.9 Obesity, unspecified; M19.90 Unspecified osteoarthritis, unspecified site; K57.32 Diverticulitis of large intestine without perforation or abscess without bleeding; K52.0 Gastroenteritis and colitis due to radiation; Z79.899 Other long term (current) drug therapy; K56.609 Unspecified intestinal obstruction, unspecified as to partial versus complete obstruction; Y84.2 Radiological procedure and radiotherapy as the cause of abnormal reaction of the patient, or of later complication, without mention of misadventure at the time of the procedure; Z20.822 Contact with and (suspected) exposure to COVID-19; Z85.46 Personal history of malignant neoplasm of prostate; Z86.73 Personal history of transient ischemic attack (TIA), and cerebral infarction without residual deficits

== ENCOUNTER 2023-02-06 13:45 | Inpatient (IN) ==
[2023-02-06 16:02] LABS: Basophils # (auto) 0.06 K/uL (0-0.2); Basophils % (auto) 0.6 %; Eosinophils % (auto) 1.9 %; Hemoglobin 12.7 g/dl (14.0-18.0); Immature Granulocytes # (auto) 0.19 K/uL (0.01-0.20); Immature Granulocytes % (auto) 1.8 %; Lymphocytes # (auto) 0.51 K/uL (1.2-3.4); Mean Corpuscular Hemoglobin 30.5 pg (25.0-34.0); Mean Corpuscular Hgb Conc 33.4 g/dL (32.0-36.0); Mean Corpuscular Volume 91.3 fL (80.0-100.0); Mean Platelet Volume 9.6 fL (9.4-12.4); Monocytes # (auto) 1.14 K/uL (0.11-0.59); Monocytes % (auto) 11.1 %; Neutrophils # (auto) 8.18 K/uL (1.40-6.50); Neutrophils % (auto) 79.6 %; Platelet Count 521 K/uL (130-400); RDW Coefficient of Variation 13.3 % (11.5-14.5); Red Blood Count 4.16 M/uL (4.70-6.10); White Blood Count 10.28 K/ul (4.8-10.8)
[2023-02-06 16:12] LABS: Alanine Aminotransferase 34 U/L (7-52); Albumin Globulin Ratio 0.9 (0.9-2); Albumin Level 3.8 gm/dl (3.4-5.0); Alkaline Phosphatase 105 U/L (34-104); Anion Gap 8 (3-11); Aspartate Aminotransferase 29 U/L (13-39); BUN Creatinine Ratio 9.6 (10-20); Bilirubin,Total 0.5 mg/dl (0.2-1.0); Blood Urea Nitrogen 9 mg/dl (6-23); Calcium 9.8 mg/dl (8.6-10.3); Carbon Dioxide 27 mmol/L (21-32); Chloride 102 mmol/L (98-107); Est GFR (African American) 98.2 ml/min; Est GFR (Non-African American) 84.7 ml/min; Globulin 4.1 gm/dl (2.5-4.0); Glucose 114 mg/dl (70-99(Fasting)); Lipase 28 U/L (11-82); Potassium 3.6 mmol/L (3.5-5.1); Sodium 137 mmol/L (136-145); Total Protein 7.9 gm/dl (6.0-8.3)
--- NOTE | 2023-02-06 17:27 | Emergency Department Note ---
Impression & Plan Lower abdominal pain, Diverticulitis, Colon stricture, Failure of outpatient treatment ED Provider Note NAME: MARIAN ELAINE AGE: 67 SEX: M : 1955 ARRIVES VIA: Walk-In INFORMANT: [Patient] ED PROVIDER(S): [Jacob Patel MD] CHIEF COMPLAINT: Abdominal pain HISTORY OF PRESENT ILLNESS: Recent admit documentation.... While here, he was received 5 days of zosyn and will be on Augmentin for another 5 days after discharge to complete 10 day course. He was previously on ciprofl oxacin and flagyl but complained of "metabolic taste" and difficulty swallowing these pills.. He was initially on bowel rest and diet was advanced slowly by surgery. At the time of discharge, he was tolerating a low fiber diet. He was passing gas and having small soft bowel movements. He was cleared by surgery for discharge and with plan to see his surgeon in 2-3 weeks. He received PPN while here for malnutrition and electrolyte derangements. The patient is a 67-year-old male who has known diverticulitis and a colon stricture. He was in our hospital and discharged on the , 9 days ago. He was doing well on his IV Zosyn. He was discharged on Augmentin. Since leaving the hospital, the patient has steadily worsened. His pain has returned, he is having more more difficulty and he thinks the Augmentin is not working well enough. He saw his surgeon today, Dr. Sifuentes. He was referred to the ER for IV antibiotic therapy and hospitalization/admission. He is not to have surgery on this area of concern for at least 6 weeks. There has been no fever, no cough or congestion. He is moving his bowels, he is making urine. He states his abdominal pain worsens whenever he needs to have a bowel movement. It seems to improve after the movement. PMHx/PSHx: See Below SOCIAL HISTORY: See Below. PHYSICAL EXAM: GENERAL: Patient is in no acute distress. HEENT: No acute trauma, normocephalic atraumatic, mucous membranes moist, no nasal congestion. NECK: No stridor, no adenopathy, no meningismus, trachea is midline. LUNGS: Clear to auscultation bilaterally, no wheeze, no rhonchi, breath sounds equal. HEART: Without murmurs gallops or rubs, regular rate and rhythm. ABDOMEN: Soft, mildly tender in the lower abdomen bilaterally, no peritonitis. EXTREMITIES: No cyanosis or edema, full range of motion of all the joints without pain or difficulty, no signs for acute trauma. NEUROLOGIC: Oriented x 3, no acute motor or sensory deficits, no focal weakness. SKIN: No rash, no jaundice, no diaphoresis. DIFFERENTIAL DIAGNOSIS: Fistula, abscess, stricture, diverticulitis, failed outpatient treatment, among others. EMERGENCY DEPARTMENT COURSE/PROCEDURES: Prior/Outside records reviewed: Recent discharge summary. MEDICAL DECISION MAKING: There is no leukocytosis. The patient is anemic but this appears baseline looking back at previous testing. Platelet count somewhat elevated at 521. No renal failure or significant electrolyte abnormality. No concerning liver enzyme elevation. No evidence for pancreatitis. Urinalysis showed some contamination, no infection. COVID test returned negative. Abdominal and pelvis CT shows a colonic stricture with some inflammation consistent with mass or diverticulitis or a combination of both. No abscess or free air documented. On exam, the patient was tender in the lower abdomen. He was not febrile. The patient received IV saline for hydration. He was given IV Zosyn as antibiotic coverage. He received IV morphine and IV Zofran. The patient was sent to the ED for hospitalization. He requires IV antibiotic therapy for his diverticulitis. He has failed outpatient treatment with Augmentin. I did speak with the patient and case management, the on-call hospitalist was consulted. DISPOSITION: Patient's presentation and findings warrant a hospital stay. Past Med/Surg History Medical History Acid reflux Well controlled and stable Anxiety Asthma Uses albuterol PRN inh 2-3xwk on avg Breathing stable Barretts esophagus Stable Carotid stenosis [facility] Vascular Surgery monitoring- Dr. Anderson Chua S/p left CEA - 2012 (<50% stenosis to left ICA) Right ICA 50-69% stenosis per 05/28/2021 carotid doppler Chronic alcohol use Chronic anticoagulation DDD (degenerative disc disease), cervical Encounter for pre-operative examination Fatty liver History of COVID-19 09/2020; sob, cough, fever, body aches, chills; fully recovered History of TIA (transient ischemic attack) 2012 per records Hypercholesteremia Hypertension Lumbar stenosis with neurogenic claudication PAD (peripheral artery disease) Prediabetes Prostate cancer S/p prostatectomy 05/2021 Surgical History H/O adenoidectomy History of endarterectomy Thromboendarterectomy , neck Lt 2012 History of esophagogastroduodenoscopy History of lumbar fusion lumbar hemilaminectomy X 2 History of prostate biopsy Hx of cholecystectomy Hx of colonoscopy Hx of tonsillectomy Family History Father , 53yo Heart disease Brother Heart disease Status post cardiac surgery Smoker Mother , 62yo Bowel obstruction Sister Accident Sister Diabetes Sister Stroke Daughter No problems noted. 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: No Beliefs That Will Affect Care: None marital status: Current Living Situation: Spouse current occupational status: employed 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 Feels Safe at Home: Yes Safety Concerns: Feels Safe At This Time Diet: regular caffeine: No during the past year weight has: remained stable Assistive Devices: None Allergies Allergies Allergy/AdvReac Type Severity Reaction Status Date / Time valsartan [From Diovan] Allergy Intermediate Rash Verified 02/06/23 19:14 simvastatin AdvReac Severe ELEVATED Verified 02/06/23 19:14 LIVER FUNCTION TESTS enalapril AdvReac Intermediate cough Verified 02/06/23 19:14 fenofibrate AdvReac Intermediate abdominal Verified 02/06/23 19:14 discomfort gemfibrozil AdvReac Intermediate abdominal Verified 02/06/23 19:14 discomfort hydrocodone AdvReac Intermediate GI upset Verified 02/06/23 19:14 niacin AdvReac Intermediate upset Verified 02/06/23 19:14 stomach Bsnmjtn-PMV-QtA Reductase AdvReac Intermediate MYALGIAS Verified 02/06/23 19:14 Inhibitor [Yxvhzgb-Zvm-Tis Reductase Inhibitor] Home Meds Home Medications Medication Instructions Recorded Confirmed clopidogrel 75 mg tablet (Plavix) 75 mg PO QAM 11/27/20 02/06/23 colestipol 1 gram tablet 1 g PO HS 11/27/20 02/06/23 ezetimibe 10 mg tablet (Zetia) 10 mg PO HS 11/27/20 02/06/23 lansoprazole 30 mg capsule,delayed 30 mg PO DAILYBB 11/27/20 02/06/23 release (Prevacid) losartan 100 mg tablet (Cozaar) 100 mg PO QAM 11/27/20 02/06/23 valacyclovir 500 mg tablet 500 mg PO QAM 11/27/20 02/06/23 (Valtrex) albuterol sulfate 90 mcg/actuation 2 puff inhalation Q4H PRN 04/03/21 02/06/23 aerosol inhaler (Ventolin HFA) Shortness Of Breath buspirone 10 mg tablet 10 mg PO BID 04/03/21 02/06/23 fluticasone propionate 110 1 puff inhalation Q12H PRN 04/03/21 02/06/23 mcg/actuation HFA aerosol inhaler Shortness Of Breath Or Wheezing (Flovent HFA) loratadine 10 mg capsule 10 mg PO DAILY PRN Allergy Symptoms 04/03/21 02/06/23 nifedipine 90 mg tablet,extended 90 mg PO QAM 04/03/21 02/06/23 release tramadol 50 mg tablet 50 mg PO Q6H PRN Pain 04/03/21 02/06/23 propranolol 120 mg 120 mg PO HS 05/08/21 02/06/23 capsule,extended release 24 hr folic acid 1 mg tablet 1 mg PO QAM 01/22/23 02/06/23 amoxicillin 875 mg-potassium 1 tab PO BID 02/06/23 02/06/23 clavulanate 125 mg tablet cyanocobalamin (vitamin B-12) 1,000 mcg PO QAM 02/06/23 02/06/23 1,000 mcg tablet omega-3 fatty acids 1,000 mg 2,000 mg PO DAILY 02/06/23 02/06/23 capsule ondansetron HCl 8 mg tablet 8 mg PO Q8H PRN NAUSEA/VOMITING 02/06/23 02/06/23 polyethylene glycol 3350 17 17 g PO DAILY PRN Constipation 02/06/23 02/06/23 gram/dose oral powder (Miralax) rosuvastatin 20 mg tablet 20 mg PO DAILY 02/06/23 02/06/23 thiamine mononitrate (vit B1) 100 100 mg PO QAM 02/06/23 02/06/23 mg tablet Results & Data (ED) Vital Signs Vital Signs - 24 hr 02/06/23 13:57 02/06/23 18:46 Temperature 36.8 C Temperature Source Temporal Artery Scan Pulse Rate 106 H 88 Respiratory Rate 18 Respiratory Effort / Characteristics Non-Labored Respiratory Depth Normal Blood Pressure 120/85 Blood Pressure Mean 96 Pulse Oximetry 97 Oxygen Delivery Method Room Air Sepsis Recent Fever Within 48 Hours No Sepsis New/Unexplained Change in Mental Status No Sepsis Action Taken by Nursing No Action Required Home Medications Current Medication List: was personally reviewed by me Laboratory Data Attestation: I reviewed the patient's lab results. 02/06/23 15:37 02/06/23 15:37 Lab Results 02/06/23 02/06/23 02/06/23 Range/Units 15:37 15:37 18:35 WBC 10.28 (4.8-10.8) K/ul RBC 4.16 L (4.70-6.10) M/uL Hgb 12.7 L (14.0-18.0) g/dl Hct 38.0 L (42.0-52.0) % MCV 91.3 (80.0-100.0) fL MCH 30.5 (25.0-34.0) pg MCHC 33.4 (32.0-36.0) g/dL RDW Std Deviation 45.0 (36.4-46.3) fL RDW Coeff of Paulette 13.3 (11.5-14.5) % Plt Count 521 H (130-400) K/uL MPV 9.6 (9.4-12.4) fL Immature Gran % (Auto) 1.8 % Neut % (Auto) 79.6 % Lymph % (Auto) 5.0 % [place] % (Auto) 11.1 % Eos % (Auto) 1.9 % Baso % (Auto) 0.6 % Neut # (Auto) 8.18 H (1.40-6.50) K/uL Lymph # (Auto) 0.51 L (1.2-3.4) K/uL [place] # (Auto) 1.14 H (0.11-0.59) K/uL Eos # (Auto) 0.20 (0-0.50) K/uL Baso # (Auto) 0.06 (0-0.2) K/uL Immature Gran # (Auto) 0.19 (0.01-0.20) K/uL Sodium 137 (136-145) mmol/L Potassium 3.6 (3.5-5.1) mmol/L Chloride 102 (98-107) mmol/L Carbon Dioxide 27 (21-32) mmol/L Anion Gap 8 (3-11) BUN 9 (6-23) mg/dl Creatinine 0.94 (0.6-1.4) mg/dl Est Cr Clr Drug Dosing Not Reportable Est GFR ( Amer) 98.2 ml/min Est GFR (Non-Af Amer) 84.7 ml/min BUN/Creatinine Ratio 9.6 L (10-20) Glucose 114 H (70-99(Fasting)) mg/dl Calcium 9.8 (8.6-10.3) mg/dl Total Bilirubin 0.5 (0.2-1.0) mg/dl AST 29 (13-39) U/L ALT 34 (7-52) U/L Alkaline Phosphatase 105 H (34-104) U/L Total Protein 7.9 (6.0-8.3) gm/dl Albumin 3.8 (3.4-5.0) gm/dl Globulin 4.1 H (2.5-4.0) gm/dl Albumin/Globulin Ratio 0.9 (0.9-2) Lipase 28 (11-82) U/L SARS-CoV-2, RNA, NAAT NEGATIVE (NEGATIVE) Administered Medications Discontinued Medications Piperacillin Sod/Tazobactam Sod (Zosyn) 4.5 gm in 120 mls @ 240 mls/hr IV NOW ONE Stop: 02/06/23 18:40 Last Infusion: 02/06/23 21:24 Dose: 0 mls/hr Documented By: Admin: 02/06/23 19:52 Dose: 240 mls/hr Documented By: RUPESH Sodium Chloride (Nss 1000ml) 500 mls @ 999 mls/hr IV .Q31M ONE Stop: 02/06/23 18:42 Last Infusion: 02/06/23 21:25 Dose: 0 mls/hr Documented By: Admin: 02/06/23 19:52 Dose: 999 mls/hr Documented By: RUPESH Ioversol (Optiray 320 100ml) 94 ml IV ONCE ONE Stop: 02/06/23 19:24 Last Admin: 02/06/23 19:24 Dose: 94 ml Documented By: BOROKE Morphine Sulfate (Morphine Sulfate 4 Mg/Ml 1 Ml Carp\\Vial) 4 mg IV NOW STA Stop: 02/06/23 18:12 Last Admin: 02/06/23 18:29 Dose: 4 mg Documented By: Ondansetron HCl (Ondansetron Inj 2 Mg/Ml 2 Ml Vial) 4 mg IV NOW STA Stop: 02/06/23 18:12 Last Admin: 02/06/23 18:29 Dose: 4 mg Documented By: Imaging Data Radiologist's Impression: Abdomen/Pelvis CT 02/06/23 17:30 Exam(s): CT ABDOMEN + PELVIS With Contrast IV Amt: 94ml EXAM: CT Abdomen and Pelvis With Intravenous Contrast CLINICAL HISTORY: Reason for exam: diverticulitis. TECHNIQUE: Axial computed tomography images of the abdomen and pelvis with intravenous contrast. CTDI is 24.2 mGy and DLP is 1296.77 mGy-cm. Automated exposure control was utilized for the study. A dose lowering technique was utilized adhering to the principles of ALARA. CONTRAST: Patient received 94ml of IV contrast COMPARISON: CT abdomen/pelvis on 01/22/2023 FINDINGS: Lung bases: Unremarkable. No mass. No consolidation. Heart: Coronary artery calcifications. ABDOMEN: Liver: Unremarkable. No mass. Gallbladder and bile ducts: Prior cholecystectomy. Probable postcholecystectomy ductal ectasia. Pancreas: Unremarkable. No mass. No ductal dilation. Spleen: Unremarkable. No splenomegaly. Adrenals: Unremarkable. No mass. Kidneys and ureters: Nonspecific bilateral perinephric fat stranding. Small right renal cyst. No hydronephrosis or obstructing stone. Stomach and bowel: Diverticulosis. Wall thickening and fat stranding involving the sigmoid colon, concerning for acute diverticulitis versus neoplasm. Further evaluation could be performed with colonoscopy during follow up if clinically indicated. Evaluation of the stomach is limited by underdistention. No small bowel obstruction. PELVIS: Appendix: Normal appendix. Bladder: Bladder wall thickening is concerning for active infiltrate changes versus cystitis. Please correlate with urinalysis. Reproductive: Unremarkable as visualized. ABDOMEN and PELVIS: Intraperitoneal space: Unremarkable. No free air. No significant fluid collection. Bones/joints: Postsurgical changes at L4-5. Degenerative changes of the spine. No acute fracture. No dislocation. Soft tissues: Small fat-containing umbilical hernia. Vasculature: Atherosclerotic changes of the vasculature. No abdominal aortic aneurysm or dissection. Severe stenoses in the common iliac arteries. Lymph nodes: Mildly prominent pericolonic lymph nodes. IMPRESSION: 1. Diverticulosis. Wall thickening and fat stranding involving the sigmoid colon, concerning for acute diverticulitis versus neoplasm. Further evaluation could be performed with colonoscopy during follow up. Mildly prominent pericolonic lymph nodes raises concern for colonic neoplasm and possible papa metastases. 2. Bladder wall thickening is concerning for active infiltrate changes versus cystitis. Please correlate with urinalysis. Electronically signed by: Viktoria Funk M.D. 02/06/23 19:57 PM Discharge Plan Visit Data Chief Complaint: Referred by Doctor Stated Complaint: DIVERTICULITIS,WAS IN RECENTLY,DOC REF ED Provider: Jacob Patel Discharge Problem: Lower abdominal pain, Diverticulitis, Colon stricture, Failure of outpatient treatment Patient Disposition: Admitted As Inpatient Condition: Fair Discharge Instructions Interventions: ED Discharge Assessment Last Done: 02/06/23 21:37
[2023-02-06] MEDS ORDERED: ONDANSETRON INJ 2 MG/ML 2 ML VIAL IV STA (18:11)
[2023-02-06] MEDS ORDERED: MoRPHine SULFATE 4 MG/ML 1 ML CARP\\VIAL IV STA (18:11)
[2023-02-06] MEDS ORDERED: PIPERACILLIN/TAZOBACTAM 4.5 GM/120 ML BAG IV ONE (18:11)
[2023-02-06] MEDS ORDERED: MoRPHine SULFATE 2 MG/ML CARP IV PRN (18:11)
[2023-02-06] MEDS ORDERED: SODIUM CHLORIDE 0.9% 1000ML 500 ML IV ONE (18:12)
[2023-02-06] MEDS ORDERED: OPTIRAY 320 100ml IV ONE (19:23)
--- NOTE | 2023-02-06 19:58 | CT Scan Report ---
Exam(s): CT ABDOMEN + PELVIS With Contrast IV Amt: 94ml EXAM: CT Abdomen and Pelvis With Intravenous Contrast CLINICAL HISTORY: Reason for exam: diverticulitis. TECHNIQUE: Axial computed tomography images of the abdomen and pelvis with intravenous contrast. CTDI is 24.2 mGy and DLP is 1296.77 mGy-cm. Automated exposure control was utilized for the study. A dose lowering technique was utilized adhering to the principles of ALARA. CONTRAST: Patient received 94ml of IV contrast COMPARISON: CT abdomen/pelvis on 01/22/2023 FINDINGS: Lung bases: Unremarkable. No mass. No consolidation. Heart: Coronary artery calcifications. ABDOMEN: Liver: Unremarkable. No mass. Gallbladder and bile ducts: Prior cholecystectomy. Probable postcholecystectomy ductal ectasia. Pancreas: Unremarkable. No mass. No ductal dilation. Spleen: Unremarkable. No splenomegaly. Adrenals: Unremarkable. No mass. Kidneys and ureters: Nonspecific bilateral perinephric fat stranding. Small right renal cyst. No hydronephrosis or obstructing stone. Stomach and bowel: Diverticulosis. Wall thickening and fat stranding involving the sigmoid colon, concerning for acute diverticulitis versus neoplasm. Further evaluation could be performed with colonoscopy during follow up if clinically indicated. Evaluation of the stomach is limited by underdistention. No small bowel obstruction. PELVIS: Appendix: Normal appendix. Bladder: Bladder wall thickening is concerning for active infiltrate changes versus cystitis. Please correlate with urinalysis. Reproductive: Unremarkable as visualized. ABDOMEN and PELVIS: Intraperitoneal space: Unremarkable. No free air. No significant fluid collection. Bones/joints: Postsurgical changes at L4-5. Degenerative changes of the spine. No acute fracture. No dislocation. Soft tissues: Small fat-containing umbilical hernia. Vasculature: Atherosclerotic changes of the vasculature. No abdominal aortic aneurysm or dissection. Severe stenoses in the common iliac arteries. Lymph nodes: Mildly prominent pericolonic lymph nodes. IMPRESSION: 1. Diverticulosis. Wall thickening and fat stranding involving the sigmoid colon, concerning for acute diverticulitis versus neoplasm. Further evaluation could be performed with colonoscopy during follow up. Mildly prominent pericolonic lymph nodes raises concern for colonic neoplasm and possible papa metastases. 2. Bladder wall thickening is concerning for active infiltrate changes versus cystitis. Please correlate with urinalysis. Electronically signed by: Viktoria Funk M.D. 02/06/23 19:57 PM
--- NOTE | 2023-02-06 21:22 | History & Physical Report ---
Date of Service February 06, 2023 Assessment & Plan (1) Colitis: (2) Sigmoid stricture: Plan: Admit to [facility] Patient referred to the ED by Dr. Ankur Sifuentes for evaluation of ongoing abdominal pain. 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 Prior to admission, patient underwent colonoscopy on 01/16 that did not show a mass but did show severe inflammation and stricture. The scope could not pass through the area of concern. Biopsy negative for dysplasia but showed hyperplastic colonic mucosa with mild inflammation. During admission, patient required PPN for nutritional support and he was treated with IV Zosyn. Currently afebrile, no leukocytosis CT ABD/pelvis does not show fluid collection or abscess. Resume IV Zosyn Clear liquid diet Dietitian consult for nutritional assessment --required PPN during recent admission General surgery consult (3) Hypertension: Plan: BP controlled, continue nifedipine, losartan, propanolol (4) PAD (peripheral artery disease): (5) History of endarterectomy: (6) History of TIA (transient ischemic attack): Plan: Continue Plavix, statin, Zetia DVT PROPHYLAXIS SCDs for now Patient seen in collaboration with Dr. Potts. I spent a total of 75 minutes coordinating, documenting, and providing care for this patient excluding time spent in the performance of separately billed services. This included personally reviewing all current laboratories and imaging studies, medication reconciliation, outpatient chart review, and discussion with specialists. (7) Prostate cancer: History of Present Illness Chief Complaint: Abdominal pain Primary Care Provider: Ryan Woods PA-C 67-year-old male with PMH HLD, intermittent asthma, PAD, HTN, history of TIA, s/p carotid endarterectomy, GERD, prostate cancer s/p prostatectomy and radiation, and other problems listed below who presents to the ED for evaluation of abdominal pain by referral of general surgeon. History obtained from the patient and review of outpatient PCP, general surgery, urology records. 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 Prior to admission, patient underwent colonoscopy on 01/16 that did not show a mass but did show severe inflammation and stricture. The scope could not pass through the area of concern. Biopsy negative for dysplasia but showed hyperplastic colonic mucosa with mild inflammation. During admission, patient required PPN for nutritional support and he was treated with IV Zosyn. On the day of discharge, patient was tolerating regular diet and having soft bowel movements. He was discharged home on Augmentin. Patient reports the following day, abdominal pain returned. He has had a very poor appetite. Pain is in the LLQ/mid lower abdomen. Patient reports he continues to have soft bowel movements. He was seen at general surgery's office today and referred back to the ED for treatment with IV antibiotics. Patient denies fevers and chills. No chest pain or shortness of breath. Denies lightheadedness, dizziness, diaphoresis, syncopal events. No urinary symptoms. In the ED, patient is hemodynamically stable and labs are unremarkable. He was given IV Zosyn, IV morphine, IV Zofran, IVF. Allergies Allergy/AdvReac Type Severity Reaction Status Date / Time valsartan [From Diovan] Allergy Intermediate Rash Verified 02/06/23 19:14 simvastatin AdvReac Severe ELEVATED Verified 02/06/23 19:14 LIVER FUNCTION TESTS enalapril AdvReac Intermediate cough Verified 02/06/23 19:14 fenofibrate AdvReac Intermediate abdominal Verified 02/06/23 19:14 discomfort gemfibrozil AdvReac Intermediate abdominal Verified 02/06/23 19:14 discomfort hydrocodone AdvReac Intermediate GI upset Verified 02/06/23 19:14 niacin AdvReac Intermediate upset Verified 02/06/23 19:14 stomach Aszjbye-YYB-RqF Reductase AdvReac Intermediate MYALGIAS Verified 02/06/23 19:14 Inhibitor [Aithggg-Fia-Ypo Reductase Inhibitor] Home Medications Medication Instructions Recorded Confirmed Type clopidogrel 75 mg tablet (Plavix) 75 mg PO QAM 11/27/20 02/06/23 History colestipol 1 gram tablet 1 g PO HS 11/27/20 02/06/23 History ezetimibe 10 mg tablet (Zetia) 10 mg PO HS 11/27/20 02/06/23 History lansoprazole 30 mg capsule,delayed 30 mg PO DAILYBB 11/27/20 02/06/23 History release (Prevacid) losartan 100 mg tablet (Cozaar) 100 mg PO QAM 11/27/20 02/06/23 History valacyclovir 500 mg tablet 500 mg PO QA 11/27/20 02/06/23 History (Valtrex) albuterol sulfate 90 mcg/actuation 2 puff inhalation Q4H PRN 04/03/21 02/06/23 History aerosol inhaler (Ventolin HFA) Shortness Of Breath buspirone 10 mg tablet 10 mg PO BID 04/03/21 02/06/23 History fluticasone propionate 110 1 puff inhalation Q12H PRN 04/03/21 02/06/23 History mcg/actuation HFA aerosol inhaler Shortness Of Breath Or Wheezing (Flovent HFA) loratadine 10 mg capsule 10 mg PO DAILY PRN Allergy Symptoms 04/03/21 02/06/23 History nifedipine 90 mg tablet,extended 90 mg PO QAM 04/03/21 02/06/23 History release tramadol 50 mg tablet 50 mg PO Q6H PRN Pain 04/03/21 02/06/23 History propranolol 120 mg 120 mg PO HS 05/08/21 02/06/23 History capsule,extended release 24 hr folic acid 1 mg tablet 1 mg PO QAM 01/22/23 02/06/23 History amoxicillin 875 mg-potassium 1 tab PO BID 02/06/23 02/06/23 History clavulanate 125 mg tablet cyanocobalamin (vitamin B-12) 1,000 mcg PO QAM 02/06/23 02/06/23 History 1,000 mcg tablet omega-3 fatty acids 1,000 mg 2,000 mg PO DAILY 02/06/23 02/06/23 History capsule ondansetron HCl 8 mg tablet 8 mg PO Q8H PRN NAUSEA/VOMITING 02/06/23 02/06/23 History polyethylene glycol 3350 17 17 g PO DAILY PRN Constipation 02/06/23 02/06/23 History gram/dose oral powder (Miralax) rosuvastatin 20 mg tablet 20 mg PO DAILY 02/06/23 02/06/23 History thiamine mononitrate (vit B1) 100 100 mg PO QAM 02/06/23 02/06/23 History mg tablet Past Med/Surg History Medical History (Updated 02/06/23 @ 22:30 by Luanne Potts, ) Acid reflux Well controlled and stable Anxiety Asthma Uses albuterol PRN inh 2-3xwk on avg Breathing stable Barretts esophagus Stable Carotid stenosis [facility] monitoring- Dr. Anderson Chua S/p left CEA - 2012 (<50% stenosis to left ICA) Right ICA 50-69% stenosis per 05/28/2021 carotid doppler Chronic alcohol use Chronic anticoagulation DDD (degenerative disc disease), cervical Encounter for pre-operative examination Fatty liver History of COVID-19 09/2020; sob, cough, fever, body aches, chills; fully recovered History of TIA (transient ischemic attack) 2012 per records Hypercholesteremia Hypertension Lumbar stenosis with neurogenic claudication PAD (peripheral artery disease) Prediabetes Prostate cancer S/p prostatectomy 05/2021 Surgical History H/O adenoidectomy History of endarterectomy Thromboendarterectomy , neck Lt 2012 History of esophagogastroduodenoscopy History of lumbar fusion lumbar hemilaminectomy X 2 History of prostate biopsy Hx of cholecystectomy Hx of colonoscopy Hx of tonsillectomy Family History Father , 53yo Heart disease Brother Heart disease Status post cardiac surgery Smoker Mother , 62yo Bowel obstruction Sister Accident Sister Diabetes Sister Stroke Daughter No problems noted. Other No family history of adverse response to anesthesia Social History Smoking Status: Never smoker Tobacco Type: Cigarettes Cigarettes Per Day: 1 PPD x 30 yrs; Second Hand Exposure: No; Do You Dip or Chew Tobacco: No; Hx Alcohol Use: Yes Alcohol type: beer Alcohol Intake Frequency: 4 or More x per/Week Hx Substance Use: No Preferred Language: Welsh Communication Ability: Effective Visual Impairment: No Limitations Hearing Ability: Normal Pharmacy Technician Per Diem Required: No Beliefs That Will Affect Care: None marital status: Current Living Situation: Spouse current occupational status: employed current occupation: [employer] Feels Safe at Home: Yes Safety Concerns: Feels Safe At This Time Diet: regular caffeine: No during the past year weight has: remained stable Assistive Devices: None Review of Systems Review of Systems: ROS per HPI, all other systems reviewed and negative Physical Exam Constitutional: WD/WN, vitals as above Eyes: PERRL, conjunctivae normal, anicteric sclerae ENMT: external ear and nose normal, oropharynx normal Respiratory: normal respiratory effort, lungs clear to auscultation Cardiovascular: Rate/Rhythm: regular rate and regular rhythm Vessels: normal peripheral pulses Extremities: no edema Gastrointestinal (Abdomen): Inspection/Auscultation: normal bowel sounds; abdomen not distended Percussion/Palpation: + abdomen tender (mild, lower abdomen) and abdomen soft; no guarding Musculoskeletal: no cyanosis or clubbing, extremities motor strength 5/5 Skin: no rashes, warm and dry Neurologic: PERRL, EOMI, accommodation nl, no face palsy, no dysarthria Psychiatric: A+Ox3, euthymic affect Results & Data Results & Data Vital Signs (Past 12 Hours) Vital Signs Temp Pulse Resp BP Pulse Ox O2 Del Method 02/06/23 18:46 88 02/06/23 13:57 36.8 C 106 H 18 120/85 97 Room Air Laboratory Results Short CBC 02/06/23 Range/Units 15:37 WBC 10.28 (4.8-10.8) K/ul Hgb 12.7 L (14.0-18.0) g/dl Hct 38.0 L (42.0-52.0) % Plt Count 521 H (130-400) K/uL BMP 02/06/23 15:37 Sodium 137 Potassium 3.6 Chloride 102 Carbon Dioxide 27 BUN 9 Creatinine 0.94 Glucose 114 H Calcium 9.8 Liver Function 02/06/23 Range/Units 15:37 Total Bilirubin 0.5 (0.2-1.0) mg/dl AST 29 (13-39) U/L ALT 34 (7-52) U/L Alkaline Phosphatase 105 H (34-104) U/L Albumin 3.8 (3.4-5.0) gm/dl Diagnostic Findings Abdomen/Pelvis CT 02/06/23 17:30 Exam(s): CT ABDOMEN + PELVIS With Contrast IV Amt: 94ml EXAM: CT Abdomen and Pelvis With Intravenous Contrast CLINICAL HISTORY: Reason for exam: diverticulitis. TECHNIQUE: Axial computed tomography images of the abdomen and pelvis with intravenous contrast. CTDI is 24.2 mGy and DLP is 1296.77 mGy-cm. Automated exposure control was utilized for the study. A dose lowering technique was utilized adhering to the principles of ALARA. CONTRAST: Patient received 94ml of IV contrast COMPARISON: CT abdomen/pelvis on 01/22/2023 FINDINGS: Lung bases: Unremarkable. No mass. No consolidation. Heart: Coronary artery calcifications. ABDOMEN: Liver: Unremarkable. No mass. Gallbladder and bile ducts: Prior cholecystectomy. Probable postcholecystectomy ductal ectasia. Pancreas: Unremarkable. No mass. No ductal dilation. Spleen: Unremarkable. No splenomegaly. Adrenals: Unremarkable. No mass. Kidneys and ureters: Nonspecific bilateral perinephric fat stranding. Small right renal cyst. No hydronephrosis or obstructing stone. Stomach and bowel: Diverticulosis. Wall thickening and fat stranding involving the sigmoid colon, concerning for acute diverticulitis versus neoplasm. Further evaluation could be performed with colonoscopy during follow up if clinically indicated. Evaluation of the stomach is limited by underdistention. No small bowel obstruction. PELVIS: Appendix: Normal appendix. Bladder: Bladder wall thickening is concerning for active infiltrate changes versus cystitis. Please correlate with urinalysis. Reproductive: Unremarkable as visualized. ABDOMEN and PELVIS: Intraperitoneal space: Unremarkable. No free air. No significant fluid collection. Bones/joints: Postsurgical changes at L4-5. Degenerative changes of the spine. No acute fracture. No dislocation. Soft tissues: Small fat-containing umbilical hernia. Vasculature: Atherosclerotic changes of the vasculature. No abdominal aortic aneurysm or dissection. Severe stenoses in the common iliac arteries. Lymph nodes: Mildly prominent pericolonic lymph nodes. IMPRESSION: 1. Diverticulosis. Wall thickening and fat stranding involving the sigmoid colon, concerning for acute diverticulitis versus neoplasm. Further evaluation could be performed with colonoscopy during follow up. Mildly prominent pericolonic lymph nodes raises concern for colonic neoplasm and possible papa metastases. 2. Bladder wall thickening is concerning for active infiltrate changes versus cystitis. Please correlate with urinalysis. Electronically signed by: Viktoria Funk M.D. 02/06/23 19:57 PM Code Status & VTE Plan VTE Prophylaxis Plan VTE Prophylaxis will be ordered: Yes Supervising Physician Co-Signing Physician Notes I have seen and examined the patient and have discussed the case with the provider above. I agree with the assessment and plan as stated. 67 yo M presents with ongoing abdominal pain without improvement on oral Augmentin. He was recently admitted as above for ongoing sigmoid stricture and radiation colitis. He reports that today he already feels better since receiving the intravenous antibiotic. He reports some ongoing watery diarrhea lately. He denies fevers or chills. He admits to poor oral intake because of low appetite and changed tastes and smells of foods. Physical reveals a WNWD man in NAD. Abdomen is soft NTND. Skin is warm and dry. Lungs are clear to auscultation throughout. CV exam is as above. Diagnostics were reviewed. CBC and chem panel are without significant abnormalities. CT a/p reveals wall thickening and fat stranding of the sigmoid colon, concerning for acute diverticulitis vs neoplasm. Bladder wall thickening was also present with changes concerning for cystitis. UA pending. 1. Colitis 2. h/o prostate cancer Worsening diarrhea and abdominal pain despite ongoing oral antibiotics in the outpatient setting. Now feeling improved with IV Zosyn. Concern for recurrent/nonhealing colitis vs diverticulitis. Cont with IV Zosyn pending further recommendations from Surgery and ID. Repeat Cdiff pending. Recent Stool GI PCR was negative two weeks ago. No sepsis present. High risk for malnutrition with poor PO intake. Consult nutrition. DO Delroy
[2023-02-06] MEDS ORDERED: ACETAMINOPHEN 325 MG TAB PO PRN (22:02)
[2023-02-06] MEDS ORDERED: ONDANSETRON INJ 2 MG/ML 2 ML VIAL IV PRN (22:02)
[2023-02-06 22:25] LABS: Appearance Urine Clear (Clear); Bacteria Urine Automated Negative (Negative); Blood Urine Negative (Negative); Color Urine Dark Yellow; Glucose Urine UA Negative (Negative); Ketones Urine 1+ (Negative); Leukocyte Esterase Urine Negative (Negative); Nitrite Urine Negative (Negative); Protein Urine 1+ (Negative); RBC Urine Automated 0-4 /hpf (0-4); Specific Gravity Urine > 1.045 (1.000-1.030); Urobilinogen Urine Negative (Negative); pH Urine 6.5 (4.5-7.5)
[2023-02-06 22:32] LABS: Bilirubin Urine 1+ (Negative)
[2023-02-06] MEDS: MoRPHine SULFATE 4 MG/ML 1 ML CARP\\VIAL IV PRN (22:39)
[2023-02-06] MEDS: EZETIMIBE 10 MG TABLET PO SCH (22:41)
[2023-02-06] MEDS: busPIRone 5 MG TAB PO SCH (22:41)
[2023-02-06] MEDS: PROPRANOLOL HCL 60 MG LA CAP PO SCH (22:42)
[2023-02-06] MEDS: PIPERACILLIN/TAZOBACTAM 4.5 GM in DEXTROSE 5% 100 ML IV SCH (23:38)
[2023-02-07] MEDS: PANTOprazole 40 MG TAB PO SCH (05:27)
[2023-02-07 07:11] LABS: Hematocrit (blood only) 31.2 % (42.0-52.0); Hemoglobin 10.5 g/dl (14.0-18.0); Mean Corpuscular Hemoglobin 30.4 pg (25.0-34.0); Mean Corpuscular Hgb Conc 33.7 g/dL (32.0-36.0); Mean Corpuscular Volume 90.4 fL (80.0-100.0); Mean Platelet Volume 9.7 fL (9.4-12.4); Platelet Count 381 K/uL (130-400); RDW Coefficient of Variation 13.2 % (11.5-14.5); Red Blood Count 3.45 M/uL (4.70-6.10); White Blood Count 4.81 K/ul (4.8-10.8)
[2023-02-07 07:22] LABS: BUN Creatinine Ratio 11.1 (10-20); Calcium 8.3 mg/dl (8.6-10.3); Creatinine Clr Calc Pharmacy 101.7 ml/min; Est GFR (African American) 108.1 ml/min; Est GFR (Non-African American) 93.3 ml/min; Potassium 3.2 mmol/L (3.5-5.1)
[2023-02-07] MEDS: MoRPHine SULFATE 4 MG/ML 1 ML CARP\\VIAL IV PRN ×4 (07:55→23:45)
[2023-02-07] MEDS: PIPERACILLIN/TAZOBACTAM 4.5 GM in DEXTROSE 5% 100 ML IV SCH ×2 (08:53→16:25)
[2023-02-07] MEDS: ROSUVASTATIN CALCIUM 20 MG TAB PO SCH (08:59)
[2023-02-07] MEDS: CLOPIDOGREL BISULFATE 75 MG TAB PO SCH (09:00)
[2023-02-07] MEDS: valACYclovir HCL 500 MG TABLET PO SCH (09:00)
[2023-02-07] MEDS: FOLIC ACID 1 MG TAB PO SCH (09:01)
[2023-02-07] MEDS: busPIRone 5 MG TAB PO SCH ×2 (09:02→20:29)
[2023-02-07] MEDS: CYANOCOBALAMIN (B-12) 500 MCG TABLET PO SCH (09:02)
[2023-02-07] MEDS: THIAMINE HCL 100 MG TAB PO SCH (09:03)
[2023-02-07] MEDS: LOSARTAN POTASSIUM 50 MG TAB PO SCH (09:08)
[2023-02-07] MEDS: NIFEdipine EXTENDED REL 30 MG TABCR PO SCH (09:09)
--- NOTE | 2023-02-07 12:38 | Consultation ---
Date of Consultation February 07, 2023 Assessment & Plan (1) Colitis: Radiation colitis with decreased PO intake in part related to loss of taste / smell which may be due to antibiotics. Stricture on colonoscopy but is not clinically obstructed. As radiation edema resolves, this may improved. Discussed low fiber diet, consider boost/ ensure supplementation, behaviorist consult. May need home PPN vs TPN for a few weeks. If obstructs, would require diverting colostomy. 45 minutes spent in reviewing history, discussing/ examining pt, and writing note. History of Present Illness Requesting Physician: Luanne Potts Reason for Consultation: sigmoid stricture Attending Physician: Alex Osborn MD History of Present Illness 67 yr old man s/p radiation therapy for prostate cancer 5 weeks ago, recent hospital admission from 01/21-01/28 for radiation colitis, dehydration and weight loss now readmitted with the same. Notes decreased appetite at home which he attributes to loss of taste/ smell and fear of developing abdominal pain. He had a colonoscopy prior which showed a sigmoid stricture. He is still passing gas and having loose bowel movements. No increased distention or nausea/ vomiting. Notes decreased PO intake at home. Had some lower abdominal pain which had wor sened following discharge but is now better after IV zosyn. Had needed PPN during his last stay and wondering about IV at home. Allergies Allergy/AdvReac Type Severity Reaction Status Date / Time valsartan [From Diovan] Allergy Intermediate Rash Verified 02/06/23 19:14 simvastatin AdvReac Severe ELEVATED Verified 02/06/23 19:14 LIVER FUNCTION TESTS enalapril AdvReac Intermediate cough Verified 02/06/23 19:14 fenofibrate AdvReac Intermediate abdominal Verified 02/06/23 19:14 discomfort gemfibrozil AdvReac Intermediate abdominal Verified 02/06/23 19:14 discomfort hydrocodone AdvReac Intermediate GI upset Verified 02/06/23 19:14 niacin AdvReac Intermediate upset Verified 02/06/23 19:14 stomach Hmpxbaa-OTI-RuC Reductase AdvReac Intermediate MYALGIAS Verified 02/06/23 19:14 Inhibitor [Ykititn-Tsu-Avn Reductase Inhibitor] Home Medications Medication Instructions Recorded Confirmed Type clopidogrel 75 mg tablet (Plavix) 75 mg PO QAM 11/27/20 02/06/23 History colestipol 1 gram tablet 1 g PO HS 11/27/20 02/06/23 History ezetimibe 10 mg tablet (Zetia) 10 mg PO HS 11/27/20 02/06/23 History lansoprazole 30 mg capsule,delayed 30 mg PO DAILYBB 11/27/20 02/06/23 History release (Prevacid) losartan 100 mg tablet (Cozaar) 100 mg PO QAM 11/27/20 02/06/23 History valacyclovir 500 mg tablet 500 mg PO QAM 11/27/20 02/06/23 History (Valtrex) albuterol sulfate 90 mcg/actuation 2 puff inhalation Q4H PRN 04/03/21 02/06/23 History aerosol inhaler (Ventolin HFA) Shortness Of Breath buspirone 10 mg tablet 10 mg PO BID 04/03/21 02/06/23 History fluticasone propionate 110 1 puff inhalation Q12H PRN 04/03/21 02/06/23 History mcg/actuation HFA aerosol inhaler Shortness Of Breath Or Wheezing (Flovent HFA) loratadine 10 mg capsule 10 mg PO DAILY PRN Allergy Symptoms 04/03/21 02/06/23 History nifedipine 90 mg tablet,extended 90 mg PO QAM 04/03/21 02/06/23 History release tramadol 50 mg tablet 50 mg PO Q6H PRN Pain 04/03/21 02/06/23 History propranolol 120 mg 120 mg PO HS 05/08/21 02/06/23 History capsule,extended release 24 hr folic acid 1 mg tablet 1 mg PO QAM 01/22/23 02/06/23 History amoxicillin 875 mg-potassium 1 tab PO BID 02/06/23 02/06/23 History clavulanate 125 mg tablet cyanocobalamin (vitamin B-12) 1,000 mcg PO QAM 02/06/23 02/06/23 History 1,000 mcg tablet omega-3 fatty acids 1,000 mg 2,000 mg PO DAILY 02/06/23 02/06/23 History capsule ondansetron HCl 8 mg tablet 8 mg PO Q8H PRN NAUSEA/VOMITING 02/06/23 02/06/23 History polyethylene glycol 3350 17 17 g PO DAILY PRN Constipation 02/06/23 02/06/23 History gram/dose oral powder (Miralax) rosuvastatin 20 mg tablet 20 mg PO DAILY 02/06/23 02/06/23 History thiamine mononitrate (vit B1) 100 100 mg PO QAM 02/06/23 02/06/23 History mg tablet Patient History Medical History Acid reflux Well controlled and stable Anxiety Asthma Uses albuterol PRN inh 2-3xwk on avg Breathing stable Barretts esophagus Stable Carotid stenosis [facility] Vascular Surgery monitoring- Dr. Anderson Chua S/p left CEA - 2012 (<50% stenosis to left ICA) Right ICA 50-69% stenosis per 05/28/2021 carotid doppler Chronic alcohol use Chronic anticoagulation DDD (degenerative disc disease), cervical Encounter for pre-operative examination Fatty liver History of COVID-09/2020; sob, cough, fever, body aches, chills; fully recovered History of TIA (transient ischemic attack) 2012 per records Hypercholesteremia Hypertension Lumbar stenosis with neurogenic claudication PAD (peripheral artery disease) Prediabetes Prostate cancer S/p prostatectomy 05/2021 Surgical History H/O adenoidectomy History of endarterectomy Thromboendarterectomy , neck Lt 2012 History of esophagogastroduodenoscopy History of lumbar fusion lumbar hemilaminectomy X 2 History of prostate biopsy Hx of cholecystectomy Hx of colonoscopy Hx of tonsillectomy Family History Father , 53yo Heart disease Brother Heart disease Status post cardiac surgery Smoker Mother , 62yo Bowel obstruction Sister Accident Sister Diabetes Sister Stroke Daughter No problems noted. 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 Beliefs That Will Affect Care: None marital status: Current Living Situation: Spouse current occupational status: employed current occupation: [employer] Feels Safe at Home: Yes Safety Concerns: Feels Safe At This Time Diet: regular caffeine: No during the past year weight has: remained stable Assistive Devices: None Review of Systems Review of Systems: All systems reviewed & are unremarkable except as noted in HPI & below Physical Exam Constitutional: WD/WN, vitals as above Eyes: PERRL, conjunctivae normal, anicteric sclerae Neck: normal visual inspection and trachea midline Respiratory: normal respiratory effort, lungs clear to auscultation Cardiovascular: RRR, no murmur, no edema Gastrointestinal (Abdomen): Inspection/Auscultation: abdomen normal to inspection and normal bowel sounds; abdomen not distended Percussion/[place] on: + abdomen tender (mild in lower pelvis) and abdomen soft; no guarding Neurologic: awake; no focal motor deficits Psychiatric: A+Ox3, euthymic affect Results & Data Vital Signs (Past 12 Hours) Vital Signs Temp Pulse Resp BP Pulse Ox O2 Del Method 02/07/23 09:07 83 111/67 02/07/23 07:12 36.8 C 73 16 105/64 95 Room Air Laboratory Results Abnormal lab results 02/06/23 02/06/23 02/06/23 Range/Units 15:37 15:37 21:50 RBC 4.16 L (4.70-6.10) M/uL Hgb 12.7 L (14.0-18.0) g/dl Hct 38.0 L (42.0-52.0) % Plt Count 521 H (130-400) K/uL Neut # (Auto) 8.18 H (1.40-6.50) K/uL Lymph # (Auto) 0.51 L (1.2-3.4) K/uL [place] # (Auto) 1.14 H (0.11-0.59) K/uL Potassium (3.5-5.1) mmol/L BUN/Creatinine Ratio 9.6 L (10-20) Glucose 114 H (70-99(Fasting)) mg/dl Calcium (8.6-10.3) mg/dl Alkaline Phosphatase 105 H (34-104) U/L Globulin 4.1 H (2.5-4.0) gm/dl Ur Specific [place] > 1.045 H (1.000-1.030) Urine Protein 1+ H (Negative) Urine Ketones 1+ H (Negative) Urine Bilirubin 1+ H (Negative) U Epithel Cells (Auto) 10-20 H (0-5) /lpf 02/07/23 02/07/23 Range/Units 06:33 06:33 RBC 3.45 L (4.70-6.10) M/uL Hgb 10.5 L (14.0-18.0) g/dl Hct 31.2 L (42.0-52.0) % Plt Count (130-400) K/uL Neut # (Auto) (1.40-6.50) K/uL Lymph # (Auto) (1.2-3.4) K/uL [place] # (Auto) (0.11-0.59) K/uL Potassium 3.2 L (3.5-5.1) mmol/L BUN/Creatinine Ratio (10-20) Glucose 104 H (70-99(Fasting)) mg/dl Calcium 8.3 L (8.6-10.3) mg/dl Alkaline Phosphatase (34-104) U/L Globulin (2.5-4.0) gm/dl Ur Specific [place] (1.000-1.030) Urine Protein (Negative) Urine Ketones (Negative) Urine Bilirubin (Negative) U Epithel Cells (Auto) (0-5) /lpf Diagnostic Findings Exam(s): CT ABDOMEN + PELVIS With Contrast IV Amt: 94ml EXAM: CT Abdomen and Pelvis With Intravenous Contrast CLINICAL HISTORY: Reason for exam: diverticulitis. TECHNIQUE: Axial computed tomography images of the abdomen and pelvis with intravenous contrast. CTDI is 24.2 mGy and DLP is 1296.77 mGy-cm. Automated exposure control was utilized for the study. A dose lowering technique was utilized adhering to the principles of ALARA. CONTRAST: Patient received 94ml of IV contrast COMPARISON: CT abdomen/pelvis on 01/22/2023 FINDINGS: Lung bases: Unremarkable. No mass. No consolidation. Heart: Coronary artery calcifications. ABDOMEN: Liver: Unremarkable. No mass. Gallbladder and bile ducts: Prior cholecystectomy. Probable postcholecystectomy ductal ectasia. Pancreas: Unremarkable. No mass. No ductal dilation. Spleen: Unremarkable. No splenomegaly. Adrenals: Unremarkable. No mass. Kidneys and ureters: Nonspecific bilateral perinephric fat stranding. Small right renal cyst. No hydronephrosis or obstructing stone. Stomach and bowel: Diverticulosis. Wall thickening and fat stranding involving the sigmoid colon, concerning for acute diverticulitis versus neoplasm. Further evaluation could be performed with colonoscopy during follow up if clinically indicated. Evaluation of the stomach is limited by underdistention. No small bowel obstruction. PELVIS: Appendix: Normal appendix. Bladder: Bladder wall thickening is concerning for active infiltrate changes versus cystitis. Please correlate with urinalysis. Reproductive: Unremarkable as visualized. ABDOMEN and PELVIS: Intraperitoneal space: Unremarkable. No free air. No significant fluid collection. Bones/joints: Postsurgical changes at L4-5. Degenerative changes of the spine. No acute fracture. No dislocation. Soft tissues: Small fat-containing umbilical hernia. Vasculature: Atherosclerotic changes of the vasculature. No abdominal aortic aneurysm or dissection. Severe stenoses in the common iliac arteries. Lymph nodes: Mildly prominent pericolonic lymph nodes. IMPRESSION: 1. Diverticulosis. Wall thickening and fat stranding involving the sigmoid colon, concerning for acute diverticulitis versus neoplasm. Further evaluation could be performed with colonoscopy during follow up. Mildly prominent pericolonic lymph nodes raises concern for colonic neoplasm and possible papa metastases. 2. Bladder wall thickening is concerning for active infiltrate changes versus cystitis. Please correlate with urinalysis. Electronically signed by: Viktoria Funk M.D. 02/06/23 19:57 PM
[2023-02-07] MEDS ORDERED: TROLAMINE SALICYLATE 10% CRM 255 APPLN/85 GM TUBE EXT PRN (14:20)
--- NOTE | 2023-02-07 15:49 | Hospitalist Progress Note ---
Date of Service February 07, 2023 Assessment & Plan (1) Colitis: (2) Sigmoid stricture: Plan: per admitting service notes with addendum: Patient referred to the ED by Dr. Ankur Sifuentes for evaluation of ongoing abdominal pain. Patient recently admitted to [facility] 01/22 through 01/28 for sigmoid stricture due to radiation colitis and/or diverticulitis. Prior to admission, patient underwent colonoscopy on 01/16 that did not show a mass but did show severe inflammation and stricture. The scope could not pass through the area of concern. Biopsy negative for dysplasia but showed hyperplastic colonic mucosa with mild inflammation. During admission, patient required PPN for nutritional support and he was treated with IV Zosyn. Currently afebrile, no leukocytosis CT ABD/pelvis does not show fluid collection or abscess. Resume IV Zosyn Clear liquid diet Dietitian consult for nutritional assessment --required PPN during recent admission General surgery consult 02/07 Hemodynamically stable Evaluated by general surgery, felt to be secondary to radiation colitis Continue IV Zosyn, advance diet to full liquids, add boost 3 times daily Pain control Monitor closely (3) Hypertension: Plan: BP controlled, continue nifedipine, losartan, propanolol (4) PAD (peripheral artery disease): (5) History of endarterectomy: (6) History of TIA (transient ischemic attack): Plan: Continue Plavix, statin, Zetia DVT PROPHYLAXIS SCDs for now plan of care discussed with patient in detail and at length all questions answered he is understanding, agreeable, comfortable with the plan of care (7) Prostate cancer: Admission and Anticipated Discharge Date Admission Date: February 06, 2023 Subjective Follow-up for sigmoid stricture, etc. Seen resting in bed, not in distress States left lower quadrant pain right lower quadrant pain is mostly well controlled Denies nausea or vomiting, fevers or chills no chest pain, dyspnea, palpitations, dizziness No other symptoms Review of Systems Review of Systems: all noted and negative except for above Physical Exam Physical Exam: General- oriented x 3, not in distress, speaks in sentences with no effort or accessory muscle use Eyes- anicteric Neck- no JVD Lungs- clear breath sounds bilaterally, no rales/wheezes Heart- normal rate, regular rhythm; no murmurs Abdomen-normal bowel sounds, nondistended, soft, positive mild tenderness lower quadrants Extremities- no pretibial edema, no calf tenderness Neuro- alert, oriented x 3; no gross focal neurologic deficits Skin- warm & dry Results & Data Results & Data Vital Signs (Past 12 Hours) Vital Signs Temp Pulse Resp BP Pulse Ox O2 Del Method 02/07/23 15:10 36.7 C 74 16 99/63 L 95 Room Air 02/07/23 09:07 83 111/67 02/07/23 07:12 36.8 C 73 16 105/64 95 Room Air all noted and reviewed including below
[2023-02-07] MEDS: EZETIMIBE 10 MG TABLET PO SCH (20:29)
[2023-02-07] MEDS: PROPRANOLOL HCL 60 MG LA CAP PO SCH (20:29)
[2023-02-08] MEDS: PIPERACILLIN/TAZOBACTAM 4.5 GM in DEXTROSE 5% 100 ML IV SCH ×3 (00:05→16:54)
[2023-02-08] MEDS: PANTOprazole 40 MG TAB PO SCH (06:42)
[2023-02-08] MEDS: MoRPHine SULFATE 4 MG/ML 1 ML CARP\\VIAL IV PRN ×3 (08:34→20:48)
[2023-02-08] MEDS: SODIUM CHLORIDE 0.9% 1000ML 1,000 ML IV SCH ×2 (08:38→16:47)
[2023-02-08 08:46] LABS: Basophils # (auto) 0.06 K/uL (0-0.2); Basophils % (auto) 1.3 %; Eosinophils # (auto) 0.31 K/uL (0-0.50); Eosinophils % (auto) 6.5 %; Hematocrit (blood only) 31.1 % (42.0-52.0); Hemoglobin 10.6 g/dl (14.0-18.0); Immature Granulocytes # (auto) 0.03 K/uL (0.01-0.20); Immature Granulocytes % (auto) 0.6 %; Lymphocytes # (auto) 0.38 K/uL (1.2-3.4); Mean Corpuscular Hemoglobin 30.5 pg (25.0-34.0); Mean Corpuscular Hgb Conc 34.1 g/dL (32.0-36.0); Mean Corpuscular Volume 89.6 fL (80.0-100.0); Mean Platelet Volume 9.8 fL (9.4-12.4); Monocytes # (auto) 0.75 K/uL (0.11-0.59); Monocytes % (auto) 15.8 %; Neutrophils # (auto) 3.21 K/uL (1.40-6.50); Neutrophils % (auto) 67.8 %; Platelet Count 419 K/uL (130-400); RDW Coefficient of Variation 13.4 % (11.5-14.5); RDW Standard Deviation 44.1 fL (36.4-46.3); Red Blood Count 3.47 M/uL (4.70-6.10); White Blood Count 4.74 K/ul (4.8-10.8)
[2023-02-08] MEDS: LOSARTAN POTASSIUM 50 MG TAB PO SCH (08:48)
[2023-02-08] MEDS: NIFEdipine EXTENDED REL 30 MG TABCR PO SCH (08:48)
[2023-02-08] MEDS: THIAMINE HCL 100 MG TAB PO SCH (08:49)
[2023-02-08] MEDS: CYANOCOBALAMIN (B-12) 500 MCG TABLET PO SCH (08:49)
[2023-02-08] MEDS: busPIRone 5 MG TAB PO SCH ×2 (08:49→20:39)
[2023-02-08] MEDS: valACYclovir HCL 500 MG TABLET PO SCH (08:50)
[2023-02-08] MEDS: FOLIC ACID 1 MG TAB PO SCH (08:50)
[2023-02-08] MEDS: ROSUVASTATIN CALCIUM 20 MG TAB PO SCH (08:50)
[2023-02-08] MEDS: CLOPIDOGREL BISULFATE 75 MG TAB PO SCH (08:51)
[2023-02-08] MEDS: ADVANCED PROBIOTIC 1250 MG CAPSULE PO SCH (08:51)
[2023-02-08 09:01] LABS: Calcium 8.5 mg/dl (8.6-10.3); Magnesium 1.4 mg/dl (1.7-2.4); Potassium 3.2 mmol/L (3.5-5.1)
[2023-02-08 09:07] LABS: BUN Creatinine Ratio 8.6 (10-20); Creatinine Clr Calc Pharmacy 101.7 ml/min; Est GFR (African American) 108.1 ml/min; Est GFR (Non-African American) 93.3 ml/min; Phosphorus 3.9 mg/dl (2.5-4.9)
--- NOTE | 2023-02-08 10:28 | Surgery Progress Note ---
Date of Service February 08, 2023 Assessment & Plan (1) Colitis: Plan: Radiation colitis with decreased PO intake in part related to loss of taste / smell which may be due to antibiotics. Stricture on colonoscopy but is not clinically obstructed. As radiation edema resolves, this may improve. Appreciate dietary consult. He may benefit from home PPN or TPN as he is unlikely to tolerate significant advancement of diet past full liquids and unlikely to be able to take the calories needed in orally. Discussed with Dr. Osborn. 23 minutes spent in reviewing chart, discussing/ examining pt, coordinating care and writing note. Admission and Anticipated Discharge Date Admission Date: February 06, 2023 Subjective Overall about the same. Met with pulp bleacher yesterday and is sipping on boost supplements. No increased abdominal pain, no nausea. Continues to pass flatus and have loose stools. Physical Exam Constitutional: WD/WN, vitals as above Eyes: PERRL, conjunctivae normal, anicteric sclerae Neck: normal visual inspection and trachea midline Respiratory: normal respiratory effort, lungs clear to auscultation Cardiovascular: RRR, no murmur, no edema Gastrointestinal (Abdomen): Inspection/Auscultation: abdomen normal to inspection and normal bowel sounds; abdomen not distended Percussion/Palpation: abdomen soft; abdomen nontender and no guarding Neurologic: awake; no focal motor deficits Psychiatric: A+Ox3, euthymic affect Results & Data Vital Signs (Past 12 Hours) Vital Signs Temp Pulse Resp BP Pulse Ox O2 Del Method 02/08/23 08:00 78 110/69 02/08/23 07:42 37.5 C 62 18 94/60 L 94 Room Air Laboratory Results Abnormal lab results 02/08/23 02/08/23 Range/Units 08:22 08:22 WBC 4.74 L (4.8-10.8) K/ul RBC 3.47 L (4.70-6.10) M/uL Hgb 10.6 L (14.0-18.0) g/dl Hct 31.1 L (42.0-52.0) % Plt Count 419 H (130-400) K/uL Lymph # (Auto) 0.38 L (1.2-3.4) K/uL [place] # (Auto) 0.75 H (0.11-0.59) K/uL Potassium 3.2 L (3.5-5.1) mmol/L BUN/Creatinine Ratio 8.6 L (10-20) Glucose 116 H (70-99(Fasting)) mg/dl Calcium 8.5 L (8.6-10.3) mg/dl Magnesium 1.4 L (1.7-2.4) mg/dl
[2023-02-08] MEDS ORDERED: POTASSIUM CHLORIDE 20 MEQ/15 ML UDC PO STA (11:26)
[2023-02-08] MEDS ORDERED: TPN/PPN CONSULT PHARMACY PRN (11:30)
[2023-02-08] MEDS: MAGNESIUM SULFATE / D5W 1 GM/100 ML BAG IV SCH ×5 (12:36→20:37)
[2023-02-08] MEDS: POTASSIUM CHLORIDE / WTR 10 MEQ/100 ML PLCT IV SCH ×4 (12:36→15:38)
--- NOTE | 2023-02-08 16:09 | Hospitalist Progress Note ---
Date of Service February 08, 2023 Assessment & Plan (1) Colitis: (2) Sigmoid stricture: Plan: per admitting service notes with addendum: Patient referred to the ED by Dr. Ankur Sifuentes for evaluation of ongoing abdominal pain. Patient recently admitted to [facility] 01/22 through 01/28 for sigmoid stricture due to radiation colitis and/or diverticulitis. Prior to admission, patient underwent colonoscopy on 01/16 that did not show a mass but did show severe inflammation and stricture. The scope could not pass through the area of concern. Biopsy negative for dysplasia but showed hyperplastic colonic mucosa with mild inflammation. During admission, patient required PPN for nutritional support and he was treated with IV Zosyn. Currently afebrile, no leukocytosis CT ABD/pelvis does not show fluid collection or abscess. Resume IV Zosyn Clear liquid diet Dietitian consult for nutritional assessment --required PPN during recent admission General surgery consult 02/08 Hemodynamically stable Evaluated by general surgery, felt to be secondary to radiation colitis Discussed with Dr. Wallace today Anticipate a few more weeks before radiation colitis resolves, hence recommending TPN for optimization of nutritional support Discussed with cell tower climber We will start TPN tomorrow, replete potassium and magnesium today Discussed with patient, and he is agreeable with the plan of care Continue IV Zosyn, advance diet to full liquids, boost 3 times daily Pain control Monitor closely (3) Hypertension: Plan: BP controlled, continue nifedipine, losartan, propanolol (4) PAD (peripheral artery disease): (5) History of endarterectomy: (6) History of TIA (transient ischemic attack): Plan: Continue Plavix, statin, Zetia DVT PROPHYLAXIS SCDs for now plan of care discussed with patient in detail and at length all questions answered he is understanding, agreeable, comfortable with the plan of care (7) Prostate cancer: Admission and Anticipated Discharge Date Admission Date: February 06, 2023 Subjective Follow-up for sigmoid stricture, radiation colitis, etc. Seen sitting up in bed, not in distress, comfortable States he feels okay overall Still having waves of left lower quadrant pain but improving, pain medication regimen relieving pain Tolerating clear liquid diet Positive loose stools no chest pain, dyspnea, palpitations, dizziness No other new symptoms Review of Systems Review of Systems: all noted and negative except for above Physical Exam Physical Exam: General- oriented x 3, not in distress, speaks in sentences with no effort or accessory muscle use Eyes- anicteric Neck- no JVD Lungs- clear breath sounds, no crackles or wheezing bilaterally Heart- normal rate, regular rhythm; no murmurs Abdomen- normal bowel sounds, nondistended, soft, minimal left lower quadrant tenderness Extremities- no pretibial edema, no calf tenderness Neuro- alert, oriented x 3; no gross focal neurologic deficits Skin- warm & dry Results & Data Results & Data Vital Signs (Past 12 Hours) Vital Signs Temp Pulse Resp BP Pulse Ox O2 Del Method 02/08/23 15:20 36.8 C 71 18 118/74 94 Room Air 02/08/23 08:00 78 110/69 02/08/23 07:42 37.5 C 62 18 94/60 L 94 Room Air all noted and reviewed including below
[2023-02-08] MEDS: EZETIMIBE 10 MG TABLET PO SCH (20:38)
[2023-02-08] MEDS: PROPRANOLOL HCL 60 MG LA CAP PO SCH (20:43)
[2023-02-09] MEDS: PIPERACILLIN/TAZOBACTAM 4.5 GM in DEXTROSE 5% 100 ML IV SCH ×4 (00:22→23:03)
[2023-02-09] MEDS: SODIUM CHLORIDE 0.9% 1000ML 1,000 ML IV SCH ×2 (00:22→08:02)
[2023-02-09] MEDS: MoRPHine SULFATE 4 MG/ML 1 ML CARP\\VIAL IV PRN ×4 (04:29→23:05)
[2023-02-09] MEDS: PANTOprazole 40 MG TAB PO SCH (04:30)
[2023-02-09 06:47] LABS: BUN Creatinine Ratio 4.2 (10-20); Calcium 7.8 mg/dl (8.6-10.3); Creatinine Clr Calc Pharmacy 116.1 ml/min; Est GFR (African American) 114.1 ml/min; Est GFR (Non-African American) 98.5 ml/min; Magnesium 1.9 mg/dl (1.7-2.4); Phosphorus 2.7 mg/dl (2.5-4.9); Potassium 3.4 mmol/L (3.5-5.1)
[2023-02-09] MEDS: NIFEdipine EXTENDED REL 30 MG TABCR PO SCH (08:27)
[2023-02-09] MEDS: CLOPIDOGREL BISULFATE 75 MG TAB PO SCH (08:28)
[2023-02-09] MEDS: busPIRone 5 MG TAB PO SCH ×2 (08:29→19:49)
[2023-02-09] MEDS: ROSUVASTATIN CALCIUM 20 MG TAB PO SCH (08:29)
[2023-02-09] MEDS: THIAMINE HCL 100 MG TAB PO SCH (08:29)
[2023-02-09] MEDS: LOSARTAN POTASSIUM 50 MG TAB PO SCH (08:30)
[2023-02-09] MEDS: FOLIC ACID 1 MG TAB PO SCH (08:30)
[2023-02-09] MEDS: CYANOCOBALAMIN (B-12) 500 MCG TABLET PO SCH (08:30)
[2023-02-09] MEDS: ADVANCED PROBIOTIC 1250 MG CAPSULE PO SCH (08:31)
[2023-02-09] MEDS ORDERED: POTASSIUM CHLORIDE 20 MEQ/15 ML UDC PO STA (08:38)
[2023-02-09] MEDS: POTASSIUM CHLORIDE / WTR 10 MEQ/100 ML PLCT IV SCH ×4 (09:49→13:09)
--- NOTE | 2023-02-09 14:35 | Surgery Progress Note ---
Date of Service February 09, 2023 Assessment & Plan (1) Colitis: Plan: Radiation colitis vs diverticulitis Stricture on colonoscopy but is not clinically obstructed. afebrile, vss plan; PICC line to optimize nutrition continue IV antibiotics continue pain management as needed may advance to soft diet, small amounts as he is not obstructed continue medical management Dr. Sifuentes has seen and examined pt, agrees with above. Admission and Anticipated Discharge Date Admission Date: February 06, 2023 Supervising Physician Co-Signing Physician Notes I have seen and examined the patient personally and agree with the above assessment and plan. He is quite deconditioned and needs nutrition. Agree with PICC line and planning for TPN. Continue to replenish electrolytes. Continue IV antibiotics. Diet may be advanced as tolerated, as he is not obstructed. We will attempt to support him through the acute radiation colitis. Subjective feeling okay now but had a lot of pain earlier this morning with nausea pain comes in waves and is severe morphine helping still passing gas and liquid bowel movements tolerating liquids Nurse present in room, plan for PICC line placement, potassium being replaced. Physical Exam Constitutional: WD/WN, vitals as above cooperative and comfortable; no acute distress and not ill appearing Respiratory: normal respiratory effort; no respiratory distress Gastrointestinal (Abdomen): Inspection/Auscultation: abdomen normal to inspection and + hypoactive bowel sounds; abdomen not distended and + abnormal bowel sounds Percussion/Palpation: + abdomen tender (bilateral lower abdomen, suprapubic) and abdomen soft; no guarding, abdomen not rigid and abdomen not firm Skin: no rashes, warm and dry Psychiatric: Orientation: alert and oriented x 3 Results & Data Vital Signs (Past 12 Hours) Vital Signs Temp Pulse Resp BP BP Pulse Ox O2 Del Method 02/09/23 08:21 69 123/77 02/09/23 07:06 37.1 C 77 18 135/76 95 Room Air Laboratory Results 02/09/23 02/09/23 02/09/23 Range/Units 12:41 12:02 08:04 Sodium (136-145) mmol/L Potassium 3.7 (3.5-5.1) mmol/L Chloride (98-107) mmol/L Carbon Dioxide (21-32) mmol/L Anion Gap (3-11) BUN (6-23) mg/dl Creatinine (0.6-1.4) mg/dl Est Cr Clr Drug Dosing ml/min Est GFR ( Amer) ml/min Est GFR (Non-Af Amer) ml/min BUN/Creatinine Ratio (10-20) Glucose (70-99(Fasting)) mg/dl POC Glucose 112 H 107 H (70-99) mg/dl Calcium (8.6-10.3) mg/dl Phosphorus (2.5-4.9) mg/dl Magnesium (1.7-2.4) mg/dl 02/09/23 Range/Units 05:32 Sodium 138 (136-145) mmol/L Potassium 3.4 L (3.5-5.1) mmol/L Chloride 107 (98-107) mmol/L Carbon Dioxide 27 (21-32) mmol/L Anion Gap 4 (3-11) BUN 3 L (6-23) mg/dl Creatinine 0.71 (0.6-1.4) mg/dl Est Cr Clr Drug Dosing 116.1 ml/min Est GFR ( Amer) 114.1 ml/min Est GFR (Non-Af Amer) 98.5 ml/min BUN/Creatinine Ratio 4.2 L (10-20) Glucose 119 H (70-99(Fasting)) mg/dl POC Glucose (70-99) mg/dl Calcium 7.8 L (8.6-10.3) mg/dl Phosphorus 2.7 D (2.5-4.9) mg/dl Magnesium 1.9 (1.7-2.4) mg/dl
[2023-02-09] MEDS ORDERED: POTASSIUM CHLORIDE CRTAB 20 MEQ TABCR PO ONE (18:41)
--- NOTE | 2023-02-09 18:41 | Hospitalist Progress Note ---
Date of Service February 09, 2023 Assessment & Plan (1) Colitis: (2) Sigmoid stricture: Plan: per admitting service notes with addendum: Patient referred to the ED by Dr. Ankur Sifuentes for evaluation of ongoing abdominal pain. 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 Prior to admission, patient underwent colonoscopy on 01/16 that did not show a mass but did show severe inflammation and stricture. The scope could not pass through the area of concern. Biopsy negative for dysplasia but showed hyperplastic colonic mucosa with mild inflammation. During admission, patient required PPN for nutritional support and he was treated with IV Zosyn. Currently afebrile, no leukocytosis CT ABD/pelvis does not show fluid collection or abscess. Resume IV Zosyn Clear liquid diet Dietitian consult for nutritional assessment --required PPN during recent admission General surgery consult 02/09 Hemodynamically stable Evaluated by general surgery, felt to be secondary to radiation colitis PICC line placed today for TPN, anticipate discharge tomorrow Replace potassium Check electrolytes tomorrow Continue IV Zosyn, advancement of diet per general surgery service Pain control Monitor closely (3) Hypertension: Plan: BP controlled, continue nifedipine, losartan, propanolol (4) PAD (peripheral artery disease): (5) History of endarterectomy: (6) History of TIA (transient ischemic attack): Plan: Continue Plavix, statin, Zetia DVT PROPHYLAXIS SCDs for now plan of care discussed with patient in detail and at length all questions answered he is understanding, agreeable, comfortable with the plan of care (7) Prostate cancer: Admission and Anticipated Discharge Date Admission Date: February 06, 2023 Subjective Follow-up for sigmoid stricture, radiation colitis, etc. Seen resting in bed, not in distress States he had an episode of lower quadrant pain again this morning, resolved after 2 hours Tolerating diet well, no nausea or vomiting Positive loose BMs No other new symptoms Review of Systems Review of Systems: all noted and negative except for above Physical Exam Physical Exam: General- oriented x 3, not in distress, speaks in sentences with no effort or accessory muscle use Eyes- anicteric Neck- no JVD Lungs- clear BS BL Heart- normal rate, regular rhythm; no murmurs Abdomen- normal bowel sounds, nondistended, soft, no tenderness noted Extremities- no pretibial edema, no calf tenderness Neuro- alert, oriented x 3; no gross focal neurologic deficits Skin- warm & dry Results & Data Results & Data Vital Signs (Past 12 Hours) Vital Signs Temp Pulse Resp BP BP Pulse Ox O2 Del Method 02/09/23 15:08 36.9 C 75 18 130/77 97 Room Air 02/09/23 08:21 69 123/77 02/09/23 07:06 37.1 C 77 18 135/76 95 Room Air all noted and reviewed including below
[2023-02-09] MEDS: PROPRANOLOL HCL 60 MG LA CAP PO SCH (19:49)
[2023-02-09] MEDS: EZETIMIBE 10 MG TABLET PO SCH (19:49)
[2023-02-10] MEDS: PANTOprazole 40 MG TAB PO SCH (06:37)
[2023-02-10] MEDS: PIPERACILLIN/TAZOBACTAM 4.5 GM in DEXTROSE 5% 100 ML IV SCH ×3 (07:30→23:21)
[2023-02-10] MEDS: MoRPHine SULFATE 4 MG/ML 1 ML CARP\\VIAL IV PRN ×3 (07:30→20:26)
[2023-02-10] MEDS: CLOPIDOGREL BISULFATE 75 MG TAB PO SCH (07:42)
[2023-02-10] MEDS: FOLIC ACID 1 MG TAB PO SCH (07:43)
[2023-02-10] MEDS: CYANOCOBALAMIN (B-12) 500 MCG TABLET PO SCH (07:43)
[2023-02-10] MEDS: LOSARTAN POTASSIUM 50 MG TAB PO SCH (07:43)
[2023-02-10] MEDS: ADVANCED PROBIOTIC 1250 MG CAPSULE PO SCH (07:43)
[2023-02-10] MEDS: THIAMINE HCL 100 MG TAB PO SCH (07:44)
[2023-02-10] MEDS: busPIRone 5 MG TAB PO SCH ×2 (07:44→20:28)
[2023-02-10] MEDS: NIFEdipine EXTENDED REL 30 MG TABCR PO SCH (07:44)
[2023-02-10] MEDS: ROSUVASTATIN CALCIUM 20 MG TAB PO SCH (07:45)
[2023-02-10 07:49] LABS: BUN Creatinine Ratio 4.6 (10-20); Calcium 8.7 mg/dl (8.6-10.3); Creatinine Clr Calc Pharmacy 128.1 ml/min; Est GFR (African American) 118.3 ml/min; Est GFR (Non-African American) 102.1 ml/min; Magnesium 1.5 mg/dl (1.7-2.4); Phosphorus 2.8 mg/dl (2.5-4.9); Potassium 3.6 mmol/L (3.5-5.1)
[2023-02-10] MEDS ORDERED: POTASSIUM CHLORIDE CRTAB 20 MEQ TABCR PO STA (08:43)
[2023-02-10] MEDS: traMADol HCL 50 MG TABLET PO PRN ×2 (08:49→20:27)
[2023-02-10] MEDS ORDERED: POLYETHYLENE (MIRALAX) 17 GM PACK PO SCH (09:00)
[2023-02-10] MEDS: MAGNESIUM SULFATE / D5W 1 GM/100 ML BAG IV SCH ×2 (10:11→12:11)
[2023-02-10] MEDS: POTASSIUM CHLORIDE / WTR 10 MEQ/100 ML PLCT IV SCH ×2 (10:11→11:13)
--- NOTE | 2023-02-10 11:07 | Surgery Progress Note ---
Date of Service February 10, 2023 Assessment & Plan (1) Diverticulitis: (2) Prostate cancer: (3) Acute radiation colitis: Plan Improving slowly. Continue IV antibiotics. TPN to start today. Continue electrolyte replacement. Advance diet as tolerated. Continue conservative management. Admission and Anticipated Discharge Date Admission Date: February 06, 2023 Subjective Doing fairly well this morning. Some lower abdominal cramping and pain. Continues to pass flatus and have bowel movements. Did eat some chicken last night. No nausea or vomiting. Physical Exam Physical Exam: NAD, A&O x3 AFVSS Abdomen: Soft, mild TTP in lower abdomen Results & Data Vital Signs (Past 12 Hours) Vital Signs Temp Pulse Resp BP Pulse Ox O2 Del Method 02/10/23 07:31 36.8 C 74 18 149/83 H 97 Room Air Laboratory Results 02/10/23 02/10/23 02/09/23 Range/Units 07:03 07:03 18:01 Sodium 137 (136-145) mmol/L Potassium 3.6 (3.5-5.1) mmol/L Chloride 105 (98-107) mmol/L Carbon Dioxide 26 (21-32) mmol/L Anion Gap 6 (3-11) BUN 3 L (6-23) mg/dl Creatinine 0.65 (0.6-1.4) mg/dl Est Cr Clr Drug Dosing 128.1 ml/min Est GFR ( Amer) 118.3 ml/min Est GFR (Non-Af Amer) 102.1 ml/min BUN/Creatinine Ratio 4.6 L (10-20) Glucose 111 H (70-99(Fasting)) mg/dl POC Glucose 115 H (70-99) mg/dl Calcium 8.7 (8.6-10.3) mg/dl Phosphorus 2.8 (2.5-4.9) mg/dl Magnesium 1.5 L (1.7-2.4) mg/dl Triglycerides 127 (0-150) mg/dl 02/09/23 02/09/23 Range/Units 12:41 12:02 Sodium (136-145) mmol/L Potassium 3.7 (3.5-5.1) mmol/L Chloride (98-107) mmol/L Carbon Dioxide (21-32) mmol/L Anion Gap (3-11) BUN (6-23) mg/dl Creatinine (0.6-1.4) mg/dl Est Cr Clr Drug Dosing ml/min Est GFR ( Amer) ml/min Est GFR (Non-Af Amer) ml/min BUN/Creatinine Ratio (10-20) Glucose (70-99(Fasting)) mg/dl POC Glucose 112 H (70-99) mg/dl Calcium (8.6-10.3) mg/dl Phosphorus (2.5-4.9) mg/dl Magnesium (1.7-2.4) mg/dl Triglycerides (0-150) mg/dl
--- NOTE | 2023-02-10 12:07 | Pharmacy Report ---
PHA: Parenteral Nutrition Con - Date of Service February 10, 2023 - Scope Pharmacy was consulted on 02/09/23 to manage parenteral nutrition orders for this patient. - Subjective The patient is currently on day #1 of central parenteral nutrition for poor PO intake secondary to radiation colitis. - Objective Height: 5 ft 10 in Weight: 90.4 kg Diet: NPO Intake & Output (24hrs):: Intake & Output 02/08/23 02/09/23 02/10/23 02/11/23 06:59 06:59 06:59 06:59 Intake Total 360 / 360 3432.084 / 3432.084 2537.083 / 2537.083 100 / 100 Output Total 350 / 350 Balance 360 / 360 3431.084 / 3431.084 2187.083 / 2187.083 100 / 100 Weight 88.3 kg 88.3 kg 90.4 kg Laboratory Data (Last 24 Hr):: 02/09/23 02/10/23 02/10/23 12:41 07:03 07:03 Sodium 137 Potassium 3.7 3.6 Chloride 105 Carbon Dioxide 26 BUN 3 L Creatinine 0.65 Glucose 111 H Calcium 8.7 Phosphorus 2.8 Magnesium 1.5 L Triglycerides 127 Nutrition Assessment:: Please refer to the Notes section of the EMR for the most recent handbag parts cutter note. - Assessment 02/10: * Patient had PICC line placed yesterday. Will start TPN today. * Magnesium low this morning at 1.5 mg/dL. Replaced with 2 g of IV Mag Sulfate. * Potassium and Phosphate borderline low as well this morning. Potassium was replaced with 40 mEq PO and 20 mEq IV. No phosphate replacement. * Given K, Mg and Phos are all borderline low, would consider patient at si gnificant risk for refeeding syndrome. Therefore, will start at half of goal for macronutrients today including holding off on lipids for day 1. - Plan For day #1 of TPN administration, the following will be ordered: Macronutrients Amino acids 86 grams/day Dextrose 151 grams/day Micronutrients Sodium chloride 60 mEq Sodium acetate 20 mEq Potassium phosphate 15 mMol Potassium chloride 40 mEq Potassium acetate 20 mEq Magnesium sulfate 16.24 mEq Multivitamins 10 mL Trace Elements 1 mL Thiamine 100 mg Folic acid 1 mg Total volume 1165 mL to be infused over 24 hrs will provide 860 kcal/day Labs, as indicated, will be ordered per protocol Pharmacy will continue to follow and adjust parenteral nutrition orders on a daily basis. Thank you for allowing us to participate in the care of this patient.
[2023-02-10] MEDS ORDERED: CENTRAL TPN IV SCH (16:00)
[2023-02-10] MEDS ORDERED: [UNRECOGNIZED DRUG - OTHER] IV SCH (16:00)
[2023-02-10] MEDS ORDERED: DEXTROSE 10% 1,000 ML IV PRN (16:00)
--- NOTE | 2023-02-10 18:08 | Hospitalist Progress Note ---
Date of Service February 10, 2023 Assessment & Plan (1) Colitis: (2) Sigmoid stricture: Plan: per admitting service notes with addendum: Patient referred to the ED by Dr. Ankur Sifuentes for evaluation of ongoing abdominal pain. 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 Prior to admission, patient underwent colonoscopy on 01/16 that did not show a mass but did show severe inflammation and stricture. The scope could not pass through the area of concern. Biopsy negative for dysplasia but showed hyperplastic colonic mucosa with mild inflammation. During admission, patient required PPN for nutritional support and he was treated with IV Zosyn. CT ABD/pelvis does not show fluid collection or abscess. 02/10 Hemodynamically stable Evaluated by general surgery, sigmoid stricture felt to be secondary to radiation colitis Diet advanced to soft yesterday, tolerating well so far but no BM today MiraLAX twice daily ordered Monitor closely TPN started today, tolerating well so far Monitor electrolytes Continue IV Zosyn, advancement of diet per general surgery service Pain control Monitor closely (3) Hypertension: Plan: BP controlled, continue nifedipine, losartan, propanolol (4) PAD (peripheral artery disease): (5) History of endarterectomy: (6) History of TIA (transient ischemic attack): Plan: Continue Plavix, statin, Zetia DVT PROPHYLAXIS SCDs for now plan of care discussed with patient in detail and at length all questions answered he is understanding, agreeable, comfortable with the plan of care (7) Prostate cancer: Admission and Anticipated Discharge Date Admission Date: February 06, 2023 Subjective Follow-up for sigmoid stricture, secondary to radiation colitis, etc. Seen resting in bed, comfortable, not in distress States he was having some lower abdominal discomfort this morning, resolved No BM today, positive flatus No nausea or vomiting Tolerating TPN No other symptom Review of Systems Review of Systems: all noted and negative except for above Physical Exam Physical Exam: General- oriented x 3, not in distress, speaks in sentences with no effort or accessory muscle use Eyes- anicteric Neck- no JVD Lungs- clear BS BL Heart- normal rate, regular rhythm; no murmurs Abdomen- normal bowel sounds, nondistended, soft, nontender Extremities- no pretibial edema, no calf tenderness Left upper arm-PICC line in place Neuro- alert, oriented x 3; no gross focal neurologic deficits Skin- warm & dry Results & Data Results & Data Vital Signs (Past 12 Hours) Vital Signs Temp Pulse Resp BP Pulse Ox O2 Del Method 02/10/23 15:55 37.2 C 61 18 107/67 95 Room Air 02/10/23 07:31 36.8 C 74 18 149/83 H 97 Room Air all noted and reviewed including below
[2023-02-10] MEDS: POLYETHYLENE (MIRALAX) 17 GM PACK PO SCH (20:28)
[2023-02-10] MEDS: EZETIMIBE 10 MG TABLET PO SCH (20:28)
[2023-02-10] MEDS: PROPRANOLOL HCL 60 MG LA CAP PO SCH (20:29)
[2023-02-11] MEDS: MoRPHine SULFATE 4 MG/ML 1 ML CARP\\VIAL IV PRN ×2 (02:51→09:58)
[2023-02-11] MEDS: PANTOprazole 40 MG TAB PO SCH (06:16)
[2023-02-11 07:25] LABS: BUN Creatinine Ratio 10.5 (10-20); Calcium 8.7 mg/dl (8.6-10.3); Creatinine Clr Calc Pharmacy 109.9 ml/min; Est GFR (Non-African American) 95.7 ml/min; Magnesium 1.9 mg/dl (1.7-2.4); Phosphorus 3.4 mg/dl (2.5-4.9); Potassium 4.2 mmol/L (3.5-5.1)
[2023-02-11] MEDS: busPIRone 5 MG TAB PO SCH ×2 (08:06→20:54)
[2023-02-11] MEDS: CYANOCOBALAMIN (B-12) 500 MCG TABLET PO SCH (08:06)
[2023-02-11] MEDS: POLYETHYLENE (MIRALAX) 17 GM PACK PO SCH ×2 (08:06→20:55)
[2023-02-11] MEDS: ROSUVASTATIN CALCIUM 20 MG TAB PO SCH (08:07)
[2023-02-11] MEDS: CLOPIDOGREL BISULFATE 75 MG TAB PO SCH (08:07)
[2023-02-11] MEDS: NIFEdipine EXTENDED REL 30 MG TABCR PO SCH (08:07)
[2023-02-11] MEDS: LOSARTAN POTASSIUM 50 MG TAB PO SCH (08:07)
[2023-02-11] MEDS: ADVANCED PROBIOTIC 1250 MG CAPSULE PO SCH (08:07)
[2023-02-11] MEDS: PIPERACILLIN/TAZOBACTAM 4.5 GM in DEXTROSE 5% 100 ML IV SCH ×3 (08:14→23:39)
--- NOTE | 2023-02-11 09:16 | Surgery Progress Note ---
Date of Service February 11, 2023 Assessment & Plan (1) Diverticulitis: (2) Prostate cancer: (3) Acute radiation colitis: Plan Improving slowly. Continue IV antibiotics. Continue TPN. Continue electrolyte replacement. Will need home TPN given malnutrition and deconditioning due to low oral intake. Will need help with case management for outpatient TPN and possibly IV antibiotics pending any clinical improvement in next few days. Patient would like updated by case management over phone. Continue medical management encouraged ambulation to increase GI motility Dr. Sifuentes has seen patient and agrees with above. ADDENDUM 02/11/2023 4:09 PM Discussed with case management. 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 Admission and Anticipated Discharge Date Admission Date: February 06, 2023 Supervising Physician Co-Signing Physician Notes I have seen and examined the patient personally and agree with the above assessment plan. I had a long discussion with him concerning his pathology. We will plan to continue with the IV antibiotics for now. We discussed the possible need for a more urgent surgical procedure if he does not improve significantly in the next few days. We will work on his oral intake and hopefully set him up for some outpatient nutrition. We will continue to follow. Subjective feeling about the same, no significant improvement only eating small amount of the low fiber diet, <50% of the meals still having more pain in the mornings and then not so bad during day and evening passing gas but has not had bowel movement since starting low fiber diet for last 1.[address] no fevers or chills Physical Exam Constitutional: WD/WN, vitals as above cooperative and comfortable; no acute distress and not ill appearing Gastrointestinal (Abdomen): Inspection/Auscultation: abdomen normal to inspection; abdomen not distended Percussion/Palpation: + abdomen tender (Mid abdomen and suprapubic region) and abdomen soft; no guarding, abdomen not rigid and abdomen not firm Skin: no rashes, warm and dry Psychiatric: Orientation: alert and oriented x 3 Affect: + depressed affect Results & Data Vital Signs (Past 12 Hours) Vital Signs Pulse Resp BP Pulse Ox O2 Del Method 02/11/23 08:44 63 18 125/79 97 Room Air Laboratory Results 02/11/23 02/11/23 02/10/23 Range/Units 06:11 05:57 17:49 Sodium 135 L (136-145) mmol/L Potassium 4.2 (3.5-5.1) mmol/L Chloride 101 (98-107) mmol/L Carbon Dioxide 29 (21-32) mmol/L Anion Gap 5 (3-11) BUN 8 (6-23) mg/dl Creatinine 0.76 (0.6-1.4) mg/dl Est Cr Clr Drug Dosing 109.9 ml/min Est GFR ( Amer) 111.0 ml/min Est GFR (Non-Af Amer) 95.7 ml/min BUN/Creatinine Ratio 10.5 (10-20) Glucose 101 H (70-99(Fasting)) mg/dl POC Glucose 130 H 125 H (70-99) mg/dl Calcium 8.7 (8.6-10.3) mg/dl Phosphorus 3.4 (2.5-4.9) mg/dl Magnesium 1.9 (1.7-2.4) mg/dl
[2023-02-11] MEDS ORDERED: [UNRECOGNIZED DRUG - OTHER] IV SCH (16:00)
[2023-02-11] MEDS ORDERED: CLINOLIPID 20% IV FAT EMULSION 250 ML IV SCH (16:00)
[2023-02-11] MEDS ORDERED: CENTRAL TPN IV SCH (16:00)
--- NOTE | 2023-02-11 16:13 | Hospitalist Progress Note ---
Date of Service February 11, 2023 Assessment & Plan (1) Colitis: (2) Sigmoid stricture: Plan: per previous attending with addendum Patient referred to the ED by Dr. Ankur Sfiuentes for evaluation of ongoing abdominal pain. 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 Prior to admission, patient underwent colonoscopy on 01/16 that did not show a mass but did show severe inflammation and stricture. The scope could not pass through the area of concern. Biopsy negative for dysplasia but showed hyperplastic colonic mucosa with mild inflammation. During admission, patient required PPN for nutritional support and he was treated with IV Zosyn. On admission, CT abdomen pelvis was done which showed wall thickening and fatty stranding involving the sigmoid colon concerning for acute diverticulitis versus neoplasm. Evaluated by general surgery;sigmoid stricture felt to be secondary to radiation colitis Diet advance as per surgery; tolerating well Currently on TPN Continue IV Zosyn, advancement of diet per general surgery service Pain control Monitor closely (3) Hypertension: Plan: BP controlled, continue nifedipine, losartan, propanolol (4) PAD (peripheral artery disease): (5) History of endarterectomy: (6) History of TIA (transient ischemic attack): Plan: Continue Plavix, statin, Zetia DVT PROPHYLAXIS Heparin plan of care discussed with patient in detail and at length all questions answered he is understanding, agreeable, comfortable with the plan of care Please note the above document was generated using voice recognition software. It may contain grammatical, syntax or spelling errors. Any formal questions or concerns about the content, text or information contained within the body of this dictation should be directly addressed to the provider for clarification (7) Prostate cancer: Admission and Anticipated Discharge Date Admission Date: February 06, 2023 Subjective Patient seen and examined at bedside. He is comfortably sitting up on the bed; not in any distress. Reports abdominal pain intermittently. No bowel movement since last 2 days Review of Systems Review of Systems: All systems reviewed & are unremarkable except as noted in Subjective Physical Exam Physical Exam: Constitutional: WD/WN, vitals as above, NAD, sitting up in bed, pleasant, conversing easily Respiratory: normal respiratory effort, lungs clear to auscultation, no wheeze, rales, rhonchi. Normal insp/exp effort, no accessory muscle use Cardiovascular: RRR, no murmur, no edema Vessels: no JVD or carotid bruit Chest: normal inspection of chest Abdomen: Soft, nontender. Musculoskeletal: no cyanosis or clubbing, extremities motor strength 5/5 Skin: no rashes, warm and dry normal turgor Neurologic: PERRL, EOMI, accommodation nl, no face palsy, no dysarthria CN's II- XI intact bilaterally and moves all extremities Psychiatric: A+Ox3, euthymic affect Results & Data Results & Data Vital Signs (Past 12 Hours) Vital Signs Temp Pulse Resp BP Pulse Ox O2 Del Method 02/11/23 15:45 36.8 C 72 18 117/72 96 Room Air 02/11/23 08:44 63 18 125/79 97 Room Air Laboratory Results Laboratory Results WBC 4.74 K/ul (4.8-10.8) L 02/08/23 08:22 RBC 3.47 M/uL (4.70-6.10) L 02/08/23 08:22 Hgb 10.6 g/dl (14.0-18.0) L 02/08/23 08:22 Hct 31.1 % (42.0-52.0) L 02/08/23 08:22 MCV 89.6 fL (80.0-100.0) 02/08/23 08:22 MCH 30.5 pg (25.0-34.0) 02/08/23 08:22 MCHC 34.1 g/dL (32.0-36.0) 02/08/23 08:22 RDW Std Deviation 44.1 fL (36.4-46.3) 02/08/23 08:22 RDW Coeff of Paulette 13.4 % (11.5-14.5) 02/08/23 08:22 Plt Count 419 K/uL (130-400) H 02/08/23 08:22 MPV 9.8 fL (9.4-12.4) 02/08/23 08:22 Immature Gran % (Auto) 0.6 % 02/08/23 08:22 Neut % (Auto) 67.8 % 02/08/23 08:22 Lymph % (Auto) 8.0 % 02/08/23 08:22 Nicholas % (Auto) 15.8 % 02/08/23 08:22 Eos % (Auto) 6.5 % 02/08/23 08:22 Baso % (Auto) 1.3 % 02/08/23 08:22 Neut # (Auto) 3.21 K/uL (1.40-6.50) 02/08/23 08:22 Lymph # (Auto) 0.38 K/uL (1.2-3.4) L 02/08/23 08:22 Nicholas # (Auto) 0.75 K/uL (0.11-0.59) H 02/08/23 08:22 Eos # (Auto) 0.31 K/uL (0-0.50) 02/08/23 08:22 Baso # (Auto) 0.06 K/uL (0-0.2) 02/08/23 08:22 Immature Gran # (Auto) 0.03 K/uL (0.01-0.20) 02/08/23 08:22 Sodium 135 mmol/L (136-145) L 02/11/23 06:11 Potassium 4.2 mmol/L (3.5-5.1) 02/11/23 06:11 Chloride 101 mmol/L (98-107) 02/11/23 06:11 Carbon Dioxide 29 mmol/L (21-32) 02/11/23 06:11 Anion Gap 5 (3-11) 02/11/23 06:11 BUN 8 mg/dl (6-23) 02/11/23 06:11 Creatinine 0.76 mg/dl (0.6-1.4) 02/11/23 06:11 Est Cr Clr Drug Dosing 109.9 ml/min 02/11/23 06:11 Est GFR ( Amer) 111.0 ml/min 02/11/23 06:11 Est GFR (Non-Af Amer) 95.7 ml/min 02/11/23 06:11 BUN/Creatinine Ratio 10.5 (10-20) 02/11/23 06:11 Glucose 101 mg/dl (70-99(Fasting)) H 02/11/23 06:11 POC Glucose 124 mg/dl (70-99) H 02/11/23 12:08 Calcium 8.7 mg/dl (8.6-10.3) 02/11/23 06:11 Phosphorus 3.4 mg/dl (2.5-4.9) 02/11/23 06:11 Magnesium 1.9 mg/dl (1.7-2.4) 02/11/23 06:11 Total Bilirubin 0.5 mg/dl (0.2-1.0) 02/06/23 15:37 AST 29 U/L (13-39) 02/06/23 15:37 ALT 34 U/L (7-52) 02/06/23 15:37 Alkaline Phosphatase 105 U/L (34-104) H 02/06/23 15:37 Total Protein 7.9 gm/dl (6.0-8.3) 02/06/23 15:37 Albumin 3.8 gm/dl (3.4-5.0) 02/06/23 15:37 Globulin 4.1 gm/dl (2.5-4.0) H 02/06/23 15:37 Albumin/Globulin Ratio 0.9 (0.9-2) 02/06/23 15:37 Triglycerides 127 mg/dl (0-150) 02/10/23 07:03 Lipase 28 U/L (11-82) 02/06/23 15:37 Urine Color Dark Yellow 02/06/23 21:50 Urine Appearance Clear (Clear) 02/06/23 21:50 Urine pH 6.5 (4.5-7.5) 02/06/23 21:50 Ur Specific [place] > 1.045 (1.000-1.030) H 02/06/23 21:50 Urine Protein 1+ (Negative) H 02/06/23 21:50 Urine Glucose (UA) Negative (Negative) 02/06/23 21:50 Urine Ketones 1+ (Negative) H 02/06/23 21:50 Urine Blood Negative (Negative) 02/06/23 21:50 Urine Nitrite Negative (Negative) 02/06/23 21:50 Urine Bilirubin 1+ (Negative) H 02/06/23 21:50 Urine Urobilinogen Negative (Negative) 02/06/23 21:50 Ur Leukocyte Esterase Negative (Negative) 02/06/23 21:50 Urine WBC (Auto) 1-5 /hpf (0-5) 02/06/23 21:50 Urine RBC (Auto) 0-4 /hpf (0-4) 02/06/23 21:50 U Hyaline Cast (Auto) 1-5 /lpf (0-5) 02/06/23 21:50 U Epithel Cells (Auto) 10-20 /lpf (0-5) H 02/06/23 21:50 Urine Bacteria (Auto) Negative (Negative) 02/06/23 21:50 Stl C. diff Tox B Gene Negative Cdiff Gene (Neg) 02/07/23 13:25 SARS-CoV-2, RNA, NAAT NEGATIVE (NEGATIVE) 02/06/23 18:35 Impressions Abdomen/Pelvis CT 02/06/23 17:30 Exam(s): CT ABDOMEN + PELVIS With Contrast IV Amt: 94ml EXAM: CT Abdomen and Pelvis With Intravenous Contrast CLINICAL HISTORY: Reason for exam: diverticulitis. TECHNIQUE: Axial computed tomography images of the abdomen and pelvis with intravenous contrast. CTDI is 24.2 mGy and DLP is 1296.77 mGy-cm. Automated exposure control was utilized for the study. A dose lowering technique was utilized adhering to the principles of ALARA. CONTRAST: Patient received 94ml of IV contrast COMPARISON: CT abdomen/pelvis on 01/22/2023 FINDINGS: Lung bases: Unremarkable. No mass. No consolidation. Heart: Coronary artery calcifications. ABDOMEN: Liver: Unremarkable. No mass. Gallbladder and bile ducts: Prior cholecystectomy. Probable postcholecystectomy ductal ectasia. Pancreas: Unremarkable. No mass. No ductal dilation. Spleen: Unremarkable. No splenomegaly. Adrenals: Unremarkable. No mass. Kidneys and ureters: Nonspecific bilateral perinephric fat stranding. Small right renal cyst. No hydronephrosis or obstructing stone. Stomach and bowel: Diverticulosis. Wall thickening and fat stranding involving the sigmoid colon, concerning for acute diverticulitis versus neoplasm. Further evaluation could be performed with colonoscopy during follow up if clinically indicated. Evaluation of the stomach is limited by underdistention. No small bowel obstruction. PELVIS: Appendix: Normal appendix. Bladder: Bladder wall thickening is concerning for active infiltrate changes versus cystitis. Please correlate with urinalysis. Reproductive: Unremarkable as visualized. ABDOMEN and PELVIS: Intraperitoneal space: Unremarkable. No free air. No significant fluid collection. Bones/joints: Postsurgical changes at L4-5. Degenerative changes of the spine. No acute fracture. No dislocation. Soft tissues: Small fat-containing umbilical hernia. Vasculature: Atherosclerotic changes of the vasculature. No abdominal aortic aneurysm or dissection. Severe stenoses in the common iliac arteries. Lymph nodes: Mildly prominent pericolonic lymph nodes. IMPRESSION: 1. Diverticulosis. Wall thickening and fat stranding involving the sigmoid colon, concerning for acute diverticulitis versus neoplasm. Further evaluation could be performed with colonoscopy during follow up. Mildly prominent pericolonic lymph nodes raises concern for colonic neoplasm and possible papa metastases. 2. Bladder wall thickening is concerning for active infiltrate changes versus cystitis. Please correlate with urinalysis. Electronically signed by: Viktoria Funk M.D. 02/06/23 19:57 PM
[2023-02-11] MEDS: PROPRANOLOL HCL 60 MG LA CAP PO SCH (20:55)
[2023-02-11] MEDS: EZETIMIBE 10 MG TABLET PO SCH (20:55)
[2023-02-11] MEDS: HEPARIN SOD 5,000 UNIT/0.5 ML VIAL SQ SCH (21:03)
[2023-02-12] MEDS: HEPARIN SOD 5,000 UNIT/0.5 ML VIAL SQ SCH ×3 (05:54→22:03)
[2023-02-12] MEDS: PANTOprazole 40 MG TAB PO SCH (05:55)
[2023-02-12] MEDS: PIPERACILLIN/TAZOBACTAM 4.5 GM in DEXTROSE 5% 100 ML IV SCH ×2 (08:05→16:25)
[2023-02-12] MEDS: NIFEdipine EXTENDED REL 30 MG TABCR PO SCH (08:06)
[2023-02-12] MEDS: CLOPIDOGREL BISULFATE 75 MG TAB PO SCH (08:06)
[2023-02-12] MEDS: ROSUVASTATIN CALCIUM 20 MG TAB PO SCH (08:06)
[2023-02-12] MEDS: ADVANCED PROBIOTIC 1250 MG CAPSULE PO SCH (08:06)
[2023-02-12] MEDS: CYANOCOBALAMIN (B-12) 500 MCG TABLET PO SCH (08:07)
[2023-02-12] MEDS: busPIRone 5 MG TAB PO SCH ×2 (08:07→20:16)
[2023-02-12] MEDS: LOSARTAN POTASSIUM 50 MG TAB PO SCH (08:07)
[2023-02-12] MEDS: POLYETHYLENE (MIRALAX) 17 GM PACK PO SCH ×2 (08:08→20:15)
[2023-02-12 08:12] LABS: BUN Creatinine Ratio 17.9 (10-20); Calcium 8.5 mg/dl (8.6-10.3); Creatinine Clr Calc Pharmacy 124.9 ml/min; Est GFR (African American) 116.9 ml/min; Est GFR (Non-African American) 100.8 ml/min; Magnesium 1.7 mg/dl (1.7-2.4); Phosphorus 3.1 mg/dl (2.5-4.9)
--- NOTE | 2023-02-12 12:10 | Surgery Progress Note ---
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 Continue IV antibiotics. Continue TPN while inpatient. Continue electrolyte replacement. Continue medical management encouraged ambulation to increase GI motility Will await Nutrition re-evaluation today. Need to determine if patient is getting enough nutrition orally. Likely needs educated on good nutritional options/meals for home to increase protein intake. Dr. Sifuentes has seen patient and agrees with above. Admission and Anticipated Discharge Date Admission Date: February 06, 2023 Subjective feeling better now than this morning had 6 loose bowel movements this morning with a lot of abdominal pain with bowel movements tolerated soft diet this morning for breakfast, no pain with eating, ate about 50% no n,v Discussed with patient his meals at home. States he usually has corn flakes with Stevia in morning and then noodles with soup and some rotisserie chicken and supplements with Glucerna. Physical Exam 2 Constitutional: WD/WN, vitals as above cooperative and comfortable; no acute distress and not ill appearing Respiratory: normal respiratory effort; no respiratory distress Gastrointestinal (Abdomen): Percussion/Palpation: + abdomen tender (suprapubic, low mid abdomen) and abdomen soft; no guarding, abdomen not rigid and abdomen not firm Skin: no rashes, warm and dry Psychiatric: Orientation: alert and oriented x 3 Results & Data Vital Signs (Past 12 Hours) Vital Signs Temp Pulse Resp BP Pulse Ox O2 Del Method 02/12/23 07:19 37 C 74 16 120/71 98 Room Air Laboratory Results 02/12/23 02/12/23 02/11/23 Range/Units 07:25 05:52 23:40 Sodium 135 L (136-145) mmol/L Potassium 4.0 (3.5-5.1) mmol/L Chloride 103 (98-107) mmol/L Carbon Dioxide 28 (21-32) mmol/L Anion Gap 4 (3-11) BUN 12 (6-23) mg/dl Creatinine 0.67 (0.6-1.4) mg/dl Est Cr Clr Drug Dosing 124.9 ml/min Est GFR ( Amer) 116.9 ml/min Est GFR (Non-Af Amer) 100.8 ml/min BUN/Creatinine Ratio 17.9 (10-20) Glucose 124 H (70-99(Fasting)) mg/dl POC Glucose 112 H 128 H (70-99) mg/dl Calcium 8.5 L (8.6-10.3) mg/dl Phosphorus 3.1 (2.5-4.9) mg/dl Magnesium 1.7 (1.7-2.4) mg/dl 02/11/23 02/11/23 Range/Units 18:04 12:08 Sodium (136-145) mmol/L Potassium (3.5-5.1) mmol/L Chloride (98-107) mmol/L Carbon Dioxide (21-32) mmol/L Anion Gap (3-11) BUN (6-23) mg/dl Creatinine (0.6-1.4) mg/dl Est Cr Clr Drug Dosing ml/min Est GFR ( Amer) ml/min Est GFR (Non-Af Amer) ml/min BUN/Creatinine Ratio (10-20) Glucose (70-99(Fasting)) mg/dl POC Glucose 145 H 124 H (70-99) mg/dl Calcium (8.6-10.3) mg/dl Phosphorus (2.5-4.9) mg/dl Magnesium (1.7-2.4) mg/dl
[2023-02-12] MEDS: MoRPHine SULFATE 4 MG/ML 1 ML CARP\\VIAL IV PRN ×2 (13:21→20:08)
--- NOTE | 2023-02-12 15:01 | Hospitalist Progress Note ---
Date of Service February 12, 2023 Assessment & Plan (1) Colitis: (2) Sigmoid stricture: Plan: per previous attending with addendum Patient referred to the ED by Dr. Ankur Sifuentes for evaluation of ongoing abdominal pain. Patient recently admitted to [facility] 01/22 through 01/28 for sigmoid stricture due to radiation colitis and/or diverticulitis. Prior to admission, patient underwent colonoscopy on 01/16 that did not show a mass but did show severe inflammation and stricture. The scope could not pass through the area of concern. Biopsy negative for dysplasia but showed hyperplastic colonic mucosa with mild inflammation. During admission, patient required PPN for nutritional support and he was treated with IV Zosyn. On admission, CT abdomen pelvis was done which showed wall thickening and fatty stranding involving the sigmoid colon concerning for acute diverticulitis versus neoplasm. Evaluated by general surgery;sigmoid stricture felt to be secondary to radiation colitis Diet advance as per surgery; tolerating well Currently on TPN Continue IV Zosyn Pain control Monitor closely (3) Hypertension: Plan: BP controlled, continue nifedipine, losartan, propanolol (4) PAD (peripheral artery disease): (5) History of endarterectomy: (6) History of TIA (transient ischemic attack): Plan: Continue Plavix, statin, Zetia DVT PROPHYLAXIS Heparin plan of care discussed with patient in detail and at length all questions answered he is understanding, agreeable, comfortable with the plan of care Please note the above document was generated using voice recognition software. It may contain grammatical, syntax or spelling errors. Any formal questions or concerns about the content, text or information contained within the body of this dictation should be directly addressed to the provider for clarification (7) Prostate cancer: Admission and Anticipated Discharge Date Admission Date: February 06, 2023 Subjective Patient seen and examined at bedside. He reports multiple bowel movement today and lower abdominal pain. Reports tolerating diet well. Review of Systems Review of Systems: All systems reviewed & are unremarkable except as noted in Subjective Physical Exam Physical Exam: Constitutional: WD/WN, vitals as above, NAD, sitting up in bed, pleasant, conversing easily Respiratory: normal respiratory effort, lungs clear to auscultation, no wheeze, rales, rhonchi. Normal insp/exp effort, no accessory muscle use Cardiovascular: RRR, no murmur, no edema Vessels: no JVD or carotid bruit Chest: normal inspection of chest Abdomen: Tenderness present in lower aspect of the abdomen. Musculoskeletal: no cyanosis or clubbing, extremities motor strength 5/5 Skin: no rashes, warm and dry normal turgor Neurologic: PERRL, EOMI, accommodation nl, no face palsy, no dysarthria CN's II- XI intact bilaterally and moves all extremities Psychiatric: A+Ox3, euthymic affect Results & Data Results & Data Vital Signs (Past 12 Hours) Vital Signs Temp Pulse Resp BP Pulse Ox O2 Del Method 02/12/23 07:19 37 C 74 16 120/71 98 Room Air Laboratory Results Laboratory Results WBC 4.74 K/ul (4.8-10.8) L 02/08/23 08:22 RBC 3.47 M/uL (4.70-6.10) L 02/08/23 08:22 Hgb 10.6 g/dl (14.0-18.0) L 02/08/23 08:22 Hct 31.1 % (42.0-52.0) L 02/08/23 08:22 MCV 89.6 fL (80.0-100.0) 02/08/23 08:22 MCH 30.5 pg (25.0-34.0) 02/08/23 08:22 MCHC 34.1 g/dL (32.0-36.0) 02/08/23 08:22 RDW Std Deviation 44.1 fL (36.4-46.3) 02/08/23 08:22 RDW Coeff of Paulette 13.4 % (11.5-14.5) 02/08/23 08:22 Plt Count 419 K/uL (130-400) H 02/08/23 08:22 MPV 9.8 fL (9.4-12.4) 02/08/23 08:22 Immature Gran % (Auto) 0.6 % 02/08/23 08:22 Neut % (Auto) 67.8 % 02/08/23 08:22 Lymph % (Auto) 8.0 % 02/08/23 08:22 [place] % (Auto) 15.8 % 02/08/23 08:22 Eos % (Auto) 6.5 % 02/08/23 08:22 Baso % (Auto) 1.3 % 02/08/23 08:22 Neut # (Auto) 3.21 K/uL (1.40-6.50) 02/08/23 08:22 Lymph # (Auto) 0.38 K/uL (1.2-3.4) L 02/08/23 08:22 [place] # (Auto) 0.75 K/uL (0.11-0.59) H 02/08/23 08:22 Eos # (Auto) 0.31 K/uL (0-0.50) 02/08/23 08:22 Baso # (Auto) 0.06 K/uL (0-0.2) 02/08/23 08:22 Immature Gran # (Auto) 0.03 K/uL (0.01-0.20) 02/08/23 08:22 Sodium 135 mmol/L (136-145) L 02/12/23 07:25 Potassium 4.0 mmol/L (3.5-5.1) 02/12/23 07:25 Chloride 103 mmol/L (98-107) 02/12/23 07:25 Carbon Dioxide 28 mmol/L (21-32) 02/12/23 07:25 Anion Gap 4 (3-11) 02/12/23 07:25 BUN 12 mg/dl (6-23) 02/12/23 07:25 Creatinine 0.67 mg/dl (0.6-1.4) 02/12/23 07:25 Est Cr Clr Drug Dosing 124.9 ml/min 02/12/23 07:25 Est GFR ( Amer) 116.9 ml/min 02/12/23 07:25 Est GFR (Non-Af Amer) 100.8 ml/min 02/12/23 07:25 BUN/Creatinine Ratio 17.9 (10-20) 02/12/23 07:25 Glucose 124 mg/dl (70-99(Fasting)) H 02/12/23 07:25 POC Glucose 123 mg/dl (70-99) H 02/12/23 12:05 Calcium 8.5 mg/dl (8.6-10.3) L 02/12/23 07:25 Phosphorus 3.1 mg/dl (2.5-4.9) 02/12/23 07:25 Magnesium 1.7 mg/dl (1.7-2.4) 02/12/23 07:25 Total Bilirubin 0.5 mg/dl (0.2-1.0) 02/06/23 15:37 AST 29 U/L (13-39) 02/06/23 15:37 ALT 34 U/L (7-52) 02/06/23 15:37 Alkaline Phosphatase 105 U/L (34-104) H 02/06/23 15:37 Total Protein 7.9 gm/dl (6.0-8.3) 02/06/23 15:37 Albumin 3.8 gm/dl (3.4-5.0) 02/06/23 15:37 Globulin 4.1 gm/dl (2.5-4.0) H 02/06/23 15:37 Albumin/Globulin Ratio 0.9 (0.9-2) 02/06/23 15:37 Triglycerides 127 mg/dl (0-150) 02/10/23 07:03 Lipase 28 U/L (11-82) 02/06/23 15:37 Urine Color Dark Yellow 02/06/23 21:50 Urine Appearance Clear (Clear) 02/06/23 21:50 Urine pH 6.5 (4.5-7.5) 02/06/23 21:50 Ur Specific [place] > 1.045 (1.000-1.030) H 02/06/23 21:50 Urine Protein 1+ (Negative) H 02/06/23 21:50 Urine Glucose (UA) Negative (Negative) 02/06/23 21:50 Urine Ketones 1+ (Negative) H 02/06/23 21:50 Urine Blood Negative (Negative) 02/06/23 21:50 Urine Nitrite Negative (Negative) 02/06/23 21:50 Urine Bilirubin 1+ (Negative) H 02/06/23 21:50 Urine Urobilinogen Negative (Negative) 02/06/23 21:50 Ur Leukocyte Esterase Negative (Negative) 02/06/23 21:50 Urine WBC (Auto) 1-5 /hpf (0-5) 02/06/23 21:50 Urine RBC (Auto) 0-4 /hpf (0-4) 02/06/23 21:50 U Hyaline Cast (Auto) 1-5 /lpf (0-5) 02/06/23 21:50 U Epithel Cells (Auto) 10-20 /lpf (0-5) H 02/06/23 21:50 Urine Bacteria (Auto) Negative (Negative) 02/06/23 21:50 Stl C. diff Tox B Gene Negative Cdiff Gene (Neg) 02/07/23 13:25 SARS-CoV-2, RNA, NAAT NEGATIVE (NEGATIVE) 02/06/23 18:35 Impressions Abdomen/Pelvis CT 02/06/23 17:30 Exam(s): CT ABDOMEN + PELVIS With Contrast IV Amt: 94ml EXAM: CT Abdomen and Pelvis With Intravenous Contrast CLINICAL HISTORY: Reason for exam: diverticulitis. TECHNIQUE: Axial computed tomography images of the abdomen and pelvis with intravenous contrast. CTDI is 24.2 mGy and DLP is 1296.77 mGy-cm. Automated exposure control was utilized for the study. A dose lowering technique was utilized adhering to the principles of ALARA. CONTRAST: Patient received 94ml of IV contrast COMPARISON: CT abdomen/pelvis on 01/22/2023 FINDINGS: Lung bases: Unremarkable. No mass. No consolidation. Heart: Coronary artery calcifications. ABDOMEN: Liver: Unremarkable. No mass. Gallbladder and bile ducts: Prior cholecystectomy. Probable postcholecystectomy ductal ectasia. Pancreas: Unremarkable. No mass. No ductal dilation. Spleen: Unremarkable. No splenomegaly. Adrenals: Unremarkable. No mass. Kidneys and ureters: Nonspecific bilateral perinephric fat stranding. Small right renal cyst. No hydronephrosis or obstructing stone. Stomach and bowel: Diverticulosis. Wall thickening and fat stranding involving the sigmoid colon, concerning for acute diverticulitis versus neoplasm. Further evaluation could be performed with colonoscopy during follow up if clinically indicated. Evaluation of the stomach is limited by underdistention. No small bowel obstruction. PELVIS: Appendix: Normal appendix. Bladder: Bladder wall thickening is concerning for active infiltrate changes versus cystitis. Please correlate with urinalysis. Reproductive: Unremarkable as visualized. ABDOMEN and PELVIS: Intraperitoneal space: Unremarkable. No free air. No significant fluid collection. Bones/joints: Postsurgical changes at L4-5. Degenerative changes of the spine. No acute fracture. No dislocation. Soft tissues: Small fat-containing umbilical hernia. Vasculature: Atherosclerotic changes of the vasculature. No abdominal aortic aneurysm or dissection. Severe stenoses in the common iliac arteries. Lymph nodes: Mildly prominent pericolonic lymph nodes. IMPRESSION: 1. Diverticulosis. Wall thickening and fat stranding involving the sigmoid colon, concerning for acute diverticulitis versus neoplasm. Further evaluation could be performed with colonoscopy during follow up. Mildly prominent pericolonic lymph nodes raises concern for colonic neoplasm and possible papa metastases. 2. Bladder wall thickening is concerning for active infiltrate changes versus cystitis. Please correlate with urinalysis. Electronically signed by: Viktoria Funk M.D. 02/06/23 19:57 PM
[2023-02-12] MEDS ORDERED: CENTRAL TPN IV SCH (16:00)
[2023-02-12] MEDS ORDERED: [UNRECOGNIZED DRUG - OTHER] IV SCH (16:00)
[2023-02-12] MEDS ORDERED: CLINOLIPID 20% IV FAT EMULSION 250 ML IV SCH (16:00)
[2023-02-12] MEDS: EZETIMIBE 10 MG TABLET PO SCH (20:16)
[2023-02-12] MEDS: PROPRANOLOL HCL 60 MG LA CAP PO SCH (20:16)
[2023-02-12] MEDS: traMADol HCL 50 MG TABLET PO PRN (22:02)
[2023-02-12] MEDS: STOP CLINOLIPID SCH (22:03)
[2023-02-13] MEDS: PIPERACILLIN/TAZOBACTAM 4.5 GM in DEXTROSE 5% 100 ML IV SCH ×2 (00:30→08:50)
[2023-02-13] MEDS: MoRPHine SULFATE 4 MG/ML 1 ML CARP\\VIAL IV PRN ×4 (02:02→22:17)
[2023-02-13] MEDS: HEPARIN SOD 5,000 UNIT/0.5 ML VIAL SQ SCH ×3 (05:26→22:23)
[2023-02-13] MEDS: PANTOprazole 40 MG TAB PO SCH (05:28)
[2023-02-13 07:14] LABS: Phosphorus 4.2 mg/dl (2.5-4.9)
[2023-02-13] MEDS: CYANOCOBALAMIN (B-12) 500 MCG TABLET PO SCH (08:21)
[2023-02-13] MEDS: ADVANCED PROBIOTIC 1250 MG CAPSULE PO SCH (08:21)
[2023-02-13] MEDS: LOSARTAN POTASSIUM 50 MG TAB PO SCH (08:21)
[2023-02-13] MEDS: POLYETHYLENE (MIRALAX) 17 GM PACK PO SCH (08:21)
[2023-02-13] MEDS: CLOPIDOGREL BISULFATE 75 MG TAB PO SCH (08:21)
[2023-02-13] MEDS: busPIRone 5 MG TAB PO SCH ×2 (08:21→20:22)
[2023-02-13] MEDS: NIFEdipine EXTENDED REL 30 MG TABCR PO SCH (08:21)
[2023-02-13] MEDS: ROSUVASTATIN CALCIUM 20 MG TAB PO SCH (08:21)
--- NOTE | 2023-02-13 08:26 | Surgery Progress Note ---
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 Would recommend discontinuing the IV Antibiotics as he has had 7 days of IV antibiotics with no fevers and no leukocytosis. If there was infectious process , this has likely been treated with the 7 days of IV abx. Would consider continuing TPN while inpatient, he seems to be doing well with oral intake eating about 50% of meals and weight is up since last Nutrition assessment on 02/08/23. Nutrition educated patient on high protein low fiber protein shakes and meals for home. Would consider 1-2 days of IV steroids to help with inflammation Continue medical management encouraged ambulation to increase GI motility Will discuss with hospitalist team and case management about recommendations above. Dr. Sifuentes has seen patient and agrees with above. Admission and Anticipated Discharge Date Admission Date: February 06, 2023 Subjective feeling okay this morning had pain with bowel movements yesterday still tolerated diet, eating about 50%. Talked with Nutrition yesterday Physical Exam Constitutional: WD/WN, vitals as above cooperative and comfortable; no acute distress and not ill appearing Respiratory: normal respiratory effort; no respiratory distress Skin: no rashes, warm and dry Psychiatric: Orientation: alert and oriented x 3 Results & Data Vital Signs (Past 12 Hours) Vital Signs Temp Pulse Resp BP Pulse Ox O2 Del Method 02/13/23 07:52 36.6 C 65 17 112/72 95 Room Air Laboratory Results 02/13/23 02/13/23 02/13/23 Range/Units 06:27 05:28 00:35 Sodium Pending Potassium Pending Chloride Pending Carbon Dioxide Pending Anion Gap Pending BUN Pending Creatinine Pending Est Cr Clr Drug Dosing Pending Est GFR ( Amer) Pending Est GFR (Non-Af Amer) Pending BUN/Creatinine Ratio Pending Glucose Pending POC Glucose 121 H 128 H (70-99) mg/dl Calcium Pending Phosphorus 4.2 D (2.5-4.9) mg/dl Magnesium Pending 02/12/23 02/12/23 Range/Units 18:38 12:05 Sodium Potassium Chloride Carbon Dioxide Anion Gap BUN Creatinine Est Cr Clr Drug Dosing Est GFR ( Amer) Est GFR (Non-Af Amer) BUN/Creatinine Ratio Glucose POC Glucose 109 H 123 H (70-99) mg/dl Calcium Phosphorus (2.5-4.9) mg/dl Magnesium
[2023-02-13] MEDS: methylPREDNISolone 40 MG in SYRINGE 0 ML IV SCH (10:34)
[2023-02-13 10:40] LABS: BUN Creatinine Ratio 25.8 (10-20); Calcium 8.7 mg/dl (8.6-10.3); Creatinine Clr Calc Pharmacy 126.8 ml/min; Est GFR (African American) 117.6 ml/min; Est GFR (Non-African American) 101.5 ml/min; Magnesium 1.8 mg/dl (1.7-2.4); Potassium 4.1 mmol/L (3.5-5.1)
[2023-02-13] MEDS: traMADol HCL 50 MG TABLET PO PRN (11:08)
--- NOTE | 2023-02-13 15:20 | Hospitalist Progress Note ---
Date of Service February 13, 2023 Assessment & Plan (1) Colitis: (2) Sigmoid stricture: Plan: per previous attending with addendum Patient referred to the ED by Dr. Ankur Sifuentes for evaluation of ongoing abdominal pain. Patient recently admitted to [facility] 01/22 through 01/28 for sigmoid stricture due to radiation colitis and/or diverticulitis. Prior to admission, patient underwent colonoscopy on 01/16 that did not show a mass but did show severe inflammation and stricture. The scope could not pass through the area of concern. Biopsy negative for dysplasia but showed hyperplastic colonic mucosa with mild inflammation. During admission, patient required PPN for nutritional support and he was treated with IV Zosyn. On admission, CT abdomen pelvis was done which showed wall thickening and fatty stranding involving the sigmoid colon concerning for acute diverticulitis versus neoplasm. Evaluated by general surgery;sigmoid stricture felt to be secondary to radiation colitis Diet advance as per surgery; tolerating well Currently on TPN; will be discharged home on oral diet. Discussion done with nutrition, general surgery. Completed 7-day course of Zosyn. 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 It may contain grammatical, syntax or spelling errors. Any formal questions or concerns about the content, text or information contained within the body of this dictation should be directly addressed to the provider for clarification (7) Prostate cancer: Admission and Anticipated Discharge Date Admission Date: February 06, 2023 Subjective Patient seen and examined at bedside. He reports intermittent abdominal pain. Able to tolerate oral diet well. Review of Systems Review of Systems: All systems reviewed & are unremarkable except as noted in Subjective Physical Exam Physical Exam: Constitutional: WD/WN, vitals as above, NAD, sitting up in bed, pleasant, conversing easily Respiratory: normal respiratory effort, lungs clear to auscultation, no wheeze, rales, rhonchi. Normal insp/exp effort, no accessory muscle use Cardiovascular: RRR, no murmur, no edema Vessels: no JVD or carotid bruit Chest: normal inspection of chest Abdomen: Tenderness present in lower aspect of the abdomen. Musculoskeletal: no cyanosis or clubbing, extremities motor strength 5/5 Skin: no rashes, warm and dry normal turgor Neurologic: PERRL, EOMI, accommodation nl, no face palsy, no dysarthria CN's II- XI intact bilaterally and moves all extremities Psychiatric: A+Ox3, euthymic affect Results & Data Results & Data Vital Signs (Past 12 Hours) Vital Signs Temp Pulse Resp BP Pulse Ox O2 Del Method 02/13/23 14:31 36.8 C 87 16 102/67 95 Room Air 02/13/23 07:52 36.6 C 65 17 112/72 95 Room Air Laboratory Results Laboratory Results WBC 4.74 K/ul (4.8-10.8) L 02/08/23 08:22 RBC 3.47 M/uL (4.70-6.10) L 02/08/23 08:22 Hgb 10.6 g/dl (14.0-18.0) L 02/08/23 08:22 Hct 31.1 % (42.0-52.0) L 02/08/23 08:22 MCV 89.6 fL (80.0-100.0) 02/08/23 08:22 MCH 30.5 pg (25.0-34.0) 02/08/23 08:22 MCHC 34.1 g/dL (32.0-36.0) 02/08/23 08:22 RDW Std Deviation 44.1 fL (36.4-46.3) 02/08/23 08:22 RDW Coeff of Paulette 13.4 % (11.5-14.5) 02/08/23 08:22 Plt Count 419 K/uL (130-400) H 02/08/23 08:22 MPV 9.8 fL (9.4-12.4) 02/08/23 08:22 Immature Gran % (Auto) 0.6 % 02/08/23 08:22 Neut % (Auto) 67.8 % 02/08/23 08:22 Lymph % (Auto) 8.0 % 02/08/23 08:22 [place] % (Auto) 15.8 % 02/08/23 08:22 Eos % (Auto) 6.5 % 02/08/23 08:22 Baso % (Auto) 1.3 % 02/08/23 08:22 Neut # (Auto) 3.21 K/uL (1.40-6.50) 02/08/23 08:22 Lymph # (Auto) 0.38 K/uL (1.2-3.4) L 02/08/23 08:22 [place] # (Auto) 0.75 K/uL (0.11-0.59) H 02/08/23 08:22 Eos # (Auto) 0.31 K/uL (0-0.50) 02/08/23 08:22 Baso # (Auto) 0.06 K/uL (0-0.2) 02/08/23 08:22 Immature Gran # (Auto) 0.03 K/uL (0.01-0.20) 02/08/23 08:22 Sodium 136 mmol/L (136-145) 02/13/23 06:27 Potassium 4.1 mmol/L (3.5-5.1) 02/13/23 06:27 Chloride 104 mmol/L (98-107) 02/13/23 06:27 Carbon Dioxide 27 mmol/L (21-32) 02/13/23 06:27 Anion Gap 5 (3-11) 02/13/23 06:27 BUN 17 mg/dl (6-23) 02/13/23 06:27 Creatinine 0.66 mg/dl (0.6-1.4) 02/13/23 06:27 Est Cr Clr Drug Dosing 126.8 ml/min 02/13/23 06:27 Est GFR ( Amer) 117.6 ml/min 02/13/23 06:27 Est GFR (Non-Af Amer) 101.5 ml/min 02/13/23 06:27 BUN/Creatinine Ratio 25.8 (10-20) H 02/13/23 06:27 Glucose 119 mg/dl (70-99(Fasting)) H 02/13/23 06:27 POC Glucose 106 mg/dl (70-99) H 02/13/23 11:57 Calcium 8.7 mg/dl (8.6-10.3) 02/13/23 06:27 Phosphorus 4.2 mg/dl (2.5-4.9) D 02/13/23 06:27 Magnesium 1.8 mg/dl (1.7-2.4) 02/13/23 06:27 Total Bilirubin 0.5 mg/dl (0.2-1.0) 02/06/23 15:37 AST 29 U/L (13-39) 02/06/23 15:37 ALT 34 U/L (7-52) 02/06/23 15:37 Alkaline Phosphatase 105 U/L (34-104) H 02/06/23 15:37 Total Protein 7.9 gm/dl (6.0-8.3) 02/06/23 15:37 Albumin 3.8 gm/dl (3.4-5.0) 02/06/23 15:37 Globulin 4.1 gm/dl (2.5-4.0) H 02/06/23 15:37 Albumin/Globulin Ratio 0.9 (0.9-2) 02/06/23 15:37 Triglycerides 127 mg/dl (0-150) 02/10/23 07:03 Lipase 28 U/L (11-82) 02/06/23 15:37 Carcinoembryonic Ag 1.5 ng/ml (0-2.5) 02/13/23 09:02 Urine Color Dark Yellow 02/06/23 21:50 Urine Appearance Clear (Clear) 02/06/23 21:50 Urine pH 6.5 (4.5-7.5) 02/06/23 21:50 Ur Specific [place] > 1.045 (1.000-1.030) H 02/06/23 21:50 Urine Protein 1+ (Negative) H 02/06/23 21:50 Urine Glucose (UA) Negative (Negative) 02/06/23 21:50 Urine Ketones 1+ (Negative) H 02/06/23 21:50 Urine Blood Negative (Negative) 02/06/23 21:50 Urine Nitrite Negative (Negative) 02/06/23 21:50 Urine Bilirubin 1+ (Negative) H 02/06/23 21:50 Urine Urobilinogen Negative (Negative) 02/06/23 21:50 Ur Leukocyte Esterase Negative (Negative) 02/06/23 21:50 Urine WBC (Auto) 1-5 /hpf (0-5) 02/06/23 21:50 Urine RBC (Auto) 0-4 /hpf (0-4) 02/06/23 21:50 U Hyaline Cast (Auto) 1-5 /lpf (0-5) 02/06/23 21:50 U Epithel Cells (Auto) 10-20 /lpf (0-5) H 02/06/23 21:50 Urine Bacteria (Auto) Negative (Negative) 02/06/23 21:50 Stl C. diff Tox B Gene Negative Cdiff Gene (Neg) 02/07/23 13:25 SARS-CoV-2, RNA, NAAT NEGATIVE (NEGATIVE) 02/06/23 18:35 Impressions Abdomen/Pelvis CT 02/06/23 17:30 Exam(s): CT ABDOMEN + PELVIS With Contrast IV Amt: 94ml EXAM: CT Abdomen and Pelvis With Intravenous Contrast CLINICAL HISTORY: Reason for exam: diverticulitis. TECHNIQUE: Axial computed tomography images of the abdomen and pelvis with intravenous contrast. CTDI is 24.2 mGy and DLP is 1296.77 mGy-cm. Automated exposure control was utilized for the study. A dose lowering technique was utilized adhering to the principles of ALARA. CONTRAST: Patient received 94ml of IV contrast COMPARISON: CT abdomen/pelvis on 01/22/2023 FINDINGS: Lung bases: Unremarkable. No mass. No consolidation. Heart: Coronary artery calcifications. ABDOMEN: Liver: Unremarkable. No mass. Gallbladder and bile ducts: Prior cholecystectomy. Probable postcholecystectomy ductal ectasia. Pancreas: Unremarkable. No mass. No ductal dilation. Spleen: Unremarkable. No splenomegaly. Adrenals: Unremarkable. No mass. Kidneys and ureters: Nonspecific bilateral perinephric fat stranding. Small right renal cyst. No hydronephrosis or obstructing stone. Stomach and bowel: Diverticulosis. Wall thickening and fat stranding involving the sigmoid colon, concerning for acute diverticulitis versus neoplasm. Further evaluation could be performed with colonoscopy during follow up if clinically indicated. Evaluation of the stomach is limited by underdistention. No small bowel obstruction. PELVIS: Appendix: Normal appendix. Bladder: Bladder wall thickening is concerning for active infiltrate changes versus cystitis. Please correlate with urinalysis. Reproductive: Unremarkable as visualized. ABDOMEN and PELVIS: Intraperitoneal space: Unremarkable. No free air. No significant fluid collection. Bones/joints: Postsurgical changes at L4-5. Degenerative changes of the spine. No acute fracture. No dislocation. Soft tissues: Small fat-containing umbilical hernia. Vasculature: Atherosclerotic changes of the vasculature. No abdominal aortic aneurysm or dissection. Severe stenoses in the common iliac arteries. Lymph nodes: Mildly prominent pericolonic lymph nodes. IMPRESSION: 1. Diverticulosis. Wall thickening and fat stranding involving the sigmoid colon, concerning for acute diverticulitis versus neoplasm. Further evaluation could be performed with colonoscopy during follow up. Mildly prominent pericolonic lymph nodes raises concern for colonic neoplasm and possible papa metastases. 2. Bladder wall thickening is concerning for active infiltrate changes versus cystitis. Please correlate with urinalysis. Electronically signed by: Viktoria Funk M.D. 02/06/23 19:57 PM
[2023-02-13] MEDS ORDERED: CLINOLIPID 20% IV FAT EMULSION 250 ML IV SCH (16:00)
[2023-02-13] MEDS ORDERED: [UNRECOGNIZED DRUG - OTHER] IV SCH (16:00)
[2023-02-13] MEDS ORDERED: CENTRAL TPN IV SCH (16:00)
[2023-02-13] MEDS: EZETIMIBE 10 MG TABLET PO SCH (20:23)
[2023-02-13] MEDS: PROPRANOLOL HCL 60 MG LA CAP PO SCH (20:24)
[2023-02-13] MEDS: STOP CLINOLIPID SCH (22:18)
[2023-02-14] MEDS: HEPARIN SOD 5,000 UNIT/0.5 ML VIAL SQ SCH (05:32)
[2023-02-14] MEDS: PANTOprazole 40 MG TAB PO SCH (05:32)
--- NOTE | 2023-02-14 05:33 | Surgery Progress Note ---
Date of Service February 14, 2023 Assessment & Plan (1) Colon stricture: Plan: Patient has been admitted on the hospitalist service. We recommend proceeding care as follows: Continue diet as tolerated Continue TPN while hospitalized Continue intravenous steroids. This seems to be helping patient's sigmoid stricture. 1 to 2 days of this modality recommended by previous surgical team Check a.m. labs when available Continue to encourage ambulation Subcutaneous heparin is in place for DVT prevention Admission and Anticipated Discharge Date Admission Date: February 06, 2023 Subjective Patient is resting comfortably in bed. He does note abdominal pain similar to what was noted since time of admission. Patient says that he is having bowel movements and passing flatus. He notes that he is tolerating solid food without any worsening of his abdominal pain. He denies any nausea or vomiting. He notes he has been ambulating in the hallway without difficulty Physical Exam Gastrointestinal (Abdomen): Abdomen is soft and nondistended. Abdomen is nonrigid bowel sounds are present. Patient had tenderness noted with palpation of his abdomen in a generalized fashion without rebound tenderness or guarding Results & Data Vital Signs (Past 12 Hours) Vital Signs Temp Pulse Resp BP Pulse Ox O2 Del Method 02/13/23 20:20 Room Air 02/13/23 20:19 36.5 C 79 14 108/65 96 Room Air PG Care Time/CCT Total # of Minutes Spent Total Time Spent with Patient: Total time spent is greater than 50% in coordination of care (as documented) at patient's floor/unit and/or counseling patient: Coding Level of Care Code 54626 SUB INP/OBS CARE 09/03MIN Diagnoses Colon stricture K56.699
[2023-02-14] MEDS: POLYETHYLENE (MIRALAX) 17 GM PACK PO SCH (08:02)
[2023-02-14] MEDS: MoRPHine SULFATE 4 MG/ML 1 ML CARP\\VIAL IV PRN (08:02)
[2023-02-14] MEDS: methylPREDNISolone 40 MG in SYRINGE 0 ML IV SCH (08:07)
[2023-02-14 08:19] LABS: BUN Creatinine Ratio 33.3 (10-20); Calcium 8.8 mg/dl (8.6-10.3); Creatinine Clr Calc Pharmacy 133.3 ml/min; Est GFR (African American) 119.9 ml/min; Est GFR (Non-African American) 103.4 ml/min; Magnesium 1.9 mg/dl (1.7-2.4)
[2023-02-14] MEDS: ADVANCED PROBIOTIC 1250 MG CAPSULE PO SCH (08:35)
[2023-02-14] MEDS: ROSUVASTATIN CALCIUM 20 MG TAB PO SCH (08:35)
[2023-02-14] MEDS: LOSARTAN POTASSIUM 50 MG TAB PO SCH (08:35)
[2023-02-14] MEDS: CLOPIDOGREL BISULFATE 75 MG TAB PO SCH (08:35)
[2023-02-14] MEDS: NIFEdipine EXTENDED REL 30 MG TABCR PO SCH (08:35)
[2023-02-14] MEDS: busPIRone 5 MG TAB PO SCH (08:35)
[2023-02-14] MEDS: CYANOCOBALAMIN (B-12) 500 MCG TABLET PO SCH (11:17)
--- NOTE | 2023-02-14 14:15 | Discharge Summary ---
Date of Service February 14, 2023 Admission HPI Per Admitting Provider 67-year-old male with PMH HLD, intermittent asthma, PAD, HTN, history of TIA, s/p carotid endarterectomy, GERD, prostate cancer s/p prostatectomy and radiation, and other problems listed below who presents to the ED for evaluation of abdominal pain by referral of general surgeon. History obtained from the patient and review of outpatient PCP, general surgery, urology records. 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 Prior to admission, patient underwent colonoscopy on 01/16 that did not show a mass but did show severe inflammation and stricture. The scope could not pass through the area of concern. Biopsy negative for dysplasia but showed hyperplastic colonic mucosa with mild inflammation. During admission, patient required PPN for nutritional support and he was treated with IV Zosyn. On the day of discharge, patient was tolerating regular diet and having soft bowel movements. He was discharged home on Augmentin. Patient reports the following day, abdominal pain returned. He has had a very poor appetite. Pain is in the LLQ/mid lower abdomen. Patient reports he continues to have soft bowel movements. He was seen at general surgery's office today and referred back to the ED for treatment with IV antibiotics. Patient denies fevers and chills. No chest pain or shortness of breath. Denies lightheadedness, dizziness, diaphoresis, syncopal events. No urinary symptoms. In the ED, patient is hemodynamically stable and labs are unremarkable. He was given IV Zosyn, IV morphine, IV Zofran, IVF. Admission Exam Per Admitting Provider Constitutional: WD/WN, vitals as above Eyes: PERRL, conjunctivae normal, anicteric sclerae ENMT: external ear and nose normal, oropharynx normal Respiratory: normal respiratory effort, lungs clear to auscultation Cardiovascular: Rate/Rhythm: regular rate and regular rhythm Vessels: normal peripheral pulses Extremities: no edema Gastrointestinal (Abdomen): Inspection/Auscultation: normal bowel sounds; abdomen not distended Percussion/Palpation: + abdomen tender (mild, lower abdomen) and abdomen soft; no guarding Musculoskeletal: no cyanosis or clubbing, extremities motor strength 5/5 Skin: no rashes, warm and dry Neurologic: PERRL, EOMI, accommodation nl, no face palsy, no dysarthria Psychiatric: A+Ox3, euthymic affect Principal Diagnosis Radiation colitis Discharge Exam Constitutional: WD/WN, vitals as above, NAD, sitting up in bed, pleasant, conversing easily Respiratory: normal respiratory effort, lungs clear to auscultation, no wheeze, rales, rhonchi. Normal insp/exp effort, no accessory muscle use Cardiovascular: RRR, no murmur, no edema Vessels: no JVD or carotid bruit Chest: normal inspection of chest Abdomen: Tenderness present in lower aspect of the abdomen. Musculoskeletal: no cyanosis or clubbing, extremities motor strength 5/5 Skin: no rashes, warm and dry normal turgor Neurologic: PERRL, EOMI, accommodation nl, no face palsy, no dysarthria CN's II- XI intact bilaterally and moves all extremities Psychiatric: A+Ox3, euthymic affect Discharge Data Allergies Allergy/AdvReac Type Severity Reaction Status Date / Time valsartan [From Diovan] Allergy Intermediate Rash Verified 02/06/23 19:14 simvastatin AdvReac Severe ELEVATED Verified 02/06/23 19:14 LIVER FUNCTION TESTS enalapril AdvReac Intermediate cough Verified 02/06/23 19:14 fenofibrate AdvReac Intermediate abdominal Verified 02/06/23 19:14 discomfort gemfibrozil AdvReac Intermediate abdominal Verified 02/06/23 19:14 discomfort hydrocodone AdvReac Intermediate GI upset Verified 02/06/23 19:14 niacin AdvReac Intermediate upset Verified 02/06/23 19:14 stomach Ejevodx-UKU-LiR Reductase AdvReac Intermediate MYALGIAS Verified 02/06/23 19:14 Inhibitor [Lmqecip-Hle-Fuy Reductase Inhibitor] Consultations 02/06/23 18:51 ED Decision to Admit Stat 02/06/23 22:02 Consult General Surgery Routine 02/06/23 22:33 Consult Infectious Diseases Routine Ordered Studies 02/06/23 17:30 CT Abd and Pelvis [CT abd pelvis IV con only] Stat Hospital Course (1) Colitis: (2) Sigmoid stricture: (3) Hypertension: (4) PAD (peripheral artery disease): (5) History of endarterectomy: (6) History of TIA (transient ischemic attack): Patient referred to the ED by Dr. Ankur Sifuentes for evaluation of ongoing abdominal pain. 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 Prior to admission, patient underwent colonoscopy on 01/16 that did not show a mass but did show severe inflammation and stricture. The scope could not pass through the area of concern. Biopsy negative for dysplasia but showed hyperplastic colonic mucosa with mild inflammation. During admission, patient required PPN for nutritional support and he was treated with IV Zosyn. On admission, CT abdomen pelvis was done which showed wall thickening and fatty stranding involving the sigmoid colon concerning for acute diverticulitis versus neoplasm. Evaluated by general surgery;sigmoid stricture felt to be secondary to radiation colitis Patient was admitted to general medical floor. He was started on IV Zosyn and TPN as per recommendation by surgery. Over the course of the hospitalization, patient tolerated advancement of diet; tolerating low fiber diet at discharge Patient completed 7-day course of antibiotic Nutrition was consulted and helped with comanagement for the diet. Patient was also given 2 days of steroid as per recommendation by surgery for radiation colitis At discharge, patient's abdominal pain was minimal. He was tolerating diet well and was having regular bowel movement. Patient was discharged home with instruction to follow-up with PCP and surgery Please note the above document was generated using voice recognition software. It may contain grammatical, syntax or spelling errors. Any formal questions or concerns about the content, text or information contained within the body of this dictation should be directly addressed to the provider for clarification (7) Prostate cancer: Total Time Total Time Spent Total Time Spent (In Minutes): 40 Total Time Includes: Examination of the Patient, Discharge Planning, Medication Reconciliation, Communication With Other Providers and Other Discharge Plan Discharge Items Patient Disposition: Home - Self-Care Reason For Visit: SIGMOID STRICTURE Discharge Diagnosis: Radiation colitis Condition on Discharge: Fair Activity: Resume your previous activity Non-emergency contact: Primary Care Provider Call non-emergency contact if: you have any medication questions and your symptoms worsen Follow-up/Referrals: Ankur Sifuentes MD [Physician] - 02/26/23 2:45 pm Ryan Woods PA-C [Primary Care Provider] - (Date & Time 02/19/2023 3:00 PM Provider Ryan Woods PA-C [facility] ) Diet: Low Fiber Addtl Attending Provider Instructions: You were admitted to the hospital with colitis. You are treated with IV antibiotics and steroids. Please follow low fiber diet at home. If you have any pain and low appetite; refer to clear liquid and full liquid diet. Contact your PCP and surgeon. You have follow-up scheduled with PCP for next week. You also have follow-up appointment with Dr. Sifuentes from surgery on February 26. Pending Studies at Discharge: No Stand-Alone Forms: [facility], Smoking Cessation Medications and DC Order Prescriptions: Continued albuterol sulfate [Ventolin HFA] 90 mcg/actuation HFA aerosol inhaler 2 puff inhalation Q4H PRN (Reason: Shortness Of Breath) nifedipine 90 mg tablet extended release 90 mg PO QAM Flovent HFA 110 mcg/actuation HFA aerosol inhaler 1 puff inhalation Q12H PRN (Reason: Shortness Of Breath Or Wheezing) buspirone 10 mg tablet 10 mg PO BID loratadine 10 mg capsule 10 mg PO DAILY PRN (Reason: Allergy Symptoms) clopidogrel [Plavix] 75 mg tablet 75 mg PO QAM colestipol 1 gram tablet 1 g PO HS ezetimibe [Zetia] 10 mg tablet 10 mg PO HS lansoprazole [Prevacid] 30 mg capsule,delayed release(DR/EC) 30 mg PO DAILYBB losartan [Cozaar] 100 mg tablet 100 mg PO QAM folic acid 1 mg tablet 1 mg PO QAM propranolol 120 mg Capsule,Extended Release 24hr 120 mg PO HS omega-3 fatty acids 1,000 mg Capsule 2,000 mg PO DAILY ondansetron HCl 8 mg tablet 8 mg PO Q8H PRN (Reason: NAUSEA/VOMITING) cyanocobalamin (vitamin B-12) 1,000 mcg tablet 1,000 mcg PO QAM thiamine mononitrate (vit B1) 100 mg Tablet 100 mg PO QAM polyethylene glycol 3350 [Miralax] 17 gram/dose Powder 17 g PO DAILY PRN (Reason: Constipation) rosuvastatin 20 mg tablet 20 mg PO DAILY tramadol 50 mg tablet 50 mg PO Q6H PRN (Reason: Pain) Qty: 10 0RF Discontinued valacyclovir [Valtrex] 500 mg tablet 500 mg PO QAM amoxicillin-pot clavulanate 875-125 mg tablet 1 tab PO BID Rx Instructions: STARTED 02/01/23 FOR 10 DAYS Discharge Orders: Discharge Order (Routine); Ordered 02/14/23 Ordered By: Maciej Fuentes/Other Patient Handouts: Obstruction Intestinal Admission Data Admit Date/Time: 02/06/23 18:55 Attending Provider: Maciej Varma Admit Provider: Luanne Potts Primary Care Provider: Ryan Woods Other Providers: Luanne Potts ; Anju Wallace ; Gennaro Travis ; Fish Brooke ; Dieter Baird I. ; Surendra Ca II ; Anai Craig ; Devante Johnson ; Erick Joseph ; Tsering Madera ; Alex Osborn Other Interventions: Discharge Summary Assessment (RN) Last Done: 02/14/23 13:40
[2023-02-14] MEDS ORDERED: [UNRECOGNIZED DRUG - OTHER] IV SCH (16:00)
[2023-02-14] MEDS ORDERED: CLINOLIPID 20% IV FAT EMULSION 250 ML IV SCH (16:00)
[2023-02-14] MEDS ORDERED: CENTRAL TPN IV SCH (16:00)
== END 2023-02-14 13:45 | disposition home health service (06) | DRG 394 ==
LOC: ED 13:45 → SUATTDRO 18:55 → 3N 18:55